=== PATIENT | male | born 1935 | race Caucasian/White ===

== ENCOUNTER 2017-02-21 06:17 | Inpatient (IN) | payer MEDICARE ==
[~2017-02-21] VITALS: Ht 177.8 cm; Wt 73.0 kg
[2017-02-21] VITALS (10 sets, daily range): BP systolic 124–226; BP diastolic 71–98; PULSE 67–88; RESP 18–28; TEMP 95.6–98; O2SAT 95–100
[~2017-02-21 06:17] MED LIST: AMLO10TA2 PO; ASPI81TA81 PO; CHEL50TA PO; CYAN100017 PO; GLIP5TAB8 PO; HYDR50TA3 PO; LEVO125T4 PO; LISI-515 PO; MAGN200T PO; PROS5TAB PO; TAMS0.4C4 PO; VITA10007 PO
[2017-02-21] MEDS ORDERED: SODIUM CHLORIDE 0.9% FLUSH 10 ML FLUSH IV FLUSH PRN ×2 (06:30→09:15)
[2017-02-21] MEDS ORDERED: HYDROmorphone HCL PF 1 MG/ML VIAL IVS ONE (06:30)
[2017-02-21] MEDS ORDERED: ONDANSETRON HCL 4 MG/2 ML VIAL IVP ONE (06:30)
--- NOTE | 2017-02-21 06:43 | PD ---
HPI Chief Complaint: Back/ Neck Pain or Injury Time Seen by Provider: 06:22 Travel History International Travel<30 days: No Contact w/Intl Traveler<30days: No Traveled to known affect area: No History of Present Illness HPI This is an 82-year-old male with a history of bladder cancer, who has bilateral ureteral stents, who presents today with complaints of severe left sided back pain. The patient was reportedly scheduled to have a procedure done by Dr. Maldonado, urologist this morning. states that they were reportedly supposed to present to the [facility] office at 6:30. She reports that he 's been in such pain overnight that when she took him to the office this morning , it was closed and she brought him immediately here. reports that one of his ureteral stents has dislodged. She believes he was supposed to have this repaired today by Dr. Maldonado. There is no reported fevers, chills. There is associated nausea and vomiting. He denies any abdominal pain. He does feel the urge to urinate when I went to examine him. PFSH Past Medical History Cancer: No Cardiovascular Problems: No Diabetes: Yes Endocrine: No Glaucoma: No Hepatitis: No Hiatal Hernia: No Hypertension: Yes Immune Disorder: No Musculoskeletal: No Neurologic: No Reproductive: No Respiratory: No Thyroid Disease: Yes Past Surgical History Abdominal Surgery: Yes (hernia repair) Cardiac Surgery: No Ear Surgery: No Endocrine Surgery: No Eye Surgery: Yes (sx for double vision left eye) Genitourinary Surgery: No Gynecologic Surgery: No Oral Surgery: No Pacemaker: No Thoracic Surgery: No Social History Alcohol Use: Yes (occ) Tobacco Use: No Substance Use: No Allergies-Medications (Allergen,Severity, Reaction): Coded Allergies: No Known Allergies (Verified , 02/21/17) Reported Meds & Prescriptions Reported Meds & Active Scripts Active Reported Zinc (Zinc Gluconate) 50 Mg Tab 1 Tab PO DAILY B-12 (Cyanocobalamin) 1,000 Mcg Cap 1,000 Mcg PO DAILY Magnesium 200 Mg Tab 250 Mg PO DAILY Vitamin C (Ascorbic Acid) 1,000 Mg Tab 1,000 Mg PO Proscar (Finasteride) 5 Mg Tab 5 Mg PO DAILY Do not crush. Tamsulosin (Tamsulosin HCl) 0.4 Mg Cap 0.4 Mg PO HS Amlodipine (Amlodipine Besylate) 10 Mg Tab 10 Mg PO DAILY Levothyroxine (Levothyroxine Sodium) 125 Mcg Tab 125 Mcg PO DAILY Review of Systems Except as stated in HPI: all other systems reviewed are Neg General / Constitutional: No: Fever, Chills HENT: No: Lightheadedness Cardiovascular: No: Chest Pain or Discomfort Respiratory: No: Cough, Shortness of Breath Gastrointestinal: Positive: Nausea, Vomiting Genitourinary: Positive: Hematuria (reported), No: Dysuria Musculoskeletal: Positive: Pain (left flank pain), No: Weakness Neurologic: No: Weakness, Dizziness, Headache Physical Exam Narrative GENERAL: Well-nourished, well-developed patient, in obvious discomfort.. SKIN: Focused skin assessment warm/dry. HEAD: Normocephalic/atraumatic. EYES: No scleral icterus. No injection or drainage. NECK: Supple, trachea midline. CARDIOVASCULAR: Regular rate and rhythm without murmurs, gallops, or rubs. RESPIRATORY: Breath sounds equal bilaterally. No accessory muscle use. GASTROINTESTINAL: Abdomen soft, non-tender, nondistended. No rebound or guarding. MUSCULOSKELETAL: No cyanosis, or edema. BACK: Subjective left flank pain. No CVA tenderness to percussion. On examination of his back, there is no lesions or extruding urostomy tubes. reports that they are subcutaneous. NEUROLOGICAL: Awake and alert and in pain. Cranial nerves II through XII intact. Motor grossly within normal limits. Five out of 5 muscle strength in all muscle groups. Normal speech. Data Data Last Documented VS Vital Signs Date Time Temp Pulse Resp B/P Pulse Ox O2 Delivery O2 Flow Rate FiO2 02/21/17 06:49 80 21 194/86 98 Room Air 02/21/17 06:19 97.5 Orders Complete Blood Count With Diff (02/21/17 06:22) Comprehensive Metabolic Panel (02/21/17 06:22) Urinalysis - C+S If Indicated (02/21/17 06:22) Iv Access Insert/Monitor (02/21/17 06:22) Ecg Monitoring (02/21/17 06:22) Oximetry (02/21/17 06:22) Ondansetron Inj (Zofran Inj) (02/21/17 06:30) Sodium Chloride 0.9% Flush (Ns Flush) (02/21/17 06:30) Abdomen, Kub Only (02/21/17 06:22) Hydromorphone Pf Inj (Dilaudid Pf Inj) (02/21/17 06:30) Ct Abd/Pel W/O Iv Contrast (02/21/17 06:43) Labs Laboratory Tests Test 02/21/17 06:25 White Blood Count 9.4 TH/MM3 Red Blood Count 2.98 MIL/MM3 Hemoglobin 9.3 GM/DL Hematocrit 26.5 % Mean Corpuscular Volume 88.9 FL Mean Corpuscular Hemoglobin 31.1 PG Mean Corpuscular Hemoglobin 34.9 % Concent Red Cell Distribution Width 14.2 % Platelet Count 140 TH/MM3 Mean Platelet Volume 6.3 FL Neutrophils (%) (Auto) 86.3 % Lymphocytes (%) (Auto) 8.3 % Monocytes (%) (Auto) 4.3 % Eosinophils (%) (Auto) 0.5 % Basophils (%) (Auto) 0.6 % Neutrophils # (Auto) 8.1 TH/MM3 Lymphocytes # (Auto) 0.8 TH/MM3 Monocytes # (Auto) 0.4 TH/MM3 Eosinophils # (Auto) 0.0 TH/MM3 Basophils # (Auto) 0.1 TH/MM3 CBC Comment DIFF FINAL Differential Comment Urine Color RED Urine Turbidity CLOUDY Urine pH 7.5 Urine Specific [place] 1.014 Urine Protein 300 OR GREATER mg/dL Urine Glucose (UA) 100 mg/dL Urine Ketones NEG mg/dL Urine Occult Blood LARGE Urine Nitrite NEG Urine Bilirubin NEGATIVE Urine Urobilinogen 0.2 MG/DL Urine Leukocyte Esterase SMALL Urine RBC /hpf Urine WBC 0-2 /hpf Urine Squamous Epithelial 0-5 /hpf Cells Urine Bacteria RARE /hpf Microscopic Urinalysis Comment CULT NOT INDICATED MDM Medical Decision Making Medical Screen Exam Complete: Yes Emergency Medical Condition: Yes Differential Diagnosis Dislodged ureteral tube versus pyelonephritis versus hydronephrosis Narrative Course He 2-year-old male with a history of bladder cancer, who has bilateral ureteral stents, who presents with complaints of severe left sided flank pain with associated nausea vomiting. The patient was scheduled to have a ureteral stent placed today by Dr. Chetan Maldonado at the [facility] [place]. The patient was brought here because the states that when they went there earlier this morning, there was no one there. She reports he is in severe pain and has had nausea vomiting. The patient appears to be in significant pain. I spoke with Dr. Maldonado, who agrees given the patient's pain and presentation he is best served by staying here at [facility]. Labs and CT are ordered. He'll be signed out to Dr. Elizabteh Rojas, physician replacing this physician, who will evaluate the studies and make the appropriate disposition. I anticipate he will likely need a stent placed by our interventional radiologist. Diagnosis Primary Impression: severe left flank pain Additional Impressions: Nausea & vomiting displaced ureteral stent Praveen Ingram MD February 21, 2017 06:43
--- NOTE | 2017-02-21 06:53 | RADRPT ---
EXAM DATE/TIME: 02/21/2017 06:31 [facility] COMPARISON: URETERAL STENT PLACEMENT,RIGHT, September 24, 2016, 9:43. INDICATIONS : Abdominal pain, nausea, and vomiting. MEDICAL HISTORY : None. SURGICAL HISTORY : None. ENCOUNTER: Initial ACUITY: 1 day PAIN SCORE: 9/10 LOCATION: Abdomen FINDINGS: Supine view of the abdomen was performed. The abdominal bowel gas pattern is normal. There is stool throughout the colon. There is no abnormal dilatation. There is a double-J right ureteral stent in pl [place]. There are calcifications in the pelvis suggestive of phleboliths. The osseous structures are unr emarkable. CONCLUSION: 1. Right sided double-J stent in good position. 2. Benign-appearing abdomen. Sivakumar Bailey MD on February 21, 2017 at 6:51 Board Certified Radiologist. This report was verified electronically.
[2017-02-21 06:54] LABS: AUTOMATED NEUTROPHIL # 8.1 TH/MM3 (1.8-7.7); BASOPHIL # 0.1 TH/MM3 (0-0.2); BASOPHIL % 0.6 % (0.0-2.0); EOSINOPHIL % 0.5 % (0.0-4.0); HEMATOCRIT 26.5 % (39.0-51.0); HEMO FLAGS DIFF FINAL; LYMPH % 8.3 % (9.0-44.0); LYMPHOCYTE # 0.8 TH/MM3 (1.0-4.8); MEAN CELL VOLUME 88.9 FL (80.0-100.0); MEAN CORPUSCULAR HEMOGLOBIN 31.1 PG (27.0-34.0); MEAN CORPUSCULAR HGB CONC 34.9 % (32.0-36.0); MONO % 4.3 % (0.0-8.0); NEUT % 86.3 % (16.0-70.0); PLATELET COUNT 140 TH/MM3 (150-450); RED BLOOD COUNT 2.98 MIL/MM3 (4.50-5.90); RED CELL DISTRIBUTION WIDTH 14.2 % (11.6-17.2); WHITE BLOOD COUNT 9.4 TH/MM3 (4.0-11.0)
[2017-02-21 07:19] LABS: PH, URINE 7.5 (5.0-8.5); URINE COLOR RED (YELLW/STRAW)
[2017-02-21 07:20] LABS: BLOOD, URINE LARGE (NEG); GLUCOSE,URINE 100 mg/dL (NEG); KETONE, URINE NEG (NEG); NITRITE,URINE NEG (NEG); WBC, URINE 0-2 /hpf (0-5)
[2017-02-21 07:21] LABS: BACTERIA, URINE RARE /hpf; COMMENT (UR) CULT NOT INDICATED; CULTURE IF INDICATED CULT NOT INDICATED; SQUAMOUS EPITHELIAL CELL URINE 0-5 /hpf (0-5)
[2017-02-21 07:29] LABS: ANION GAP 16 MEQ/L (5-15); AST (GOT) 41 U/L (15-37); BICARBONATE 18.1 MEQ/L (21.0-32.0); BLOOD UREA NITROGEN 77 MG/DL (7-18); CHLORIDE 104 MEQ/L (98-107); GLOMERULAR FILTRATION RATE 10 ML/MIN (>89); POTASSIUM 4.5 MEQ/L (3.5-5.1); SODIUM (NA) 138 MEQ/L (136-145)
[2017-02-21 07:32] LABS: ALKALINE PHOSPHATASE 94 U/L (45-117); ALT (GPT) 54 U/L (12-78); TOTAL BILIRUBIN ADULT 0.4 MG/DL (0.2-1.0)
--- NOTE | 2017-02-21 08:13 | EKG ---
Date Performed: 02/21/2017 Time Performed: 06:18:52 PTAGE: 82 years EKG: Sinus rhythm WITH FIRST DEGREE AV BLOCK RIGHT BUNDLE BRANCH BLOCK LEFT ANTERIOR FASCICULAR BLOCK ABNORMAL ECG NO PREVIOUS TRACING DOCTOR: Narinder Scott Interpretating Date/Time 02/21/2017 08:12:54
--- NOTE | 2017-02-21 08:17 | RADRPT ---
EXAM DATE/TIME: 02/21/2017 08:00 [facility] COMPARISON: No previous studies available for comparison. INDICATIONS : Left flank pain. ORAL CONTRAST: No oral contrast ingested. RADIATION DOSE: 12.25 CTDIvol (mGy) MEDICAL HISTORY : Carcinoma, bladder. Renal failure, chronic. Diabetes mellitus type 2.Hypertension. SURGICAL HISTORY : Bilateral renal stents. ENCOUNTER: Initial ACUITY: 1 day PAIN SCALE: 6/10 LOCATION: Left flank TECHNIQUE: Volumetric scanning of the abdomen and pelvis was performed. Using automated exposure control and ad justment of the mA and/or kV according to patient size, radiation dose was kept as low as reasonably achievable to obtain optimal diagnostic quality images. FINDINGS: LOWER LUNGS: The visualized lower lungs are clear. LIVER: Homogeneous density without lesion. There is no dilation of the biliary tree. No calcified gallston es. SPLEEN: Normal size without lesion. PANCREAS: Within normal limits. KIDNEYS: There is right-sided hydronephrosis eventhough there is a right-sided nephroureteral stent. The dista l aspect of the stent is barely within the urinary bladder. There is soft tissue density and debris w ithin the posterior aspect of urinary bladder. There is left-sided hydronephrosis and hydroureter wit h dilatation of the distal ureter which appears to contain soft tissue density or debris. Bilateral r enal low densities likely cysts. ADRENAL GLANDS: Within normal limits. VASCULAR: There is no aortic aneurysm. BOWEL/MESENTERY: The stomach, small bowel, and colon demonstrate no acute abnormality. There is no free intraperitone al air or fluid. Small to moderate hiatal hernia. Scattered diverticulosis. ABDOMINAL WALL: Within normal limits. RETROPERITONEUM: There is no lymphadenopathy. BLADDER: No wall thickening or mass. REPRODUCTIVE: Within normal limits. INGUINAL: There is no lymphadenopathy or hernia on the right. Fat-containing left inguinal hernia. MUSCULOSKELETAL: Within normal limits for patient age. CONCLUSION: 1. Right-sided hydroureter nephrosis even though there is a right-sided nephroureteral stent. 2. Left-sided hydronephrosis and hydroureter with dilatation of the distal left ureter containing sof t tissue density/mass and/or debris. 3. There is no mass and debris within the posterior neobladder likely combination of tumor plus hemor rhage. 4. Hiatal hernia, bilateral renal low densities and diverticulosis. Lew Mas MD on February 21, 2017 at 8:08 Board Certified Radiologist. This report was verified electronically.
[2017-02-21] MEDS ORDERED: ACETAMINOPHEN 325 MG TAB PO PRN (09:15)
[2017-02-21] MEDS ORDERED: NALOXONE HCL 0.4 MG/ML AMP IV PRN (09:15)
[2017-02-21] MEDS ORDERED: MAGNESIUM HYDROXIDE SUSP 30 ML CUP PO PRN (09:15)
[2017-02-21] MEDS ORDERED: ACETAMINOPHEN/HYDROcodone 325 MG/5 MG TAB PO PRN (09:15)
--- NOTE | 2017-02-21 09:29 | RADRPT ---
EXAM DATE/TIME: 02/21/2017 09:11 [facility] COMPARISON: No previous studies available for comparison. INDICATIONS : Cough, nausea, vomiting, blood in urine. MEDICAL HISTORY : Carcinoma, bladder. 3 years ago and pt. had chemo. SURGICAL HISTORY : Bladder stents. ENCOUNTER: Initial ACUITY: 3 days PAIN SCORE: 0/10 LOCATION: Bilateral chest FINDINGS: A single view of the chest demonstrates the lungs to be symmetrically aerated without evidence of mas s, infiltrate or effusion. The cardiomediastinal contours are unremarkable. Osseous structures are intact. CONCLUSION: No acute disease. Lew Mas MD on February 21, 2017 at 9:27 Board Certified Radiologist. This report was verified electronically.
--- NOTE | 2017-02-21 09:45 | HHI.HP ---
HPI Service [facility] Hospitalists Primary Care Physician Jasmeet Farah MD Admission Diagnosis Hydronephrosis, bladder cancer Chief Complaint: Back pain Travel History International Travel<30 Days: No Contact w/Intl Traveler <30 Da: No Traveled to Known Affected Are: No History of Present Illness Mr. 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 Maldonado. Pt presented to the ED with complaints of worsening back pain. Pt reports that a few days ago one of his ureteral stents came out and has not been urinating well since that time. Pts reports that he has been having hematuria for the last 3 days. He has also been very nauseated and has not eaten or had any fluid intake since yesterday afternoon. And was eating very minimal for the last [address] Maldonado as an outpt yesterday and had been planned for cystoscopy with possible bilateral stent placement for today but he was in too much pain and proceeded to the ED this morning. Labs at admission noted an acute worsening of his baseline CKD with Cr 5.59 today. His baseline renal function in outpt records noted Cr between 1.9-2.3. CT Abd/pelvis noted tight- sided hydroureter nephrosis even though there is a right-sided nephroureteral stent, left-sided hydronephrosis and hydroureter with dilatation of the distal left ureter containing soft tissue density/mass and/or debris, and there is no mass and debris within the posterior neobladder likely combination of tumor plus hemorrhage. Denies any fevers/chills, chest pain, SOB, palpitations, dizziness, or weakness. Review of Systems Constitutional: DENIES: Fever, Chills Eyes: DENIES: Vision loss Ears, nose, mouth, throat: DENIES: Hearing loss Respiratory: DENIES: Cough, Shortness of breath Cardiovascular: DENIES: Chest pain, Palpitations, Lower Extremity Edema Gastrointestinal: COMPLAINS OF: Nausea, DENIES: Abdominal pain, Constipation, Diarrhea Genitourinary: COMPLAINS OF: Hematuria, DENIES: Dysuria Musculoskeletal: COMPLAINS OF: Back pain Integumentary: DENIES: Rash Immunologic/allergic: DENIES: Urticaria Neurologic: DENIES: Headache Psychiatric: DENIES: Confusion Other Decreased urine output Past Family Social History Past Medical History CKD, stage 4, Cr typically between 2-2.3 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, on Opdivo Hydronephrosis due to ureteral stricture Chronic DVT/Hx of PE HTN Hyperlipidemia Diabetes mellitus, Hgb A1C 5.8% on 02/18/17 Hypothyroidism Chronic anemia Cataracts Past Surgical History Cystoscopy with ureteral stent placement Bilateral cataract surgery Hernia repair Varicose vein ligation Strabismus repair Reported Medications -Proscar 5 Mg PO DAILY -Tamsulosin 0.4 Mg PO HS -Amlodipine 10 Mg PO DAILY ?Levothyroxine 125 Mcg PO DAILY Zinc (Zinc Gluconate) 50 Mg Tab 1 Tab PO DAILY B-12 (Cyanocobalamin) 1,000 Mcg Cap 1,000 Mcg PO DAILY Magnesium 200 Mg Tab 250 Mg PO DAILY Vitamin C (Ascorbic Acid) 1,000 Mg Tab 1,000 Mg PO Allergies: Coded Allergies: No Known Allergies (Verified , 02/21/17) Family History Father with hx of Leukemia Social History Denies any alcohol, tobacco or illicit drug use Physical Exam Vital Signs Vital Signs Date Time Temp Pulse Resp B/P Pulse Ox O2 Delivery O2 Flow Rate FiO2 02/21/17 07:39 86 18 165/78 97 Room Air 02/21/17 06:49 80 21 194/86 98 Room Air 02/21/17 06:19 97.5 82 28 226/94 100 Physical Exam GENERAL: This is a well-nourished, well-developed patient, in no apparent distress. HEENT: Atraumatic. Normocephalic. No temporal or scalp tenderness. No scleral icterus. Airway patent. NECK: Trachea midline, supple, nontender. CARDIO: Regular. RESP: CTA bilaterally. No wheezes, rales, or rhonchi. ABD: +BS, soft, non-tender, nondistended. EXT: Extremities without clubbing, cyanosis, or edema. NEURO: Awake and alert. Motor and sensory grossly within normal limits. Normal speech. Laboratory Laboratory Tests Test 02/21/17 06:25 White Blood Count 9.4 Red Blood Count 2.98 Hemoglobin 9.3 Hematocrit 26.5 Mean Corpuscular Volume 88.9 Mean Corpuscular Hemoglobin 31.1 Mean Corpuscular Hemoglobin 34.9 Concent Red Cell Distribution Width 14.2 Platelet Count 140 Mean Platelet Volume 6.3 Neutrophils (%) (Auto) 86.3 Lymphocytes (%) (Auto) 8.3 Monocytes (%) (Auto) 4.3 Eosinophils (%) (Auto) 0.5 Basophils (%) (Auto) 0.6 Neutrophils # (Auto) 8.1 Lymphocytes # (Auto) 0.8 Monocytes # (Auto) 0.4 Eosinophils # (Auto) 0.0 Basophils # (Auto) 0.1 CBC Comment DIFF FINAL Differential Comment Urine Color RED Urine Turbidity CLOUDY Urine pH 7.5 Urine Specific [place] 1.014 Urine Protein 300 OR GREATER Urine Glucose (UA) 100 Urine Ketones NEG Urine Occult Blood LARGE Urine Nitrite NEG Urine Bilirubin NEGATIVE Urine Urobilinogen 0.2 Urine Leukocyte Esterase SMALL Urine RBC Urine WBC 0-2 Urine Squamous Epithelial 0-5 Cells Urine Bacteria RARE Microscopic Urinalysis Comment CULT NOT INDICATED Sodium Level 138 Potassium Level 4.5 Chloride Level 104 Carbon Dioxide Level 18.1 Anion Gap 16 Blood Urea Nitrogen 77 Creatinine 5.59 Estimat Glomerular Filtration 10 Rate Random Glucose 203 Calcium Level 9.3 Total Bilirubin 0.4 Aspartate Amino Transf 41 (AST/SGOT) Alanine Aminotransferase 54 (ALT/SGPT) Alkaline Phosphatase 94 Total Protein 8.0 Albumin 3.5 Result Diagram: 02/21/1762402/21/17624 Imaging Last Impressions Abdomen/Pelvis CT 02/21/17642 Signed Impressions: Service Date/Time: Tuesday, February 21, 2017 08:00 - CONCLUSION: 1. Right-sided hydroureter nephrosis even though there is a right-sided nephroureteral stent. 2. Left-sided hydronephrosis and hydroureter with dilatation of the distal left ureter containing soft tissue density/mass and/or debris. 3. There is no mass and debris within the posterior neobladder likely combination of tumor plus hemorrhage. 4. Hiatal hernia, bilateral renal low densities and diverticulosis. Lew Mas MD Abdomen X-Ray 02/21/17621 Signed Impressions: Service Date/Time: Tuesday, February 21, 2017 06:31 - CONCLUSION: 1. Right sided double-J stent in good position. 2. Benign-appearing abdomen. Sivakumar Bailey MD Septic Shock Reassessment Heart: Regular rate and rhythm Lungs: Clear Skin: Warm Assessment and Plan Problem List: (1) Hydronephrosis due to obstructive malignant bladder cancer Status: Acute Plan: - Pt admitted with worsening pain and PARAM/CKD, stage 4 secondary to obstructing metastatic urothelial bladder cancer - Pt follows with Dr. Maldonado and had been planned for cystoscopy with possible bilateral stent placement today but pt was in too much pain and proceeded to the ED. - Labs at admission noted an acute worsening of his baseline CKD with Cr 5.59 today. - CT Abd/pelvis --> Right-sided hydroureter nephrosis even though there is a right-sided nephroureteral stent. Left-sided hydronephrosis and hydroureter with dilatation of the distal left ureter containing soft tissue density/mass and/or debris. There is no mass and debris within the posterior neobladder likely combination of tumor plus hemorrhage. - Urology has been consulted. - The case has been discussed with IR and pt would likely benefit from bilateral nephrostomy tubes and this was discussed with Urology as well and this is planned for today. - Urology has also requested antegrade nephrostogram but IR reports that this cannot be performed until Friday. - IVF - Monitor labs - Pain control PRN - DVT prophylaxis (2) Acute worsening of stage 4 chronic kidney disease Status: Acute Plan: - See above. 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 Maldonado for Urology and Dr. Machado for Oncology. - Pt is currently on Opdivo (4) HTN (hypertension), benign Status: Chronic Plan: - Home meds continued - Clonidine PRN (5) Hypothyroidism Status: Chronic Plan: - Home meds continued (6) Hyperlipidemia Status: Chronic Assessment and Plan Patient examined. Assessment and plan formulated with Jessenia Ramsey PA-C. I agree with the above. Case d/w Dr. Majano, Urology (02/21/17) Case d/w Dr. Henderson, Interventional Radiology (02/21/17) Will obtain b/l percutaneous nephrostomy tubes once kidneys are decompressed, consider b/l antegrade nephrostogram repeat BMP in AM, monitor renal function Physician Certification 2 Midnight Certification Type: Admission for Inpatient Services Order for Inpatient Services The services are ordered in accordance with Medicare regulations or non- Medicare payer requirements, as applicable. In the case of services not specified as inpatient-only, they are appropriately provided as inpatient services in accordance with the 2-midnight benchmark. Estimated LOS (days): 4 4 days is the estimated time the patient will need to remain in the hospital, assuming treatment plan goals are met and no additional complications. Post-Hospital Plan: Not yet determined Jessenia Ramsey February 21, 2017 09:45 Dustin Moreno DO February 21, 2017 11:03
[2017-02-21] MEDS ORDERED: cloNIDine HCL 0.1 MG TAB PO PRN (10:00)
[2017-02-21] MEDS: ONDANSETRON HCL 4 MG/2 ML VIAL IVP PRN ×2 (10:20→16:59)
[2017-02-21 10:44] LABS: APTT (PATIENT) 23.6 SEC (24.3-30.1); PROTHROMBIN TIME - PATIENT 10.5 SEC (9.8-11.6)
[2017-02-21] MEDS: FINASTERIDE 5 MG TAB PO SCH (11:00)
--- NOTE | 2017-02-21 11:32 | PD ---
Data Data Last Documented VS Vital Signs Date Time Temp Pulse Resp B/P Pulse Ox O2 Delivery O2 Flow Rate FiO2 02/21/17 07:39 86 18 165/78 97 Room Air 02/21/17 06:19 97.5 Orders Complete Blood Count With Diff (02/21/17 06:22) Comprehensive Metabolic Panel (02/21/17 06:22) Urinalysis - C+S If Indicated (02/21/17 06:22) Iv Access Insert/Monitor (02/21/17 06:22) Ecg Monitoring (02/21/17 06:22) Oximetry (02/21/17 06:22) Ondansetron Inj (Zofran Inj) (02/21/17 06:30) Sodium Chloride 0.9% Flush (Ns Flush) (02/21/17 06:30) Abdomen, Kub Only (02/21/17 06:22) Hydromorphone Pf Inj (Dilaudid Pf Inj) (02/21/17 06:30) Ct Abd/Pel W/O Iv Contrast (02/21/17 06:43) Electrocardiogram (02/21/17 06:18) Consult Urology (02/21/17 ) Admit To Inpatient (02/21/17 ) Code Status (02/21/17 09:08) Vital Signs (Adult) Q4H (02/21/17 09:08) Activity Oob With Assistance (02/21/17 09:08) Diet Npo (02/21/17 Breakfast) Sodium Chloride 0.9% Flush (Ns Flush) (02/21/17 09:15) Sodium Chloride 0.9% Flush (Ns Flush) (02/21/17 21:00) Acetaminophen (Tylenol) (02/21/17 09:15) Ondansetron Inj (Zofran Inj) (02/21/17 09:15) Magnesium Hydroxide Liq (Milk Of Magnesi (02/21/17 09:15) Temazepam (Restoril) (02/21/17 09:15) Basic Metabolic Panel (Bmp) (02/22/17 06:00) Chest, Single Ap (02/21/17 09:08) Electrocardiogram (02/21/17 09:08) Pt Request For Service (02/21/17 09:08) Scd Bilateral/Knee High JUDITH.BID (02/21/17 09:08) Naloxone Inj (Narcan Inj) (02/21/17 09:15) Inpatient Certification (02/21/17 ) Acetamin-Hydrocod 325-5 Mg ([place] 5-325 (02/21/17 09:15) Hydromorphone Pf Inj (Dilaudid Pf Inj) (02/21/17 09:15) Admit Order (Ed Use Only) (02/21/17 09:14) Labs Laboratory Tests Test 02/21/17 06:25 White Blood Count 9.4 TH/MM3 Red Blood Count 2.98 MIL/MM3 Hemoglobin 9.3 GM/DL Hematocrit 26.5 % Mean Corpuscular Volume 88.9 FL Mean Corpuscular Hemoglobin 31.1 PG Mean Corpuscular Hemoglobin 34.9 % Concent Red Cell Distribution Width 14.2 % Platelet Count 140 TH/MM3 Mean Platelet Volume 6.3 FL Neutrophils (%) (Auto) 86.3 % Lymphocytes (%) (Auto) 8.3 % Monocytes (%) (Auto) 4.3 % Eosinophils (%) (Auto) 0.5 % Basophils (%) (Auto) 0.6 % Neutrophils # (Auto) 8.1 TH/MM3 Lymphocytes # (Auto) 0.8 TH/MM3 Monocytes # (Auto) 0.4 TH/MM3 Eosinophils # (Auto) 0.0 TH/MM3 Basophils # (Auto) 0.1 TH/MM3 CBC Comment DIFF FINAL Differential Comment Urine Color RED Urine Turbidity CLOUDY Urine pH 7.5 Urine Specific [place] 1.014 Urine Protein 300 OR GREATER mg/dL Urine Glucose (UA) 100 mg/dL Urine Ketones NEG mg/dL Urine Occult Blood LARGE Urine Nitrite NEG Urine Bilirubin NEGATIVE Urine Urobilinogen 0.2 MG/DL Urine Leukocyte Esterase SMALL Urine RBC /hpf Urine WBC 0-2 /hpf Urine Squamous Epithelial 0-5 /hpf Cells Urine Bacteria RARE /hpf Microscopic Urinalysis Comment CULT NOT INDICATED Sodium Level 138 MEQ/L Potassium Level 4.5 MEQ/L Chloride Level 104 MEQ/L Carbon Dioxide Level 18.1 MEQ/L Anion Gap 16 MEQ/L Blood Urea Nitrogen 77 MG/DL Creatinine 5.59 MG/DL Estimat Glomerular Filtration 10 ML/MIN Rate Random Glucose 203 MG/DL Calcium Level 9.3 MG/DL Total Bilirubin 0.4 MG/DL Aspartate Amino Transf 41 U/L (AST/SGOT) Alanine Aminotransferase 54 U/L (ALT/SGPT) Alkaline Phosphatase 94 U/L Total Protein 8.0 GM/DL Albumin 3.5 GM/DL [facility] Supervised Visit with [facility]AN: Yes Interpretation(s) Afebrile, anemic Renal insufficiency worsening from prior labs, anion gap is 16 with a low bicarbonate Urinalysis: Large amount of blood Last 24 hours Impressions Chest X-Ray 02/21/17 0908 Signed Impressions: Service Date/Time: Tuesday, February 21, 2017 09:11 - CONCLUSION: No acute disease. Lew Mas MD Abdomen/Pelvis CT 02/21/17 0643 Signed Impressions: Service Date/Time: Tuesday, February 21, 2017 08:00 - CONCLUSION: 1. Right-sided hydroureter nephrosis even though there is a right-sided nephroureteral stent. 2. Left-sided hydronephrosis and hydroureter with dilatation of the distal left ureter containing soft tissue density/mass and/or debris. 3. There is no mass and debris within the posterior neobladder likely combination of tumor plus hemorrhage. 4. Hiatal hernia, bilateral renal low densities and diverticulosis. Lew Mas MD Abdomen X-Ray 02/21/1722 Signed Impressions: Service Date/Time: Tuesday, February 21, 2017 06:31 - CONCLUSION: 1. Right sided double-J stent in good position. 2. Benign-appearing abdomen. Sivakumar Bailey MD Narrative Course This is an 82-year-old male who presents to the emergency department with a history of bladder cancer followed by Dr. Maldonado who presents having passed his left ureteral stent yesterday with severe left-sided flank pain associated with vomiting. He was placed on a monitor and an IV was established. Labs are obtained which were reassuring. CT was obtained which demonstrates bilateral hydronephrosis. I spoke to Dr. Majano who works with Dr. Maldonado regarding the patient and he would like interventional radiology to evaluate the patient for a possible left-sided ureteral stent versus nephrostomy tube. I discussed this with Dr. Moreno who will follow-up. Physician Communication Physician Communication Discussed with Dr. Majano and Dr. Moreno Diagnosis Primary Impression: severe left flank pain Additional Impressions: Nausea & vomiting displaced ureteral stent Elizabeth Rojas MD February 21, 2017 11:32
[2017-02-21] MEDS ORDERED: LEVOFLOXACIN 500 MG PREMIX INJ 100 ML IV ONE (11:34)
[2017-02-21] MEDS ORDERED: fentaNYL CITRATE 250 MCG/5 ML AMP ONE (11:34)
[2017-02-21] MEDS ORDERED: MIDAZOLAM HCL 5 MG/5 ML VIAL ONE (11:34)
[2017-02-21] MEDS ORDERED: IOHEXOL 350 MG/ML 50 ML BTL (for RAD DIAG) ONE (12:47)
--- NOTE | 2017-02-21 12:57 | PD.RAD ---
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 Right ureteric stent. 8FR PCNU on left. 8FR PCN on right Plan Right sided antegrade pyelogram on Friday, -15 with possible ureteric stent removal and placement of right sided PCNU Juan Henderson MD February 21, 2017 12:57
[2017-02-21] MEDS: HYDROmorphone HCL PF 1 MG/ML VIAL IV PUSH PRN (14:53)
--- NOTE | 2017-02-21 16:01 | RADRPT ---
EXAM DATE/TIME: 02/21/2017 12:00 [facility] COMPARISON: No previous studies available for comparison. INDICATIONS : Patient is in need of placement of a left sided nephroureteral tube for drainage of left kidney due t o ureteral stricture. MEDICAL HISTORY : History of metastatic urothelial bladder cancer, hydronephrosis, chronic DVT, PE, HTN, hyperlipidemia , DM, hypothyroidism, chronic anemia, cataracts. SURGICAL HISTORY : History of bilateral ureteral stent placement, cystoscopy, bilateral catarct removal, hernia repair, varicose vein ligation, strabismus repair. ENCOUNTER: Initial ACUITY: 1 week PAIN SCORE: 0/10 FLUORO TIME: 9.0 minutes IMAGE SERIES: 3 SEDATION TIME: 35 minutes CONTRAST: 11 cc Omnipaque (iohexol) 350 MEDICATION(S): 1.) 4.5 mg midazolam (Versed) IV 2.) 225 mcg fentanyl (Sublimaze) IV Vancomycin within 2 hours of procedure, Ancef (or alternative) within 1 hour of procedure. DEVICE(S): 1.) 8 [place] 24cm nephroureteral stent Flexima PROCEDURE : 1. Ultrasound-guided puncture of the kidney. 2. Antegrade percutaneous pyelogram. 3. Percutaneous nephroureteral stent placement. 4. Conscious sedation with continuous EKG and oximetry monitoring. The risks, benefits and alternatives to the procedure were explained and verbal and written consent w as obtained. The site was prepped in sterile fashion. Full sterile technique was used, including ca p, mask, sterile gloves and gown and a large sterile sheet. Hand hygiene and 2% chlorhexidine and/or betadine/alcohol prep was utilized per protocol for cutaneous antisepsis. The skin and subcutaneous tissues were infiltrated with local anesthetic solution. With ultrasound and fluoroscopic guidance the selected kidney was punctured and a percutaneous antegr lalito pyelogram was performed with CO2 demonstrating a dilated collecting system. A posterior, lower p ole calyx was selected and this area was accessed with the 18 gauge Galarza blunt needle after approp riate local anesthetic. Serial dilatation was performed and the prescribed nephroureteral stent was p laced with the proximal portion within the renal pelvis and the distal extent in the urinary bladder. Of note, there is distal ureteric occlusion due to the bladder mass. Injection of positive contra st demonstrates good position of the catheter. Conscious sedation was performed with the prescribed dosages and duration as above in the presence of an independent trained radiology nurse to assist in the monitoring of the patient. EKG and oximetry remained stable throughout the procedure. The patient tolerated the procedure well and there were n o complications. The patient was sent to post anesthesia recovery in stable condition. CONCLUSION: Uncomplicated nephroureteral stent placement as above. Juan Henderson MD on February 21, 2017 at 15:52 Board Certified Radiologist. This report was verified electronically.
--- NOTE | 2017-02-21 16:08 | RADRPT ---
EXAM DATE/TIME: 02/21/2017 12:00 [facility] COMPARISON: No previous studies available for comparison. INDICATIONS : Patient is in need of placement of a right sided nephrostomy tube for drainage of right kidney due to ureteral stricture. MEDICAL HISTORY : History of metastatic urothelial bladder cancer, hydronephrosis, chronic DVT, PE, HTN, hyperlipidemia , DM, hypothyroidism, chronic anemia, cataracts. SURGICAL HISTORY : History of bilateral ureteral stent placement, cystoscopy, bilateral catarct removal, hernia repair, varicose vein ligation, strabismus repair. ENCOUNTER: Initial ACUITY: 1 week PAIN SCORE: 0/10 FLUORO TIME: 9.0 minutes IMAGE SERIES: 1 SEDATION TIME: 35 minutes CONTRAST: 4 cc Omnipaque (iohexol) 350 MEDICATION(S): 1.) 4.5 mg midazolam (Versed) IV 2.) 225 mcg fentanyl (Sublimaze) IV Vancomycin within 2 hours of procedure, Ancef (or alternative) within 1 hour of procedure. DEVICE(S): 1.) 8.3fr/25cm nephrostomy catheter Expel PROCEDURE : 1. Ultrasound-guided puncture of the kidney. 2. Antegrade percutaneous pyelogram. 3. Percutaneous nephrostomy placement. 4. Conscious sedation with continuous EKG and oximetry monitoring. The risks, benefits and alternatives to the procedure were explained and verbal and written consent w as obtained. The site was prepped in sterile fashion. Full sterile technique was used, including ca p, mask, sterile gloves and gown and a large sterile sheet. Hand hygiene and 2% chlorhexidine and/or betadine/alcohol prep was utilized per protocol for cutaneous antisepsis. The skin and subcutaneous tissues were infiltrated with local anesthetic solution. With fluoroscopic guidance only, a 22 gauge spinal needle was advanced down to the patient's existing double-J stent in the renal pelvis. Would be free return of urine, CO2 was injected to delineate the posterior calyceal system. An 18 gauge Galarza blunt needle was advanced into a lower pole posterior calyx after appropriate local anesthetic. An 035 wire was advanced through the outer cannula. Seria l dilatation was performed and a prescribed nephrostomy tube was placed within the renal pelvis and s utured in place. Conscious sedation was performed with the prescribed dosages and duration as above in the presence of an independent trained radiology nurse to assist in the monitoring of the patient. EKG and oximetry remained stable throughout the procedure. The patient tolerated the procedure well and there were n o complications. The patient was sent to post anesthesia recovery in stable condition. CONCLUSION: 1. Uncomplicated nephrostomy tube placement as above. 2. Patient has an existing double-J stent in the right collecting system and bladder which was placed by urology sometime ago, according to the patient and his . After weekend drainage, we can attem pt to remove this stent percutaneously through the above access and convert the existing PCN to a PCN U. An order was placed on the patient's chart to make him n.p.o. after midnight on Friday, -. Juan Henderson MD on February 21, 2017 at 15:58 Board Certified Radiologist. This report was verified electronically.
--- NOTE | 2017-02-21 20:31 | PD.CONS ---
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 Patient is followed by Dr. Maldonado and was recently seen in clinic with the left stent having fallen out. He was scheduled to have this stent replaced on the left this morning, however his condition worsened with significant pain and N/V that he reported to the ED. He was found to have a Cr of 5.5 with a baseline in the [address] scan also identified left hydronephrosis with mild right hydronephrosis with a stent in the right. He then underwent bilateral nephrostomy tube placement with successful resolution of his pain. Currently feeling much better. Review of Systems ROS Limitations: Clinical Condition Constitutional: DENIES: Fever Endocrine: DENIES: Polyuria Eyes: DENIES: Blurred vision Ears, nose, mouth, throat: DENIES: Hearing loss Respiratory: DENIES: Apneas, Cough Cardiovascular: DENIES: Chest pain Gastrointestinal: DENIES: Abdominal pain Genitourinary: COMPLAINS OF: Hematuria, Dysuria Musculoskeletal: COMPLAINS OF: Back pain Integumentary: DENIES: Rash Hematologic/lymphatic: DENIES: Bruising Immunologic/allergic: DENIES: Eczema Neurologic: DENIES: Headache Psychiatric: DENIES: Anxiety Except as stated in HPI: all other systems reviewed are Neg Past Family Social History Past Medical History CKD, stage 4, Cr typically between 2-2.3 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, on Opdivo Hydronephrosis due to ureteral stricture Chronic DVT/Hx of PE HTN Hyperlipidemia Diabetes mellitus, Hgb A1C 5.8% on 02/18/17 Hypothyroidism Chronic anemia Cataracts Past Surgical History Cystoscopy with ureteral stent placement Bilateral cataract surgery Hernia repair Varicose vein ligation Strabismus repair Reported Medications Reported Meds & Active Scripts Active Reported Zinc (Zinc Gluconate) 50 Mg Tab 1 Tab PO DAILY B-12 (Cyanocobalamin) 1,000 Mcg Cap 1,000 Mcg PO DAILY Magnesium 200 Mg Tab 250 Mg PO DAILY Vitamin C (Ascorbic Acid) 1,000 Mg Tab 1,000 Mg PO Proscar (Finasteride) 5 Mg Tab 5 Mg PO DAILY Do not crush. Tamsulosin (Tamsulosin HCl) 0.4 Mg Cap 0.4 Mg PO HS Amlodipine (Amlodipine Besylate) 10 Mg Tab 10 Mg PO DAILY Levothyroxine (Levothyroxine Sodium) 125 Mcg Tab 125 Mcg PO DAILY Allergies: Coded Allergies: No Known Allergies (Verified , 02/21/17) Active Ordered Medications Current Medications Medications (Trade) Dose Ordered Sig/Trisha Route Start Time Stop Time Status Last Admin (NS Flush) 2 ml UNSCH PRN IV FLUSH 02/21/17 09:15 (NS Flush) 2 ml BID IV FLUSH 02/21/17 21:00 (Tylenol) 650 mg Q4H PRN PO 02/21/17 09:15 (Zofran Inj) 4 mg Q6H PRN IVP 02/21/17 09:15 02/21/17 16:59 (Milk Of Magnesia Liq) 30 ml Q12H PRN PO 02/21/17 09:15 (Restoril) 15 mg HS PRN PO 02/21/17 09:15 (Narcan Inj) 0.4 mg UNSCH PRN IV 02/21/17 09:15 ([place] 5-325 Mg) 1 tab Q4H PRN PO 02/21/17 09:15 (Dilaudid Pf Inj) 1 mg Q4H PRN IV PUSH 02/21/17 09:15 02/21/17 14:53 (Norvasc) 10 mg DAILY PO 02/21/17 10:00 02/21/17 10:20 (Proscar) 5 mg DAILY PO 02/21/17 11:00 (Flomax) 0.4 mg HS PO 02/21/17 21:00 (Catapres) 0.1 mg Q6H PRN PO 02/21/17 10:00 Family History Father with hx of Leukemia Social History Denies any alcohol, tobacco or illicit drug use Physical Exam Vital Signs Date Time Temp Pulse Resp B/P Pulse Ox O2 Delivery O2 Flow Rate FiO2 02/21/17 15:00 95.6 77 18 169/87 97 02/21/17 13:35 67 20 156/87 96 02/21/17 13:05 72 20 124/71 98 02/21/17 12:50 98.0 75 20 154/85 95 02/21/17 10:45 88 18 183/98 97 Room Air 02/21/17 10:28 18 02/21/17 10:00 85 18 208/95 99 Room Air 02/21/17 07:39 86 18 165/78 97 Room Air 02/21/17 06:49 80 21 194/86 98 Room Air 02/21/17 06:19 97.5 82 28 226/94 100 Physical Exam GENERAL: This is a well-nourished, well-developed patient, in no apparent distress. SKIN: No rashes, ecchymoses or lesions. Cool and dry. HEAD: Atraumatic. Normocephalic. EYES: Extraocular motions intact. ENT: Nose without bleeding, purulent drainage NECK: Trachea midline. CARDIOVASCULAR: Normal pulses, extremities well perfused RESPIRATORY: Nonlabored, equal chest rise GASTROINTESTINAL: Abdomen soft, non-tender, nondistended. GENITOURINARY: Bilateral nephrostomy tubes in place, light red urine noted MUSCULOSKELETAL: Extremities without clubbing, cyanosis, or edema. NEUROLOGICAL: Awake and alert. Motor and sensory grossly within normal limits. Normal speech. Lab results reviewed: Yes Laboratory Tests Test 02/21/17 02/21/17 06:25 10:15 White Blood Count 9.4 Red Blood Count 2.98 Hemoglobin 9.3 Hematocrit 26.5 Mean Corpuscular Volume 88.9 Mean Corpuscular Hemoglobin 31.1 Mean Corpuscular Hemoglobin 34.9 Concent Red Cell Distribution Width 14.2 Platelet Count 140 Mean Platelet Volume 6.3 Neutrophils (%) (Auto) 86.3 Lymphocytes (%) (Auto) 8.3 Monocytes (%) (Auto) 4.3 Eosinophils (%) (Auto) 0.5 Basophils (%) (Auto) 0.6 Neutrophils # (Auto) 8.1 Lymphocytes # (Auto) 0.8 Monocytes # (Auto) 0.4 Eosinophils # (Auto) 0.0 Basophils # (Auto) 0.1 CBC Comment DIFF FINAL Differential Comment Urine Color RED Urine Turbidity CLOUDY Urine pH 7.5 Urine Specific [place] 1.014 Urine Protein 300 OR GREATER Urine Glucose (UA) 100 Urine Ketones NEG Urine Occult Blood LARGE Urine Nitrite NEG Urine Bilirubin NEGATIVE Urine Urobilinogen 0.2 Urine Leukocyte Esterase SMALL Urine RBC Urine WBC 0-2 Urine Squamous Epithelial 0-5 Cells Urine Bacteria RARE Microscopic Urinalysis Comment CULT NOT INDICATED Sodium Level 138 Potassium Level 4.5 Chloride Level 104 Carbon Dioxide Level 18.1 Anion Gap 16 Blood Urea Nitrogen 77 Creatinine 5.59 Estimat Glomerular Filtration 10 Rate Random Glucose 203 Calcium Level 9.3 Total Bilirubin 0.4 Aspartate Amino Transf 41 (AST/SGOT) Alanine Aminotransferase 54 (ALT/SGPT) Alkaline Phosphatase 94 Total Protein 8.0 Albumin 3.5 Prothrombin Time 10.5 Prothromb Time International 1.0 Ratio Activated Partial 23.6 Thromboplast Time Result Diagram: 02/21/1762402/21/17624 Personally reviewed images: Yes Imaging Last Impressions Chest X-Ray 02/21/1708 Signed Impressions: Service Date/Time: Tuesday, February 21, 2017 09:11 - CONCLUSION: No acute disease. Lew Mas MD Abdomen/Pelvis CT 02/21/17 0643 Signed Impressions: Service Date/Time: Tuesday, February 21, 2017 08:00 - CONCLUSION: 1. Right-sided hydroureter nephrosis even though there is a right-sided nephroureteral stent. 2. Left-sided hydronephrosis and hydroureter with dilatation of the distal left ureter containing soft tissue density/mass and/or debris. 3. There is no mass and debris within the posterior neobladder likely combination of tumor plus hemorrhage. 4. Hiatal hernia, bilateral renal low densities and diverticulosis. Lew Mas MD Abdomen X-Ray 02/21/17 0622 Signed Impressions: Service Date/Time: Tuesday, February 21, 2017 06:31 - CONCLUSION: 1. Right sided double-J stent in good position. 2. Benign-appearing abdomen. Sivakumar Bailey MD Nephrostomy 02/21/17 0000 Signed Impressions: Service Date/Time: Tuesday, February 21, 2017 12:00 - CONCLUSION: 1. Uncomplicated nephrostomy tube placement as above. 2. Patient has an existing double-J stent in the right collecting system and bladder which was placed by urology sometime ago, according to the patient and his . After weekend drainage, we can attempt to remove this stent percutaneously through the above access and convert the existing PCN to a PCNU. An order was placed on the patient's chart to make him n.p.o. after midnight on Friday, 5-14. Juan Henderson MD Drainage Catheter Insertion 02/21/17 0000 Signed Impressions: Service Date/Time: Tuesday, February 21, 2017 12:00 - CONCLUSION: Uncomplicated nephroureteral stent placement as above. Juan Henderson MD Assessment and Plan Problem List: (1) Hydronephrosis of right kidney ICD Code: N13.30 Status: Acute (2) Acute worsening of stage 4 chronic kidney disease ICD Code: N28.9 Status: Acute Assessment and Plan 82yo male with metastatic urothelial carcinoma of the bladder -Bilateral nephrostomy tubes place, draining well. Patient appears comfortable -Antegrade nephrostogram by IR planned for Friday to evaluate obstruction bilaterally -May consider internalizing neph tubes to stents if patient doing well on Friday -Continue to monitor Cr -Will follow Rick Majano MD February 21, 2017 20:31
[2017-02-21] MEDS: SODIUM CHLORIDE 0.9% FLUSH 10 ML FLUSH IV FLUSH SCH (21:24)
[2017-02-21] MEDS: TAMSULOSIN HCL 0.4 MG CAP PO SCH (21:24)
[2017-02-22] VITALS (14 sets, daily range): BP systolic 123–158; BP diastolic 63–76; PULSE 63–85; RESP 16–29; TEMP 96.5–98.2; O2SAT 95–99
[2017-02-22] MEDS: LEVOTHYROXINE SODIUM 125 MCG TAB PO SCH (06:14)
[2017-02-22] MEDS: ONDANSETRON HCL 4 MG/2 ML VIAL IVP PRN (07:25)
[2017-02-22] MEDS: FINASTERIDE 5 MG TAB PO SCH (07:27)
[2017-02-22] MEDS: SODIUM CHLORIDE 0.9% FLUSH 10 ML FLUSH IV FLUSH SCH ×2 (07:27→22:03)
[2017-02-22 09:45] LABS: AUTOMATED NEUTROPHIL # 5.7 TH/MM3 (1.8-7.7); BASOPHIL % 0.5 % (0.0-2.0); EOSINOPHIL % 0.3 % (0.0-4.0); LYMPHOCYTE # 0.5 TH/MM3 (1.0-4.8); MEAN CELL VOLUME 89.7 FL (80.0-100.0); MEAN CORPUSCULAR HEMOGLOBIN 30.8 PG (27.0-34.0); MEAN CORPUSCULAR HGB CONC 34.4 % (32.0-36.0); MONO % 6.8 % (0.0-8.0); NEUT % 85.4 % (16.0-70.0); PLATELET COUNT 134 TH/MM3 (150-450); RED BLOOD COUNT 2.19 MIL/MM3 (4.50-5.90); RED CELL DISTRIBUTION WIDTH 14.7 % (11.6-17.2); WHITE BLOOD COUNT 6.7 TH/MM3 (4.0-11.0)
[2017-02-22 09:48] LABS: HEMO FLAGS DIFF FINAL
[2017-02-22 09:51] LABS: HEMATOCRIT 19.6 % (39.0-51.0)
[2017-02-22 10:01] LABS: BICARBONATE 23.7 MEQ/L (21.0-32.0); MAGNESIUM 2.3 MG/DL (1.5-2.5); POTASSIUM 4.5 MEQ/L (3.5-5.1)
[2017-02-22] MEDS ORDERED: SODIUM CHLOR 0.9% 250 ML INJ 250 ML IV ONE (10:30)
[2017-02-22] MEDS ORDERED: FUROSEMIDE 20 MG/2 ML VIAL IV ONE (10:30)
--- NOTE | 2017-02-22 15:21 | HHI.PR ---
Subjective Remarks bright red blood from both nephrostomy tubes and penis Objective Vitals Vital Signs Date Time Temp Pulse Resp B/P Pulse Ox O2 Delivery O2 Flow Rate FiO2 02/22/17 13:50 97.7 85 16 131/63 97 02/22/17 13:35 98.2 72 16 137/67 96 02/22/17 13:20 97.8 74 20 139/68 97 02/22/17 13:10 97.7 75 16 125/68 98 02/22/17 12:43 96.9 67 18 123/63 96 02/22/17 09:32 64 02/22/17 08:17 96.5 63 16 145/72 95 02/22/17 04:00 97.7 71 18 128/73 97 02/22/17 00:00 97.5 75 29 158/76 99 02/22/17 00:00 77 02/21/17 20:00 96.5 74 22 176/86 99 02/21/17 02/21/17 02/22/17 15:00 23:00 07:00 Intake Total 0 ml 60 ml Output Total 375 ml 2050 ml 550 ml Balance -375 ml -1990 ml -550 ml Intake Oral 60 ml IV Total 0 ml Output Urine Total 100 ml Emesis 600 ml Drainage Total 375 ml 1450 ml 450 ml Result Diagram: 02/22/1792602/22/17926 Imaging Last Impressions Abdomen/Pelvis CT 02/21/1743 Signed Impressions: Service Date/Time: Tuesday, February 21, 2017 08:00 - CONCLUSION: 1. Right-sided hydroureter nephrosis even though there is a right-sided nephroureteral stent. 2. Left-sided hydronephrosis and hydroureter with dilatation of the distal left ureter containing soft tissue density/mass and/or debris. 3. There is no mass and debris within the posterior neobladder likely combination of tumor plus hemorrhage. 4. Hiatal hernia, bilateral renal low densities and diverticulosis. Lew Mas MD Abdomen X-Ray 02/21/17 06 Signed Impressions: Service Date/Time: Tuesday, February 21, 2017 06:31 - CONCLUSION: 1. Right sided double-J stent in good position. 2. Benign-appearing abdomen. Sivakumar Bailey MD Objective Remarks GENERAL: This is a well-nourished, well-developed patient, in no apparent distress. CARDIOVASCULAR: Regular rate and rhythm without murmurs, gallops, or rubs. RESPIRATORY: Clear to auscultation. Breath sounds equal bilaterally. No wheezes , rales, or rhonchi. GASTROINTESTINAL: Abdomen soft, non-tender, nondistended. Normal active bowel sounds MUSCULOSKELETAL: Extremities without clubbing, cyanosis, or edema. NEURO: Alert & Oriented x4 to person, place, time, situation. Moves all ext x4 : bright red blood from both nephrostomy tubes and penis A/P Problem List: (1) Hydronephrosis due to obstructive malignant bladder cancer Status: Acute Plan: - comgmt with Urology - Pt admitted with worsening pain and PARAM/CKD, stage 4 secondary to obstructing metastatic urothelial bladder cancer - Pt follows with Dr. Maldonado and had been planned for cystoscopy with possible bilateral stent placement today but pt was in too much pain and proceeded to the ED. - Labs at admission noted an acute worsening of his baseline CKD with Cr 5.59 () - CT Abd/pelvis --> Right-sided hydroureter nephrosis even though there is a right-sided nephroureteral stent. Left-sided hydronephrosis and hydroureter with dilatation of the distal left ureter containing soft tissue density/mass and/or debris. There is no mass and debris within the posterior neobladder likely combination of tumor plus hemorrhage. - - Nephrostomy (Bilateral), Ureteral Stent (left) performed by IR (02/22/17) - Urology has also requested antegrade nephrostogram but IR reports that this cannot be performed until Friday. - Case d/w IR today, and pt wound NOT be a candidate for embolization to control bleeding - case d/w Urology, Dr. Majano. He reassessed pt and agrees with current plan - transfuse 2 units PRBCs - IVF - Monitor labs - Pain control PRN - DVT prophylaxis (2) Acute worsening of stage 4 chronic kidney disease Status: Acute Plan: - See above. 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 Maldonado for Urology and Dr. Machado for Oncology. - Pt is currently on Opdivo (4) HTN (hypertension), benign Status: Chronic Plan: - Home meds continued - Clonidine PRN (5) Hypothyroidism Status: Chronic Plan: - Home meds continued (6) Hyperlipidemia Status: Chronic Dustin Moreno DO February 22, 2017 15:21
--- NOTE | 2017-02-22 16:25 | HHI.PR ---
Subjective Patient symptoms today Patient doing well today. Bilateral nephrostomy tubes in place, draining well with good output, bloody. Patient feels better. Objective Vital Signs Vital Signs Date Time Temp Pulse Resp B/P Pulse Ox O2 Delivery O2 Flow Rate FiO2 02/22/17 13:50 97.7 85 16 131/63 97 02/22/17 13:35 98.2 72 16 137/67 96 02/22/17 13:20 97.8 74 20 139/68 97 02/22/17 13:10 97.7 75 16 125/68 98 02/22/17 12:43 96.9 67 18 123/63 96 02/22/17 09:32 64 02/22/17 08:17 96.5 63 16 145/72 95 02/22/17 04:00 97.7 71 18 128/73 97 02/22/17 00:00 97.5 75 29 158/76 99 02/22/17 00:00 77 02/21/17 20:00 96.5 74 22 176/86 99 Intake & Output 02/22/17 02/22/17 07:00 19:00 Intake Total 60 ml Output Total 1475 ml 850 ml Balance -1415 ml -850 ml Intake Oral 60 ml Output Urine Total 100 ml 200 ml Drainage Total 1375 ml 650 ml Result Diagram: 02/22/1792602/22/17926 Objective Remarks NAD, AAOx3 Resp NL Bilateral nephrostomy tubes with light red output, no clots Medications and IVs Current Medications Medications (Trade) Dose Ordered Sig/Trisha Route Start Time Stop Time Status Last Admin (NS Flush) 2 ml UNSCH PRN IV FLUSH 02/21/17 09:15 (NS Flush) 2 ml BID IV FLUSH 02/21/17 21:00 02/22/17 07:27 (Tylenol) 650 mg Q4H PRN PO 02/21/17 09:15 (Zofran Inj) 4 mg Q6H PRN IVP 02/21/17 09:15 02/22/17 07:25 (Milk Of Magnesia Liq) 30 ml Q12H PRN PO 02/21/17 09:15 (Restoril) 15 mg HS PRN PO 02/21/17 09:15 (Narcan Inj) 0.4 mg UNSCH PRN IV 02/21/17 09:15 ([place] 5-325 Mg) 1 tab Q4H PRN PO 02/21/17 09:15 (Dilaudid Pf Inj) 1 mg Q4H PRN IV PUSH 02/21/17 09:15 02/21/17 14:53 (Norvasc) 10 mg DAILY PO 02/21/17 10:00 02/22/17 07:27 (Proscar) 5 mg DAILY PO 02/21/17 11:00 02/22/17 07:27 (Flomax) 0.4 mg HS PO 02/21/17 21:00 02/21/17 21:24 (Catapres) 0.1 mg Q6H PRN PO 02/21/17 10:00 02/21/17 22:50 Levothyroxine Sodium 125 mcg 125 mcg DAILY@06 PO 02/22/17 06:00 02/22/17 06:14 (NS 250 ml Inj) 250 ml @ 15 mls/hr ONCE ONCE IV 02/22/17 10:30 02/23/17 03:09 02/22/17 12:45 Assessment and Plan Problem List: (1) Hydronephrosis of right kidney ICD Code: N13.30 Status: Acute (2) Acute worsening of stage 4 chronic kidney disease ICD Code: N28.9 Status: Acute Assessment and Plan 82yo male with metastatic urothelial carcinoma of the bladder -Bilateral nephrostomy tubes place, draining well. -Patient appears comfortable -Cr slightly improved today -Hgb dropped. Prior normal Hgb may be secondary to dehydration with subsequent drop with hydration after nephrostomy tube placement -Patient receiving 2 units of PRBC today -Anemia source highly unlikely due to bilateral nephrostomy tubes or from his bladder tumor -Continue to improve Rick Majano MD February 22, 2017 16:25
[2017-02-22] MEDS: TAMSULOSIN HCL 0.4 MG CAP PO SCH (22:02)
[2017-02-23] VITALS (7 sets, daily range): BP systolic 126–169; BP diastolic 64–79; PULSE 67–79; RESP 18–24; TEMP 97–98.8; O2SAT 94–98
[2017-02-23] MEDS: LEVOTHYROXINE SODIUM 125 MCG TAB PO SCH (06:02)
[2017-02-23] MEDS: SODIUM CHLORIDE 0.9% FLUSH 10 ML FLUSH IV FLUSH SCH ×2 (09:00→21:10)
[2017-02-23] MEDS: FINASTERIDE 5 MG TAB PO SCH (09:09)
[2017-02-23] MEDS: ONDANSETRON HCL 4 MG/2 ML VIAL IVP PRN ×2 (09:09→14:57)
--- NOTE | 2017-02-23 12:45 | HHI.PR ---
Subjective Remarks No c/o pain today. Pt c/o continuing to pass clots from his penis. Objective Vitals Vital Signs Date Time Temp Pulse Resp B/P Pulse Ox O2 Delivery O2 Flow Rate FiO2 02/23/17 12:41 97.5 79 18 135/72 94 02/23/17 08:50 97.0 67 18 151/79 97 02/23/17 04:00 97.8 68 20 149/77 95 02/23/17 00:00 98.8 70 18 132/70 98 02/22/17 20:00 98.2 72 20 149/73 96 02/22/17 20:00 69 02/22/17 17:05 97.9 71 16 157/73 96 02/22/17 16:53 98.0 65 18 141/74 97 02/22/17 16:50 97.9 71 16 152/72 97 02/22/17 16:45 97.6 70 16 150/72 96 02/22/17 13:50 97.7 85 16 131/63 97 02/22/17 13:35 98.2 72 16 137/67 96 02/22/17 13:20 97.8 74 20 139/68 97 02/22/17 13:10 97.7 75 16 125/68 98 02/22/17 02/22/17 02/23/17 15:00 23:00 07:00 Intake Total 240 ml Output Total 650 ml 2675 ml 750 ml Balance -410 ml -2675 ml -750 ml Intake Oral 240 ml Output Urine Total 300 ml 100 ml Drainage Total 650 ml 2375 ml 650 ml # Voids 1 Result Diagram: 02/22/1792602/22/17926 Imaging Last Impressions Abdomen/Pelvis CT 02/21/17 0643 Signed Impressions: Service Date/Time: Tuesday, February 21, 2017 08:00 - CONCLUSION: 1. Right-sided hydroureter nephrosis even though there is a right-sided nephroureteral stent. 2. Left-sided hydronephrosis and hydroureter with dilatation of the distal left ureter containing soft tissue density/mass and/or debris. 3. There is no mass and debris within the posterior neobladder likely combination of tumor plus hemorrhage. 4. Hiatal hernia, bilateral renal low densities and diverticulosis. Lew Mas MD Abdomen X-Ray 02/21/17 06 Signed Impressions: Service Date/Time: Tuesday, February 21, 2017 06:31 - CONCLUSION: 1. Right sided double-J stent in good position. 2. Benign-appearing abdomen. Sivakumar Bailey MD Objective Remarks GENERAL: This is a well-nourished, well-developed patient, in no apparent distress. CARDIOVASCULAR: Regular rate and rhythm without murmurs, gallops, or rubs. RESPIRATORY: Clear to auscultation. Breath sounds equal bilaterally. No wheezes , rales, or rhonchi. GASTROINTESTINAL: Abdomen soft, non-tender, nondistended. Normal active bowel sounds MUSCULOSKELETAL: Extremities without clubbing, cyanosis, or edema. NEURO: Alert & Oriented x4 to person, place, time, situation. Moves all ext x4 : bright red blood from both nephrostomy tubes and penis Left nephrostomy tube --> drainage of 1625ml, sanguinous right nephrostomy tube --> drainage of 225ml, sanguinous A/P Problem List: (1) Hydronephrosis due to obstructive malignant bladder cancer Status: Acute Plan: - comgmt with Urology - Pt admitted with worsening pain and PARAM/CKD, stage 4 secondary to obstructing metastatic urothelial bladder cancer - Pt follows with Dr. Maldonado and had been planned for cystoscopy with possible bilateral stent placement today but pt was in too much pain and proceeded to the ED. - Labs at admission noted an acute worsening of his baseline CKD with Cr 5.59 () - CT Abd/pelvis --> Right-sided hydroureter nephrosis even though there is a right-sided nephroureteral stent. Left-sided hydronephrosis and hydroureter with dilatation of the distal left ureter containing soft tissue density/mass and/or debris. There is no mass and debris within the posterior neobladder likely combination of tumor plus hemorrhage. - - Nephrostomy (Bilateral), Ureteral Stent (left) performed by IR (02/22/17) - Urology has also requested antegrade nephrostogram but IR reports that this cannot be performed until Friday. - Case d/w IR today, and pt wound NOT be a candidate for embolization to control bleeding - case d/w Urology, Dr. Majano (02/22/17). He reassessed pt and agrees with current plan - Pt transfused 2 units PRBCs - awaiting repeat CBC, BMP - IVF - Monitor labs - Pain control PRN - DVT prophylaxis - Pt/ requesting second Urology opinion RE: current treatment options. (2) Acute worsening of stage 4 chronic kidney disease Status: Acute Plan: - See above. 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 Maldonado for Urology and Dr. Machado for Oncology. - Pt is currently on Opdivo (4) HTN (hypertension), benign Status: Chronic Plan: - Home meds continued - Clonidine PRN (5) Hypothyroidism Status: Chronic Plan: - Home meds continued (6) Hyperlipidemia Status: Chronic Problem Qualifiers (1) Hyperlipidemia: Qualified Code: E78.5 - Hyperlipidemia, unspecified hyperlipidemia type Dustin Moreno DO February 23, 2017 12:45
[2017-02-23 13:55] LABS: AUTOMATED NEUTROPHIL # 5.9 TH/MM3 (1.8-7.7); BASOPHIL % 0.4 % (0.0-2.0); EOSINOPHIL # 0.1 TH/MM3 (0-0.4); EOSINOPHIL % 0.8 % (0.0-4.0); HEMATOCRIT 27.1 % (39.0-51.0); LYMPH % 10.2 % (9.0-44.0); LYMPHOCYTE # 0.7 TH/MM3 (1.0-4.8); MEAN CELL VOLUME 87.1 FL (80.0-100.0); MEAN CORPUSCULAR HGB CONC 34.5 % (32.0-36.0); MONO % 7.1 % (0.0-8.0); NEUT % 81.5 % (16.0-70.0); PLATELET COUNT 146 TH/MM3 (150-450); RED BLOOD COUNT 3.12 MIL/MM3 (4.50-5.90); RED CELL DISTRIBUTION WIDTH 15.3 % (11.6-17.2); WHITE BLOOD COUNT 7.2 TH/MM3 (4.0-11.0)
[2017-02-23 13:59] LABS: HEMO FLAGS AUTO DIFF
[2017-02-23 14:29] LABS: BANDS 5 % (0-6); BASOPHILS 1 % (0-2); EOSINOPHILS 1 % (0-4); METAMYELOCYTES 1 % (0-1); MYELOCYTES 1 % (0-0); NEUTROPHIL # MANUAL DIFF 5.5 TH/MM3 (1.8-7.7); PLATELET ESTIMATE SMEAR LOW (NORMAL); PLATELET MORPHOLOGY NORMAL (NORMAL); POLYS (SEG NEUTROPHILS) 69 % (16-70); SCAN/DIFF FINAL DIFF MANUAL; WBC DIFF SAMPLE 100
[2017-02-23 14:33] LABS: BICARBONATE 25.8 MEQ/L (21.0-32.0); POTASSIUM 4.1 MEQ/L (3.5-5.1)
[2017-02-23] MEDS: TAMSULOSIN HCL 0.4 MG CAP PO SCH (21:10)
[2017-02-23] MEDS: TEMAZEPAM 15 MG CAP PO PRN (21:10)
[2017-02-24] VITALS (11 sets, daily range): BP systolic 131–160; BP diastolic 70–82; PULSE 66–80; RESP 17–22; TEMP 96.9–97.9; O2SAT 94–100
[2017-02-24] MEDS: LEVOTHYROXINE SODIUM 125 MCG TAB PO SCH (06:36)
[2017-02-24 06:53] LABS: AUTOMATED NEUTROPHIL # 4.5 TH/MM3 (1.8-7.7); BASOPHIL % 0.6 % (0.0-2.0); EOSINOPHIL # 0.1 TH/MM3 (0-0.4); EOSINOPHIL % 2.1 % (0.0-4.0); HEMATOCRIT 25.3 % (39.0-51.0); LYMPH % 11.6 % (9.0-44.0); LYMPHOCYTE # 0.7 TH/MM3 (1.0-4.8); MEAN CELL VOLUME 87.9 FL (80.0-100.0); MEAN CORPUSCULAR HEMOGLOBIN 29.8 PG (27.0-34.0); MONO % 11.6 % (0.0-8.0); NEUT % 74.1 % (16.0-70.0); PLATELET COUNT 148 TH/MM3 (150-450); RED BLOOD COUNT 2.88 MIL/MM3 (4.50-5.90); RED CELL DISTRIBUTION WIDTH 15.5 % (11.6-17.2); WHITE BLOOD COUNT 6.1 TH/MM3 (4.0-11.0)
[2017-02-24 06:58] LABS: HEMO FLAGS AUTO DIFF
[2017-02-24 07:26] LABS: BICARBONATE 26.3 MEQ/L (21.0-32.0); MAGNESIUM 2.2 MG/DL (1.5-2.5); POTASSIUM 3.6 MEQ/L (3.5-5.1)
[2017-02-24 07:45] LABS: BANDS 2 % (0-6); BASOPHILS 1 % (0-2); EOSINOPHILS 2 % (0-4); METAMYELOCYTES 2 % (0-1); MYELOCYTES 2 % (0-0); NEUTROPHIL # MANUAL DIFF 5.1 TH/MM3 (1.8-7.7); POLYS (SEG NEUTROPHILS) 77 % (16-70); WBC DIFF SAMPLE 100
[2017-02-24 07:46] LABS: PLATELET ESTIMATE SMEAR LOW (NORMAL); PLATELET MORPHOLOGY NORMAL (NORMAL); SCAN/DIFF FINAL DIFF MANUAL
[2017-02-24] MEDS: SODIUM CHLORIDE 0.9% FLUSH 10 ML FLUSH IV FLUSH SCH ×2 (08:07→22:05)
[2017-02-24] MEDS: FINASTERIDE 5 MG TAB PO SCH (08:07)
--- NOTE | 2017-02-24 10:49 | HHI.PR ---
Subjective Remarks Pt still having bloody drainage from left nephrostomy Right nephrostomy with clear urine draining. Pt complains of some dizziness when standing up today He is also having some nausea. Denies any abd pain. Objective Vitals Vital Signs Date Time Temp Pulse Resp B/P Pulse Ox O2 Delivery O2 Flow Rate FiO2 02/24/17 08:25 97.2 80 18 151/80 96 02/24/17 04:00 97.8 70 22 131/71 94 02/24/17 00:00 97.9 77 18 132/78 94 02/23/17 20:00 75 02/23/17 20:00 97.5 75 24 148/77 94 02/23/17 16:18 97.2 77 18 169/73 96 02/23/17 12:41 97.5 79 18 135/72 94 02/23/17 02/23/17 02/24/17 15:00 23:00 07:00 Output Total 200 ml 1325 ml 650 ml Balance -200 ml -1325 ml -650 ml Output Urine Total 200 ml 300 ml Drainage Total 1325 ml 350 ml Result Diagram: 02/24/17 0537 02/24/17 0537 Other Results Laboratory Tests Test 02/22/17 02/23/17 02/24/17 11:19 13:22 05:37 Blood Type A POSITIVE Antibody Screen NEGATIVE Crossmatch Leukocyte-Reduced Red Blood Cells Blood Bank Comment White Blood Count 7.2 TH/MM3 6.1 TH/MM3 Red Blood Count 3.12 MIL/MM3 2.88 MIL/MM3 Hemoglobin 9.3 GM/DL 8.6 GM/DL Hematocrit 27.1 % 25.3 % Mean Corpuscular Volume 87.1 FL 87.9 FL Mean Corpuscular Hemoglobin 30.0 PG 29.8 PG Mean Corpuscular Hemoglobin 34.5 % 34.0 % Concent Red Cell Distribution Width 15.3 % 15.5 % Platelet Count 146 TH/MM3 148 TH/MM3 Mean Platelet Volume 6.5 FL 6.4 FL Neutrophils (%) (Auto) 81.5 % 74.1 % Lymphocytes (%) (Auto) 10.2 % 11.6 % Monocytes (%) (Auto) 7.1 % 11.6 % Eosinophils (%) (Auto) 0.8 % 2.1 % Basophils (%) (Auto) 0.4 % 0.6 % Neutrophils # (Auto) 5.9 TH/MM3 4.5 TH/MM3 Lymphocytes # (Auto) 0.7 TH/MM3 0.7 TH/MM3 Monocytes # (Auto) 0.5 TH/MM3 0.7 TH/MM3 Eosinophils # (Auto) 0.1 TH/MM3 0.1 TH/MM3 Basophils # (Auto) 0.0 TH/MM3 0.0 TH/MM3 CBC Comment AUTO DIFF AUTO DIFF Differential Total Cells 100 100 Counted Neutrophils % (Manual) 69 % 77 % Band Neutrophils % 5 % 2 % Lymphocytes % 16 % 8 % Monocytes % 6 % 6 % Eosinophils % 1 % 2 % Basophils % 1 % 1 % Neutrophils # (Manual) 5.5 TH/MM3 5.1 TH/MM3 Metamyelocytes 1 % 2 % Myelocytes 1 % 2 % Differential Comment FINAL DIFF FINAL DIFF MANUAL MANUAL Platelet Estimate LOW LOW Platelet Morphology Comment NORMAL NORMAL Sodium Level 140 MEQ/L 140 MEQ/L Potassium Level 4.1 MEQ/L 3.6 MEQ/L Chloride Level 103 MEQ/L 104 MEQ/L Carbon Dioxide Level 25.8 MEQ/L 26.3 MEQ/L Anion Gap 11 MEQ/L 10 MEQ/L Blood Urea Nitrogen 66 MG/DL 57 MG/DL Creatinine 3.83 MG/DL 3.37 MG/DL Estimat Glomerular Filtration 15 ML/MIN 18 ML/MIN Rate Random Glucose 110 MG/DL 108 MG/DL Calcium Level 8.9 MG/DL 8.9 MG/DL Red Cell Morphology Comment NORMAL Magnesium Level 2.2 MG/DL Imaging Last Impressions Abdomen/Pelvis CT 02/21/17 0643 Signed Impressions: Service Date/Time: Tuesday, February 21, 2017 08:00 - CONCLUSION: 1. Right-sided hydroureter nephrosis even though there is a right-sided nephroureteral stent. 2. Left-sided hydronephrosis and hydroureter with dilatation of the distal left ureter containing soft tissue density/mass and/or debris. 3. There is no mass and debris within the posterior neobladder likely combination of tumor plus hemorrhage. 4. Hiatal hernia, bilateral renal low densities and diverticulosis. Lew Mas MD Abdomen X-Ray 02/21/17 0622 Signed Impressions: Service Date/Time: Tuesday, February 21, 2017 06:31 - CONCLUSION: 1. Right sided double-J stent in good position. 2. Benign-appearing abdomen. Sivakumar J. [place]ag[place], MD Objective Remarks General: NAD, AAOx3 Chest: CTA Cardiac: Regular Abd: +BS, soft ND/NT : bright red blood from left nephrostomy tube and penis Left nephrostomy tube --> sanguinous Right nephrostomy tube --> clear urine A/P Problem List: (1) Hydronephrosis due to obstructive malignant bladder cancer Status: Acute Plan: - comgmt with Urology - Pt admitted with worsening pain and PARAM/CKD, stage 4 secondary to obstructing metastatic urothelial bladder cancer - Pt follows with Dr. Maldonado and had been planned for cystoscopy with possible bilateral stent placement today but pt was in too much pain and proceeded to the ED. - Labs at admission noted an acute worsening of his baseline CKD with Cr 5.59 () - CT Abd/pelvis --> Right-sided hydroureter nephrosis even though there is a right-sided nephroureteral stent. Left-sided hydronephrosis and hydroureter with dilatation of the distal left ureter containing soft tissue density/mass and/or debris. There is no mass and debris within the posterior neobladder likely combination of tumor plus hemorrhage. - Nephrostomy (Bilateral), Ureteral Stent (left) performed by IR (02/22/17) - Urology has also requested antegrade nephrostogram and this will be performed by IR today. - Case d/w IR on 02/23 and pt wound NOT be a candidate for embolization to control bleeding - Pt continues to have bloody drainage from left Nephrostomy tube. - Pt required transfusion with 2 units PRBCs on 02/22 - H/H relatively stable. - Monitor CBC, BMP - IVF - Monitor labs - Pain control PRN - DVT prophylaxis (2) Acute worsening of stage 4 chronic kidney disease Status: Acute Plan: - See above. 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 Maldonado for Urology and Dr. Machado for Oncology. - Pt is currently on Opdivo (4) HTN (hypertension), benign Status: Chronic Plan: - Home meds continued - Clonidine PRN (5) Hypothyroidism Status: Chronic Plan: - Home meds continued (6) Hyperlipidemia Status: Chronic Assessment and Plan Patient examined. Assessment and plan formulated with Jessenia Ramsey PA-C. I agree with the above. bladder ca with obstruction. IR placed pcn tubes and now working on pcnu monitor h/h Problem Qualifiers (1) Hyperlipidemia: Qualified Code: E78.5 - Hyperlipidemia, unspecified hyperlipidemia type Jessenia Ramsey February 24, 2017 10:49 Buck Rey MD February 24, 2017 14:06
[2017-02-24] MEDS ORDERED: LEVOFLOXACIN 500 MG PREMIX INJ 100 ML IV ONE (13:49)
[2017-02-24] MEDS ORDERED: fentaNYL CITRATE 250 MCG/5 ML AMP ONE (13:49)
[2017-02-24] MEDS ORDERED: MIDAZOLAM HCL 5 MG/5 ML VIAL ONE (13:49)
--- NOTE | 2017-02-24 15:06 | PD.RAD ---
Post Procedure Progress Note Pre Procedure Diagnosis: (1) Metastatic urothelial carcinoma (2) Hydronephrosis due to obstructive malignant bladder cancer Post Procedure Diagnosis: (1) Hydronephrosis of right kidney (2) Hydronephrosis due to obstructive malignant bladder cancer (3) Metastatic urothelial carcinoma Procedure Date: February 24, 2017 Supervising Radiologist: Gino Pettit Estimated blood loss: 5cc Plan of Activity Patient to Unit: Nursing Unit Patient Condition: Fair Additional Comments: right nephrostomy tube exchange for a new 10 serbian nephroureteral stent. the old right ureteral stent removed See PACS Report for procedural detail/treatment Gino Pettit MD February 24, 2017 15:06
[2017-02-24] MEDS ORDERED: IOHEXOL 350 MG/ML 100 ML BTL (for RAD DIAG) OTHER ONE (15:30)
--- NOTE | 2017-02-24 16:09 | RADRPT ---
EXAM DATE/TIME: 02/24/2017 14:42 [facility] COMPARISON: URETERAL STENT INTERNAL, REMOVAL, PERC, RIGHT, February 24, 2017, 0:00. INDICATIONS : Patient with history of right ureteral stricture in need of removal of internalized nephrouerteral tu be and placement of a nephroureteral tube. MEDICAL HISTORY : History of metastatic urothelial bladder cancer, hydronephrosis, chronic DVT,PE, HTN, hyperlipidemia, DM, hypothyroidism, chronic anemia, cataracts. SURGICAL HISTORY : Bilateral ureteral stent placement, cystoscopy, bilateral catarct removal, hernia repair, varicose vein ligation, strabismus repair. ENCOUNTER: Subsequent ACUITY: >1 year PAIN SCORE: 0/10 FLUORO TIME: 23.8 minutes IMAGE SERIES: SEDATION TIME: 60 minutes CONTRAST: 25 cc Omnipaque (iohexol) 350 MEDICATION(S): 1.) 5 mg midazolam (Versed) IV 2.) 250 mcg fentanyl (Sublimaze) IV DEVICE(S): 1.) 10 M[place] x 24cm nephroureteral stent PROCEDURE : 1. Antegrade percutaneous pyelogram. 2. Nephroureteral catheter exchange. 4. Conscious sedation with continuous EKG and oximetry monitoring. The risks, benefits and alternatives to the procedure were explained and verbal and written consent w as obtained. The site was prepped in sterile fashion. Full sterile technique was used, including ca p, mask, sterile gloves and gown and a large sterile sheet. Hand hygiene and 2% chlorhexidine and/or betadine/alcohol prep was utilized per protocol for cutaneous antisepsis. The skin and subcutaneous tissues were infiltrated with local anesthetic solution. The existing nephrostomy tube was accessed with a 0.035 angle Glidewire. This was advanced down to th e bladder. A 5 [place] sheath was advanced over the wire. A second 0.035 Glidewire was advanced into t he collecting system. 10 [place] sheath was advanced over this wire. A 15 mm snare was advanced into the collecting system. Eventually, the tip of the ureteral stent was snared. The stent was pulled through the 10 [place] sheath without difficulty. A 24 centimeter nephroureteral stent was advanced over the second guidewire position without difficul ty. The new catheter is in excellent position. Conscious sedation was performed with the prescribed dosages and duration as above in the presence of an independent trained radiology nurse to assist in the monitoring of the patient. EKG and oximetry remained stable throughout the procedure. The patient tolerated the procedure well and there were n o complications. The patient was sent to post anesthesia recovery in stable condition. CONCLUSION: Successful removal of the patient's existing ureteral stent. A new 10 [place] nephroureteral stent was placed.. Gino Pettit MD on February 24, 2017 at 16:05 Board Certified Radiologist. This report was verified electronically.
[2017-02-24] MEDS: TEMAZEPAM 15 MG CAP PO PRN (22:04)
[2017-02-24] MEDS: TAMSULOSIN HCL 0.4 MG CAP PO SCH (22:04)
[2017-02-24] MEDS: HYDROmorphone HCL PF 1 MG/ML VIAL IV PUSH PRN (22:05)
[2017-02-24] MEDS: ONDANSETRON HCL 4 MG/2 ML VIAL IVP PRN (22:11)
[2017-02-25] VITALS (8 sets, daily range): BP systolic 134–166; BP diastolic 65–79; PULSE 62–90; RESP 18–22; TEMP 95.6–99.2; O2SAT 94–98
[2017-02-25] MEDS: ONDANSETRON HCL 4 MG/2 ML VIAL IVP PRN (04:44)
[2017-02-25] MEDS: LEVOTHYROXINE SODIUM 125 MCG TAB PO SCH (05:28)
[2017-02-25] MEDS ORDERED: MECLIZINE HCL 25 MG TAB PO SCH (05:30)
[2017-02-25 07:04] LABS: AUTOMATED NEUTROPHIL # 6.2 TH/MM3 (1.8-7.7); BASOPHIL % 0.4 % (0.0-2.0); EOSINOPHIL % 0.3 % (0.0-4.0); HEMATOCRIT 26.1 % (39.0-51.0); HEMO FLAGS DIFF FINAL; LYMPH % 8.7 % (9.0-44.0); LYMPHOCYTE # 0.6 TH/MM3 (1.0-4.8); MEAN CELL VOLUME 87.6 FL (80.0-100.0); MEAN CORPUSCULAR HEMOGLOBIN 30.2 PG (27.0-34.0); MEAN CORPUSCULAR HGB CONC 34.5 % (32.0-36.0); MONO % 6.6 % (0.0-8.0); PLATELET COUNT 157 TH/MM3 (150-450); RED BLOOD COUNT 2.98 MIL/MM3 (4.50-5.90); RED CELL DISTRIBUTION WIDTH 15.1 % (11.6-17.2); WHITE BLOOD COUNT 7.4 TH/MM3 (4.0-11.0)
[2017-02-25 07:54] LABS: BICARBONATE 26.3 MEQ/L (21.0-32.0); POTASSIUM 3.9 MEQ/L (3.5-5.1)
[2017-02-25] MEDS: FINASTERIDE 5 MG TAB PO SCH (08:30)
[2017-02-25] MEDS: SODIUM CHLORIDE 0.9% FLUSH 10 ML FLUSH IV FLUSH SCH ×2 (08:30→21:00)
[2017-02-25] MEDS ORDERED: ONDANSETRON HCL 4 MG/2 ML VIAL IVP PRN (11:30)
[2017-02-25] MEDS ORDERED: ONDANSETRON HCL 4 MG/2 ML VIAL IV PUSH ONE (11:30)
--- NOTE | 2017-02-25 11:31 | HHI.PR ---
Subjective Remarks vertigo/nausea. unable to eat some blood clots in urine family insisting on urology visit or second opinion Objective Vitals heart reg lung clear abd s/nt ext no edema nephostomy tubes. clear urine. Vital Signs Date Time Temp Pulse Resp B/P Pulse Ox O2 Delivery O2 Flow Rate FiO2 02/25/17 08:52 97.7 76 18 166/79 98 02/25/17 08:07 79 02/25/17 04:00 96.8 62 20 140/65 97 02/25/17 00:06 97.4 63 22 152/74 94 02/24/17 20:33 96.9 75 18 160/70 96 02/24/17 17:17 97.0 74 17 142/75 100 02/24/17 16:35 66 18 159/72 94 02/24/17 16:05 69 18 153/82 95 02/24/17 15:35 67 18 141/77 94 02/24/17 15:20 97.6 70 18 143/78 95 02/24/17 14:37 73 02/24/17 11:53 97.2 77 18 150/78 98 02/24/17 02/24/17 02/25/17 15:00 23:00 07:00 Intake Total 240 ml Output Total 385 ml 375 ml Balance -385 ml -375 ml 240 ml Intake Oral 240 ml Drainage Total 385 ml 375 ml Result Diagram: 02/25/17 0609 02/25/17 0609 Imaging Last Impressions Abdomen/Pelvis CT 02/21/17 0643 Signed Impressions: Service Date/Time: Tuesday, February 21, 2017 08:00 - CONCLUSION: 1. Right-sided hydroureter nephrosis even though there is a right-sided nephroureteral stent. 2. Left-sided hydronephrosis and hydroureter with dilatation of the distal left ureter containing soft tissue density/mass and/or debris. 3. There is no mass and debris within the posterior neobladder likely combination of tumor plus hemorrhage. 4. Hiatal hernia, bilateral renal low densities and diverticulosis. Lew Mas MD Abdomen X-Ray 02/21/17 0622 Signed Impressions: Service Date/Time: Tuesday, February 21, 2017 06:31 - CONCLUSION: 1. Right sided double-J stent in good position. 2. Benign-appearing abdomen. Sivakumar Bailey MD A/P Problem List: (1) Hydronephrosis due to obstructive malignant bladder cancer Status: Acute Plan: - Pt admitted with worsening pain and PARAM/CKD, stage 4 secondary to obstructing metastatic urothelial bladder cancer - Pt follows with Dr. Maldonado and had been planned for cystoscopy with possible bilateral stent placement but pt was in too much pain and proceeded to the ED. - Labs at admission noted an acute worsening of his baseline CKD with Cr 5.59 () - CT Abd/pelvis --> Right-sided hydroureter nephrosis even though there is a right-sided nephroureteral stent. Left-sided hydronephrosis and hydroureter with dilatation of the distal left ureter containing soft tissue density/mass and/or debris. There is no mass and debris within the posterior neobladder likely combination of tumor plus hemorrhage. - Nephrostomy (Bilateral), Ureteral Stent (left) performed by IR (02/22/17). right ureter stent exchange by IR on 02/24 -- Case d/w IR on 02/23 and pt wound NOT be a candidate for embolization to control bleeding - Pt required transfusion with 2 units PRBCs on 02/22 - resume ivf and meclizine/antiemetics/liquid diet as he is vertiginous and having n/v Pt and very anxious and insist to see the Urologist covering for dr Maldonado or get a second opinion. They feel a cystoscopy is warranted and had been planned by Dr Maldonado. (2) Acute worsening of stage 4 chronic kidney disease Status: Acute Plan: - See above. 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 Maldonado for Urology and Dr. Machado for Oncology. - Pt is currently on Opdivo (4) HTN (hypertension), benign Status: Chronic Plan: - Home meds continued - Clonidine PRN (5) Hypothyroidism Status: Chronic Plan: - Home meds continued (6) Hyperlipidemia Status: Chronic Problem Qualifiers (1) Hyperlipidemia: Qualified Code: E78.5 - Hyperlipidemia, unspecified hyperlipidemia type Buck Rey MD February 25, 2017 11:31
[2017-02-25] MEDS: SODIUM CHLOR 0.9% 1000 ML INJ 1,000 ML IV SCH ×2 (11:54→23:23)
[2017-02-25] MEDS: MECLIZINE HCL 25 MG TAB PO SCH ×3 (11:54→23:23)
[2017-02-25] MEDS: TEMAZEPAM 15 MG CAP PO PRN (21:32)
[2017-02-25] MEDS: TAMSULOSIN HCL 0.4 MG CAP PO SCH (21:32)
[2017-02-26] VITALS (7 sets, daily range): BP systolic 118–147; BP diastolic 56–70; PULSE 71–83; RESP 18–20; TEMP 97–98.6; O2SAT 94–99
[2017-02-26] MEDS: MECLIZINE HCL 25 MG TAB PO SCH ×4 (06:23→23:06)
[2017-02-26] MEDS: LEVOTHYROXINE SODIUM 125 MCG TAB PO SCH (06:23)
[2017-02-26 08:00] LABS: BICARBONATE 26.3 MEQ/L (21.0-32.0); POTASSIUM 3.6 MEQ/L (3.5-5.1)
[2017-02-26] MEDS: SODIUM CHLORIDE 0.9% FLUSH 10 ML FLUSH IV FLUSH SCH ×2 (08:15→20:44)
[2017-02-26] MEDS: FINASTERIDE 5 MG TAB PO SCH (08:15)
[2017-02-26] MEDS: SODIUM CHLOR 0.9% 1000 ML INJ 1,000 ML IV SCH ×2 (11:30→22:22)
--- NOTE | 2017-02-26 12:24 | HHI.PR ---
Subjective Remarks Pt reports that he is feeling better this morning. No further dizziness Nausea is improving. Objective Vitals Vital Signs Date Time Temp Pulse Resp B/P Pulse Ox O2 Delivery O2 Flow Rate FiO2 02/26/17 08:26 98.3 73 20 118/56 95 02/26/17 08:05 71 02/26/17 04:00 97.2 71 18 147/70 99 02/26/17 00:00 97.7 76 18 135/70 95 02/25/17 20:00 99.2 76 18 164/77 97 02/25/17 19:15 90 02/25/17 16:43 97.6 89 18 134/71 97 02/25/17 02/25/17 02/26/17 15:00 23:00 07:00 Intake Total 1368 ml Output Total 400 ml 500 ml 600 ml Balance -400 ml -500 ml 768 ml Intake Oral 360 ml IV Total 1008 ml Output Urine Total 0 ml Drainage Total 400 ml 500 ml 600 ml # Voids 0 # Bowel Movements 0 0 Result Diagram: 02/25/17 0609 02/26/17 0634 Other Results Laboratory Tests Test 02/25/17 02/26/17 06:09 06:34 White Blood Count 7.4 TH/MM3 Red Blood Count 2.98 MIL/MM3 Hemoglobin 9.0 GM/DL Hematocrit 26.1 % Mean Corpuscular Volume 87.6 FL Mean Corpuscular Hemoglobin 30.2 PG Mean Corpuscular Hemoglobin 34.5 % Concent Red Cell Distribution Width 15.1 % Platelet Count 157 TH/MM3 Mean Platelet Volume 6.2 FL Neutrophils (%) (Auto) 84.0 % Lymphocytes (%) (Auto) 8.7 % Monocytes (%) (Auto) 6.6 % Eosinophils (%) (Auto) 0.3 % Basophils (%) (Auto) 0.4 % Neutrophils # (Auto) 6.2 TH/MM3 Lymphocytes # (Auto) 0.6 TH/MM3 Monocytes # (Auto) 0.5 TH/MM3 Eosinophils # (Auto) 0.0 TH/MM3 Basophils # (Auto) 0.0 TH/MM3 CBC Comment DIFF FINAL Differential Comment Sodium Level 140 MEQ/L 142 MEQ/L Potassium Level 3.9 MEQ/L 3.6 MEQ/L Chloride Level 104 MEQ/L 110 MEQ/L Carbon Dioxide Level 26.3 MEQ/L 26.3 MEQ/L Anion Gap 10 MEQ/L 6 MEQ/L Blood Urea Nitrogen 46 MG/DL 32 MG/DL Creatinine 2.63 MG/DL 2.21 MG/DL Estimat Glomerular Filtration 23 ML/MIN 29 ML/MIN Rate Random Glucose 114 MG/DL 92 MG/DL Calcium Level 8.9 MG/DL 8.5 MG/DL Magnesium Level 2.0 MG/DL Imaging Last Impressions Abdomen/Pelvis CT 02/21/17 0643 Signed Impressions: Service Date/Time: Tuesday, February 21, 2017 08:00 - CONCLUSION: 1. Right-sided hydroureter nephrosis even though there is a right-sided nephroureteral stent. 2. Left-sided hydronephrosis and hydroureter with dilatation of the distal left ureter containing soft tissue density/mass and/or debris. 3. There is no mass and debris within the posterior neobladder likely combination of tumor plus hemorrhage. 4. Hiatal hernia, bilateral renal low densities and diverticulosis. Lew Mas MD Abdomen X-Ray 02/21/17 06 Signed Impressions: Service Date/Time: Tuesday, February 21, 2017 06:31 - CONCLUSION: 1. Right sided double-J stent in good position. 2. Benign-appearing abdomen. Sivakumar Bailey MD Objective Remarks General: NAD, AAOx3 Chest: CTA Cardiac: Regular Abd: +BS, soft NT/ND , Bilateral nephrostomy tubes in place, some bloody drainage on the left side , minimal blood tinged on the right. Ext: No edema A/P Problem List: (1) Hydronephrosis due to obstructive malignant bladder cancer Status: Acute Plan: - comgmt with Urology - Pt admitted with worsening pain and PARAM/CKD, stage 4 secondary to obstructing metastatic urothelial bladder cancer - Pt follows with Dr. Maldonado and had been planned for cystoscopy with possible bilateral stent placement today but pt was in too much pain and proceeded to the ED. - Labs at admission noted an acute worsening of his baseline CKD with Cr 5.59 () - CT Abd/pelvis --> Right-sided hydroureter nephrosis even though there is a right-sided nephroureteral stent. Left-sided hydronephrosis and hydroureter with dilatation of the distal left ureter containing soft tissue density/mass and/or debris. There is no mass and debris within the posterior neobladder likely combination of tumor plus hemorrhage. - Nephrostomy (Bilateral), Ureteral Stent (left) performed by IR (02/22/17) - Pt transfused 2 units PRBCs on 02/22, H/H has remained stable. - Case d/w IR today, and pt wound NOT be a candidate for embolization to control bleeding - On 02/24 pt had anterograde percutaneous pyelogram and Nephroureteral catheter exchange with IR - Await re-evaluation by Urology for further recommendations regarding nephrostomy tubes. Pt and his have several questions regarding this. - IVF - Monitor labs - Pain control PRN - DVT prophylaxis (2) Acute worsening of stage 4 chronic kidney disease Status: Acute Plan: - See above. 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 Maldonado for Urology and Dr. Machado for Oncology. - Pt is currently on Opdivo (4) HTN (hypertension), benign Status: Chronic Plan: - Home meds continued - Clonidine PRN (5) Hypothyroidism Status: Chronic Plan: - Home meds continued (6) Hyperlipidemia Status: Chronic Assessment and Plan Patient examined. Assessment and plan formulated with Jessenia Ramsey PA-C. I agree with the above. pt/family request to talk with Urology..they are confused about the plan moving forward with nephrostomy tubes and if cysto needed. cont ivf. renal function better. advance diet. n/v and vertigo better. Problem Qualifiers (1) Hyperlipidemia: Qualified Code: E78.5 - Hyperlipidemia, unspecified hyperlipidemia type Jessenia Ramsey February 26, 2017 12:18 Buck Rey MD February 26, 2017 12:27
--- NOTE | 2017-02-26 17:17 | HHI.PR ---
Subjective Patient symptoms today Doing well today. Bilateral nephrostomy tubes in place. Objective Vital Signs Vital Signs Date Time Temp Pulse Resp B/P Pulse Ox O2 Delivery O2 Flow Rate FiO2 02/26/17 15:27 98.6 83 20 140/68 95 02/26/17 08:26 98.3 73 20 118/56 95 02/26/17 08:05 71 02/26/17 04:00 97.2 71 18 147/70 99 02/26/17 00:00 97.7 76 18 135/70 95 02/25/17 20:00 99.2 76 18 164/77 97 02/25/17 19:15 90 Intake & Output 02/26/17 02/26/17 07:00 19:00 Intake Total 1368 ml Output Total 775 ml 925 ml Balance 593 ml -925 ml Intake Oral 360 ml IV Total 1008 ml Drainage Total 775 ml 925 ml # Voids 0 # Bowel Movements 0 Result Diagram: 02/25/17 0609 02/26/17 0634 Objective Remarks NAD, AAOx3 Resp NL Bilateral nephrostomy tubes with light red output, no clots Medications and IVs Current Medications Medications (Trade) Dose Ordered Sig/Trisha Route Start Time Stop Time Status Last Admin (NS Flush) 2 ml UNSCH PRN IV FLUSH 02/21/17 09:15 02/24/17 22:11 (NS Flush) 2 ml BID IV FLUSH 02/21/17 21:00 02/26/17 08:15 (Tylenol) 650 mg Q4H PRN PO 02/21/17 09:15 (Milk Of Magnesia Liq) 30 ml Q12H PRN PO 02/21/17 09:15 (Restoril) 15 mg HS PRN PO 02/21/17 09:15 02/25/17 21:32 (Narcan Inj) 0.4 mg UNSCH PRN IV 02/21/17 09:15 (Wilber 5-325 Mg) 1 tab Q4H PRN PO 02/21/17 09:15 (Dilaudid Pf Inj) 1 mg Q4H PRN IV PUSH 02/21/17 09:15 02/24/17 22:05 (Norvasc) 10 mg DAILY PO 02/21/17 10:00 02/26/17 08:15 (Proscar) 5 mg DAILY PO 02/21/17 11:00 02/26/17 08:15 (Flomax) 0.4 mg HS PO 02/21/17 21:00 02/25/17 21:32 (Catapres) 0.1 mg Q6H PRN PO 02/21/17 10:00 02/21/17 22:50 Levothyroxine Sodium 125 mcg 125 mcg DAILY@06 PO 02/22/17 06:00 02/26/17 06:23 (NS 1000 ml Inj) 1,000 ml @ 84 mls/hr [id number] IV 02/25/17 11:30 02/26/17 11:30 (Antivert) 25 mg Q6HR PO 02/25/17 12:00 02/26/17 11:30 (Zofran Inj) 4 mg Q4H PRN IVP 02/25/17 11:30 Assessment and Plan Problem List: (1) Hydronephrosis of right kidney ICD Code: N13.30 Status: Acute (2) Acute worsening of stage 4 chronic kidney disease ICD Code: N28.9 Status: Acute Assessment and Plan -Discussed plan with patient and family -Maintain bilateral tubes in place -Follow-up in clinic in 1 week -If patient doing well at that time, the nephrostomy tubes may be exchanged to indwelling ureteral stents -He is to continue with his cancer care with Dr. Machado. No need to delay any treatments due to the nephrostomy tubes as they are draining his kidneys well -Follow-up in clinic in 1 week -Patient clear for discharge from Urology standpoint -Please call with questions Rick Majano MD February 26, 2017 17:17
[2017-02-26] MEDS: HYDROmorphone HCL PF 1 MG/ML VIAL IV PUSH PRN (17:36)
[2017-02-26] MEDS: TAMSULOSIN HCL 0.4 MG CAP PO SCH (20:44)
[2017-02-26] MEDS: TEMAZEPAM 15 MG CAP PO PRN (22:21)
[2017-02-27] VITALS (10 sets, daily range): BP systolic 119–150; BP diastolic 57–75; PULSE 77–90; RESP 16–18; TEMP 95.8–99.2; O2SAT 94–97
[2017-02-27] MEDS: MECLIZINE HCL 25 MG TAB PO SCH ×4 (05:16→23:09)
[2017-02-27] MEDS: LEVOTHYROXINE SODIUM 125 MCG TAB PO SCH (05:16)
[2017-02-27] MEDS: FINASTERIDE 5 MG TAB PO SCH (08:33)
[2017-02-27 08:54] LABS: AUTOMATED NEUTROPHIL # 5.5 TH/MM3 (1.8-7.7); BASOPHIL % 0.5 % (0.0-2.0); EOSINOPHIL # 0.3 TH/MM3 (0-0.4); EOSINOPHIL % 3.4 % (0.0-4.0); HEMO FLAGS DIFF FINAL; LYMPH % 11.7 % (9.0-44.0); LYMPHOCYTE # 0.9 TH/MM3 (1.0-4.8); MEAN CELL VOLUME 89.2 FL (80.0-100.0); MEAN CORPUSCULAR HEMOGLOBIN 29.9 PG (27.0-34.0); MEAN CORPUSCULAR HGB CONC 33.6 % (32.0-36.0); MONO % 9.8 % (0.0-8.0); NEUT % 74.6 % (16.0-70.0); PLATELET COUNT 186 TH/MM3 (150-450); RED BLOOD COUNT 2.58 MIL/MM3 (4.50-5.90); RED CELL DISTRIBUTION WIDTH 15.2 % (11.6-17.2); WHITE BLOOD COUNT 7.3 TH/MM3 (4.0-11.0)
[2017-02-27 09:53] LABS: BICARBONATE 23.4 MEQ/L (21.0-32.0); MAGNESIUM 1.7 MG/DL (1.5-2.5); POTASSIUM 3.5 MEQ/L (3.5-5.1)
[2017-02-27] MEDS: SODIUM CHLOR 0.9% 1000 ML INJ 1,000 ML IV SCH (10:58)
[2017-02-27] MEDS ORDERED: POTASSIUM CHLORIDE 20 MEQ CONTROLLED RELEASE TAB PO ONE (11:30)
[2017-02-27] MEDS: SODIUM CHLORIDE 0.9% FLUSH 10 ML FLUSH IV FLUSH SCH (20:49)
[2017-02-27] MEDS: TAMSULOSIN HCL 0.4 MG CAP PO SCH (20:49)
--- NOTE | 2017-02-27 20:55 | HHI.PR ---
Subjective Remarks more comfortable. Objective Vitals heart reg lung cta abd s/nt ext no edema bilateral nephrostomy tubes. Vital Signs Date Time Temp Pulse Resp B/P Pulse Ox O2 Delivery O2 Flow Rate FiO2 02/27/17 20:43 98.1 88 18 150/75 96 02/27/17 20:18 97.5 88 16 150/70 96 02/27/17 16:00 98.7 88 18 139/70 97 02/27/17 11:51 98.1 87 18 131/60 97 02/27/17 08:22 79 02/27/17 08:00 98.0 77 18 138/72 95 02/27/17 04:00 99.2 81 18 127/61 95 02/27/17 00:00 95.8 79 18 119/57 94 02/26/17 02/26/17 02/27/17 15:00 23:00 07:00 Intake Total 2555 ml 1128 ml Output Total 425 ml 900 ml 750 ml Balance -425 ml 1655 ml 378 ml Intake Oral 120 ml 120 ml IV Total 2435 ml 1008 ml Output Urine Total 50 ml Drainage Total 425 ml 900 ml 700 ml # Voids 0 # Bowel Movements 0 0 Result Diagram: 02/27/17 0808 02/27/17 0808 Imaging Last Impressions Abdomen/Pelvis CT 02/21/17 0643 Signed Impressions: Service Date/Time: Tuesday, February 21, 2017 08:00 - CONCLUSION: 1. Right-sided hydroureter nephrosis even though there is a right-sided nephroureteral stent. 2. Left-sided hydronephrosis and hydroureter with dilatation of the distal left ureter containing soft tissue density/mass and/or debris. 3. There is no mass and debris within the posterior neobladder likely combination of tumor plus hemorrhage. 4. Hiatal hernia, bilateral renal low densities and diverticulosis. Lew Mas MD Abdomen X-Ray 02/21/17 0622 Signed Impressions: Service Date/Time: Tuesday, February 21, 2017 06:31 - CONCLUSION: 1. Right sided double-J stent in good position. 2. Benign-appearing abdomen. Sivakumar Bailey MD A/P Problem List: (1) Hydronephrosis due to obstructive malignant bladder cancer Status: Acute Plan: - comgmt with Urology - Pt admitted with worsening pain and PARAM/CKD, stage 4 secondary to obstructing metastatic urothelial bladder cancer - Pt follows with Dr. Maldonado and had been planned for cystoscopy with possible bilateral stent placement today but pt was in too much pain and proceeded to the ED. - Labs at admission noted an acute worsening of his baseline CKD with Cr 5.59 () - CT Abd/pelvis --> Right-sided hydroureter nephrosis even though there is a right-sided nephroureteral stent. Left-sided hydronephrosis and hydroureter with dilatation of the distal left ureter containing soft tissue density/mass and/or debris. There is no mass and debris within the posterior neobladder likely combination of tumor plus hemorrhage. - Nephrostomy (Bilateral), Ureteral Stent (left) performed by IR (02/22/17) - Pt transfused 2 units PRBCs on 02/22, - Case d/w IR today, and pt wound NOT be a candidate for embolization to control bleeding - On 02/24 pt had anterograde percutaneous pyelogram and Nephroureteral catheter exchange with IR -urology evaluated pt. plan for d/c tomorrow with nephrostomy tubes...hhc and f/ u urology 1 week for possible internalization of stenting. -pt remains somewhat symptomatic from the blood loss anemia. 2 units blood today then d/c tomorrow. (2) Acute worsening of stage 4 chronic kidney disease Status: Acute Plan: - See above. 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 Maldonado for Urology and Dr. Machado for Oncology. - Pt is currently on Opdivo (4) HTN (hypertension), benign Status: Chronic Plan: - Home meds continued - Clonidine PRN (5) Hypothyroidism Status: Chronic Plan: - Home meds continued (6) Hyperlipidemia Status: Chronic Problem Qualifiers (1) Hyperlipidemia: Qualified Code: E78.5 - Hyperlipidemia, unspecified hyperlipidemia type Buck Rey MD February 27, 2017 20:55
[2017-02-27] MEDS: TEMAZEPAM 15 MG CAP PO PRN (23:09)
[2017-02-28 00:50] VITALS: BP 151/77
[2017-02-28 05:38] VITALS: BP 162/74; PULSE 75; RESP 16; TEMP 96.4; O2SAT 94
[2017-02-28] MEDS: LEVOTHYROXINE SODIUM 125 MCG TAB PO SCH (05:43)
[2017-02-28] MEDS: MECLIZINE HCL 25 MG TAB PO SCH ×2 (05:43→11:12)
[2017-02-28 07:17] VITALS: PULSE 71
[2017-02-28 08:00] VITALS: BP 147/79; PULSE 76; RESP 18; TEMP 96.8; O2SAT 95
[2017-02-28] MEDS: FINASTERIDE 5 MG TAB PO SCH (08:15)
[2017-02-28] MEDS: SODIUM CHLORIDE 0.9% FLUSH 10 ML FLUSH IV FLUSH SCH (08:16)
[2017-02-28 09:17] LABS: AUTOMATED NEUTROPHIL # 5.9 TH/MM3 (1.8-7.7); BASOPHIL % 0.5 % (0.0-2.0); EOSINOPHIL # 0.4 TH/MM3 (0-0.4); EOSINOPHIL % 4.7 % (0.0-4.0); HEMATOCRIT 31.3 % (39.0-51.0); HEMO FLAGS DIFF FINAL; LYMPH % 7.3 % (9.0-44.0); LYMPHOCYTE # 0.5 TH/MM3 (1.0-4.8); MEAN CELL VOLUME 85.4 FL (80.0-100.0); MEAN CORPUSCULAR HEMOGLOBIN 29.5 PG (27.0-34.0); MEAN CORPUSCULAR HGB CONC 34.5 % (32.0-36.0); MONO % 8.5 % (0.0-8.0); PLATELET COUNT 202 TH/MM3 (150-450); RED BLOOD COUNT 3.66 MIL/MM3 (4.50-5.90); RED CELL DISTRIBUTION WIDTH 15.6 % (11.6-17.2); WHITE BLOOD COUNT 7.5 TH/MM3 (4.0-11.0)
[2017-02-28 09:55] LABS: BICARBONATE 25.4 MEQ/L (21.0-32.0); POTASSIUM 3.5 MEQ/L (3.5-5.1)
--- NOTE | 2017-02-28 12:02 | HHI.PR ---
Subjective Remarks anxious about going home. Objective Vitals heart reg lung cta abd s/nt ext no edema zeina nephrostomy tube light pink in bag on left today Vital Signs Date Time Temp Pulse Resp B/P Pulse Ox O2 Delivery O2 Flow Rate FiO2 02/28/17 08:00 96.8 76 18 147/79 95 02/28/17 07:17 71 02/28/17 05:38 96.4 75 16 162/74 94 02/28/17 00:50 151/77 02/27/17 23:51 98.4 79 18 96 02/27/17 23:00 90 02/27/17 20:43 98.1 88 18 150/75 96 02/27/17 20:18 97.5 88 16 150/70 96 02/27/17 16:00 98.7 88 18 139/70 97 02/27/17 02/27/17 02/28/17 15:00 23:00 07:00 Intake Total 1920 ml Output Total 2425 ml 975 ml 1900 ml Balance -505 ml -975 ml -1900 ml Intake Oral 1920 ml Output Urine Total 1925 ml Drainage Total 500 ml 975 ml 1900 ml # Bowel Movements 1 1 Result Diagram: 02/28/17 0855 02/28/17 0855 Imaging Last Impressions Abdomen/Pelvis CT 02/21/17 0643 Signed Impressions: Service Date/Time: Tuesday, February 21, 2017 08:00 - CONCLUSION: 1. Right-sided hydroureter nephrosis even though there is a right-sided nephroureteral stent. 2. Left-sided hydronephrosis and hydroureter with dilatation of the distal left ureter containing soft tissue density/mass and/or debris. 3. There is no mass and debris within the posterior neobladder likely combination of tumor plus hemorrhage. 4. Hiatal hernia, bilateral renal low densities and diverticulosis. Lew Mas MD Abdomen X-Ray 02/21/17 0622 Signed Impressions: Service Date/Time: Tuesday, February 21, 2017 06:31 - CONCLUSION: 1. Right sided double-J stent in good position. 2. Benign-appearing abdomen. Sivakumar Bailey MD A/P Problem List: (1) Hydronephrosis due to obstructive malignant bladder cancer Status: Acute Plan: - comgmt with Urology - Pt admitted with worsening pain and PARAM/CKD, stage 4 secondary to obstructing metastatic urothelial bladder cancer - Pt follows with Dr. Maldonado and had been planned for cystoscopy with possible bilateral stent placement today but pt was in too much pain and proceeded to the ED. - Labs at admission noted an acute worsening of his baseline CKD with Cr 5.59 () - CT Abd/pelvis --> Right-sided hydroureter nephrosis even though there is a right-sided nephroureteral stent. Left-sided hydronephrosis and hydroureter with dilatation of the distal left ureter containing soft tissue density/mass and/or debris. There is no mass and debris within the posterior neobladder likely combination of tumor plus hemorrhage. - Nephrostomy (Bilateral), Ureteral Stent (left) performed by IR (02/22/17) - Pt transfused 2 units PRBCs on 02/22, - Case d/w IR today, and pt wound NOT be a candidate for embolization to control bleeding - On 02/24 pt had anterograde percutaneous pyelogram and Nephroureteral catheter exchange with IR - 2 units blood 02/27 -urology evaluated pt.dc with nephrostomy tubes...hhc and f/u urology 1 week for possible internalization of stenting. (2) Acute worsening of stage 4 chronic kidney disease Status: Acute Plan: - See above. 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 Maldonado for Urology and Dr. Machado for Oncology. - Pt is currently on Opdivo (4) HTN (hypertension), benign Status: Chronic Plan: - Home meds continued - Clonidine PRN (5) Hypothyroidism Status: Chronic Plan: - Home meds continued (6) Hyperlipidemia Status: Chronic Problem Qualifiers (1) Hyperlipidemia: Qualified Code: E78.5 - Hyperlipidemia, unspecified hyperlipidemia type Buck Rey MD February 28, 2017 12:02
[2017-02-28] MEDS ORDERED: ZOFR4TAB3 SL (12:04)
[2017-02-28] MEDS ORDERED: MECL-62 PO (12:04)
--- NOTE | 2017-02-28 12:05 | HHI.DCPOC ---
Discharge Care Plan Diagnosis: (1) Acute worsening of stage 4 chronic kidney disease (2) Hydronephrosis due to obstructive malignant bladder cancer (3) HTN (hypertension), benign (4) Hypothyroidism Goals to Promote Your Health * To prevent worsening of your condition and complications * To maintain your health at the optimal level Directions to Meet Your Goals Take your medications as prescribed Follow your dietary instruction Follow activity as directed Keep your appointments as scheduled Take your immunizations and boosters as scheduled If your symptoms worsen call your PCP, if no PCP go to Urgent Care Center or Emergency Room Smoking is Dangerous to Your Health. Avoid second hand smoke Call the 24-hour hour crisis hotline for domestic abuse at Buck Rey MD February 28, 2017 12:05
--- NOTE | 2017-02-28 12:09 | HHI.FF ---
Face to Face Verification Diagnosis: (1) Hydronephrosis due to obstructive malignant bladder cancer (2) Acute worsening of stage 4 chronic kidney disease (3) HTN (hypertension), benign (4) Hypothyroidism Physical Therapy Order: Evaluate and Treat, Improve ambulation Home Health Nursing Order: Medical education Signs/symptoms of disease process Medication education-adverse effect Nursing assessment with vital signs Instructions: Pt with bilateral nephrostomy tube. assist with care. plan to f/u Urology next week for internalization. I have seen patient Javier Ludwig on 02/28/17. My clinical findings support the need for the requested home health care services because: Ltd mobility - disease progression Deconditioned w/ increased weakness Limited ability to care for self I certify that my clinical findings support that this patient is homebound because: Unsteady gait/balance Buck Rey MD February 28, 2017 12:09
[2017-02-28] MEDS ORDERED: WALKER WHEELS/F1 MIS (12:11)
[2017-02-28 12:34] VITALS: BP 150/77; PULSE 74; RESP 18; TEMP 99.9; O2SAT 95
[2017-02-28] MEDS ORDERED: POTASSIUM CHLORIDE 20 MEQ CONTROLLED RELEASE TAB PO ONE (13:00)
--- NOTE | 2017-03-14 15:50 | HHI.DS ---
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 Maldonado. Pt presented to the ED with complaints of worsening back pain. Pt reports that a few days ago one of his ureteral stents came out and has not been urinating well since that time. Pts reports that he has been having hematuria for the last 3 days. He has also been very nauseated and has not eaten or had any fluid intake since yesterday afternoon. And was eating very minimal for the last [address] Maldonado as an outpt yesterday and had been planned for cystoscopy with possible bilateral stent placement for today but he was in too much pain and proceeded to the ED this morning. Labs at admission noted an acute worsening of his baseline CKD with Cr 5.59 today. His baseline renal function in outpt records noted Cr between 1.9-2.3. CT Abd/pelvis noted tight- sided hydroureter nephrosis even though there is a right-sided nephroureteral stent, left-sided hydronephrosis and hydroureter with dilatation of the distal left ureter containing soft tissue density/mass and/or debris, and there is no mass and debris within the posterior neobladder likely combination of tumor plus hemorrhage. Denies any fevers/chills, chest pain, SOB, palpitations, dizziness, or weakness. Hospital Course - Pt admitted with worsening pain and PARAM/CKD, stage 4 secondary to obstructing metastatic urothelial bladder cancer - Pt follows with Dr. Maldonado and had been planned for cystoscopy with possible bilateral stent placement today but pt was in too much pain and proceeded to the ED. - Labs at admission noted an acute worsening of his baseline CKD with Cr 5.59 () - CT Abd/pelvis --> Right-sided hydroureter nephrosis even though there is a right-sided nephroureteral stent. Left-sided hydronephrosis and hydroureter with dilatation of the distal left ureter containing soft tissue density/mass and/or debris. There is no mass and debris within the posterior neobladder likely combination of tumor plus hemorrhage. - Nephrostomy (Bilateral), Ureteral Stent (left) performed by IR (02/22/17) - Pt transfused 2 units PRBCs on 02/22, - Case d/w IR , and pt wound NOT be a candidate for embolization to control bleeding - On 02/24 pt had anterograde percutaneous pyelogram and Nephroureteral catheter exchange with IR - 2 units blood 02/27 -urology evaluated pt.dc with nephrostomy tubes...hhc and f/u urology 1 week for possible internalization of stenting. Pt Condition on Discharge: Stable Discharge Disposition: Disch w/ Home Health Serv Discharge Instructions DIET: Follow Instructions for: As Tolerated, No Restrictions Activities you can perform: Regular-No Restrictions Follow up Referrals: PCP Follow-up - [address] harper [facility] - 1 Week with Rick Majano MD New Medications: Ondansetron Odt (Zofran Odt) 4 Mg Tab 4 MG SL Q6HR PRN Nausea/Vomiting #30 Ref 0 TAB Walker with Front Wheels (Walker with Front Wheels) 1 Mis Mis 1 EA .ROUTE DIRECTED #1 Ref 0 EA Meclizine (Meclizine) 25 Mg Tab 25 MG PO BID Vertigo Days 7 TAB Continued Medications: Amlodipine (Amlodipine) 10 Mg Tab 10 MG PO DAILY Blood Pressure Management #30 Ref 0 TAB Ascorbic Acid (Vitamin C) 1,000 Mg Tab 1000 MG PO Nutritional Supplement Ref 0 TAB Cyanocobalamin (B-12) 1,000 Mcg Cap 1000 MCG PO DAILY Nutritional Supplement #1 Ref 0 BOTTLE Finasteride (Proscar) 5 Mg Tab 5 MG PO DAILY Do not crush. Manage Prostate Problems #30 Ref 0 TAB Levothyroxine (Levothyroxine) 125 Mcg Tab 125 MCG PO DAILY Thyroid #30 Ref 0 TAB Magnesium (Magnesium) 200 Mg Tab 250 MG PO DAILY TAB Tamsulosin (Tamsulosin) 0.4 Mg Cap 0.4 MG PO HS Manage Prostate Problems #30 Ref 0 CAP Zinc Gluconate (Zinc) 50 Mg Tab 1 TAB PO DAILY Buck Rey MD Mar 14, 2017 15:50
== END 2017-02-28 13:39 | disposition home health service (06) | DRG 660 ==
LOC: NEPE 06:17 → NEDA 09:15 → N05A 13:53
PROVIDERS: ADMIT Hospitalist; ATTEND Hospitalist
PROC: 0T773DZ Dilation of Left Ureter with Intraluminal Device, Percutaneous Approach (ICD-10-PCS; principal; 2017-02-21)
PROC: 0T133JD Bypass Right Kidney Pelvis to Cutaneous with Synthetic Substitute, Percutaneous Approach (ICD-10-PCS; 2017-02-21)
PROC: 0T143JD Bypass Left Kidney Pelvis to Cutaneous with Synthetic Substitute, Percutaneous Approach (ICD-10-PCS; 2017-02-21)
PROC: 30233N1 Transfusion of Nonautologous Red Blood Cells into Peripheral Vein, Percutaneous Approach (ICD-10-PCS; 2017-02-22)
PROC: 0TP9XDZ Removal of Intraluminal Device from Ureter, External Approach (ICD-10-PCS; 2017-02-24)
PROC: 0T763DZ Dilation of Right Ureter with Intraluminal Device, Percutaneous Approach (ICD-10-PCS; 2017-02-24)
DX: N13.1 Hydronephrosis with ureteral stricture, not elsewhere classified (principal); C79.51 Secondary malignant neoplasm of bone; N18.4 Chronic kidney disease, stage 4 (severe); E11.22 Type 2 diabetes mellitus with diabetic chronic kidney disease; E86.0 Dehydration; C67.9 Malignant neoplasm of bladder, unspecified; D63.8 Anemia in other chronic diseases classified elsewhere; I12.9 Hypertensive chronic kidney disease with stage 1 through stage 4 chronic kidney disease, or unspecified chronic kidney disease; Z86.718 Personal history of other venous thrombosis and embolism; E03.9 Hypothyroidism, unspecified; E78.5 Hyperlipidemia, unspecified
CPT/HCPCS: 36430; 50384; 50432; 50433; 50434; 71010; 74000; 74176; 76937; 80048; 80053; 81001; 83735; 85007; 85025; 85027; 85610; 85730; 86850; 86900; 86901; 86920; 93005; 96374; 96375; 99152; 99153; C1729; C1769; C1773; C1877; C1887; C1894; J1170; J1940; J1956; J2250; J2405; J3010; J7030; J7050; P9016; Q9967

== ENCOUNTER 2017-08-08 07:22 | Day surgery (SDC) | payer MEDICARE ==
[~2017-08-08] VITALS: Ht 177.8 cm; Wt 77.0 kg
[~2017-08-08 07:22] MED LIST changes: -ASPI81TA81 PO; -GLIP5TAB8 PO; -HYDR50TA3 PO; -LISI-515 PO; +MECL-62 PO; +WALKER WHEELS/F1 MIS; +ZOFR4TAB3 SL
[2017-08-08] MEDS ORDERED: URIB118C PO (07:40)
[2017-08-08] MEDS ORDERED: CYAN1TAB24 (07:40)
[2017-08-08] MEDS ORDERED: URIB118C (07:40)
[2017-08-08 07:42] VITALS: BP 166/93; PULSE 83; RESP 20; TEMP 97.5; O2SAT 98
[2017-08-08] MEDS ORDERED: SODIUM CHLORIDE 0.9% 1000 ML IV SCH (08:00)
[2017-08-08 08:09] LABS: APTT (PATIENT) 24.5 SEC (24.3-30.1); PROTHROMBIN TIME - PATIENT 10.7 SEC (9.8-11.6)
[2017-08-08 08:15] LABS: BICARBONATE 22.9 MEQ/L (21.0-32.0); POTASSIUM 4.1 MEQ/L (3.5-5.1)
[2017-08-08] MEDS ORDERED: ceFAZolin 2 GM PREMIX 50 ML - implanted port/tunneled catheter insertion IV SCH (08:15)
[2017-08-08] MEDS ORDERED: MIDAZOLAM HCL 2 MG/2 ML VIAL ONE ×2 (08:45→09:17)
[2017-08-08] MEDS ORDERED: IOHEXOL 350 MG/ML 50 ML BTL (for RAD DIAG) IVCONTRAST ONE (09:23)
--- NOTE | 2017-08-08 09:36 | PD.RAD ---
Post Procedure Progress Note Pre Procedure Diagnosis: (1) Pulmonary emboli Post Procedure Diagnosis: (1) Pulmonary emboli Procedure Date: Aug 08, 2017 Supervising Radiologist: Alonzo Bonilla JR Proceduralist/Assist: Antolin Lawrence, RT(R), Corey Monreal RT(R)() Anesthesia: Conscious Sedation Plan of Activity Patient to Unit: ROPU Patient Condition: Good See PACS Report for procedural detail/treatment Vascular-Venous Procedure Procedure 1 Procedure(s): Retrievable IVC Filter Access Access Site(s): Right Femoral Vein Findings: Retrievable IVC filter placed without difficulty. This can be removed up to one year from todays date. Plan Can remove up to one year from today Jr. Chad,Alonzo De Paz MD Aug 08, 2017 09:36
[2017-08-08 09:40] VITALS: BP 185/91; PULSE 77; RESP 18; TEMP 97.9; O2SAT 94
[2017-08-08 09:55] VITALS: BP 184/85; PULSE 70; RESP 18; O2SAT 97
--- NOTE | 2017-08-08 10:03 | RADRPT ---
EXAM DATE/TIME: 08/08/2017 08:43 [facility] COMPARISON: No previous studies available for comparison. 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 MEDICAL HISTORY : 1.PE 2.DVT 3.Bladder cancer 4.Hydronephrosis 5.DM 6.HTN 7.Anemia 8.Osteoarthritis 9.Hypothyroidism SURGICAL HISTORY : 1.Bilateral ureteral stent 2.Cystoscopy 3.TURP 4.Inguinal hernia repair ENCOUNTER: Initial ACUITY: >1 year PAIN SCORE: 0/10 FLUORO TIME: 1.0 minutes IMAGE SERIES: 2 ACCESS SITE: Right Femoral vein SEDATION TIME: 30 minutes CONTRAST: 1.) 20 cc Omnipaque (iohexol) 350 MEDICATION(S): 1.) 2.5 mg midazolam (Versed) IV 2.) 125 mcg fentanyl (Sublimaze) IV DEVICE(S): 1.) Inferior vena cava Bard-Heron filter PROCEDURE : 1. Ultrasound-guided venipuncture. 2. Inferior venacavogram. 3. Inferior vena cava filter placement. 4. Conscious sedation with continuous EKG and oximetry monitoring. The risks, benefits and alternatives to the procedure were explained and verbal and written consent w as obtained. The site was prepped in sterile fashion. Full sterile technique was used, including ca p, mask, sterile gloves and gown and a large sterile sheet. Hand hygiene and 2% chlorhexidine and/or betadine/alcohol prep was utilized per protocol for cutaneous antisepsis. Sterile gel and sterile p robe cover were utilized for ultrasound guidance. The skin and subcutaneous tissues were infiltrated with local anesthetic solution. With ultrasound and fluoroscopic guidance the targeted vein was punctured and a vascular sheath was p laced. Inferior venacavogram was performed to demonstrate level of renal veins. No caval thrombus was identified. The prescribed filter was deployed in the infrarenal inferior vena cava. Following deplo yment the filter was identified in good position. Conscious sedation was performed with the prescribed dosages and duration as above in the presence of an independent trained radiology nurse to assist in the monitoring of the patient. EKG and oximetry remained stable throughout the procedure. The patient tolerated the procedure well and there were n o complications. The patient was sent to post anesthesia recovery in stable condition. CONCLUSION: Uncomplicated inferior vena cava filter placement as above. This is a retrievable device and can be r etrieved up to one year from today's date. Alonzo Bonilla Jr., MD on August 08, 2017 at 9:59 Board Certified Radiologist. This report was verified electronically.
[2017-08-08 10:25] VITALS: BP 183/87; PULSE 68; RESP 18; O2SAT 96
[2017-08-08 10:55] VITALS: BP 180/84; PULSE 82; RESP 18; O2SAT 96
[2017-08-08 11:55] VITALS: BP 179/84; PULSE 69; RESP 18; O2SAT 96
== END 2017-08-08 12:10 | disposition home or self-care (01) ==
LOC: HROP 07:22 → HRIP 07:22 → HROP 12:10
PROVIDERS: ATTEND Internal Medicine Hematology
DX: I82.3 Embolism and thrombosis of renal vein (principal); C67.2 Malignant neoplasm of lateral wall of bladder; D64.81 Anemia due to antineoplastic chemotherapy; I26.99 Other pulmonary embolism without acute cor pulmonale; Z79.01 Long term (current) use of anticoagulants
CPT/HCPCS: 37191; 80048; 85610; 85730; 99152; 99153; C1769; C1880; J0690; J2250; J3010; J7030; Q9967

== ENCOUNTER 2017-10-12 10:35 | Observation (INO) | payer MEDICARE ==
[2017-10-12] VITALS (13 sets, daily range): BP systolic 131–173; BP diastolic 62–84; PULSE 79–92; RESP 16–19; TEMP 97.1–98.6; O2SAT 94–100
[~2017-10-12] VITALS: Ht 177.8 cm; Wt 80.0 kg
[~2017-10-12 10:35] MED LIST changes: +CYAN1TAB24; -MECL-62 PO; +URIB118C; +URIB118C PO; -VITA10007 PO; -ZOFR4TAB3 SL
[2017-10-12] MEDS ORDERED: SODIUM CHLORIDE 0.9% FLUSH 10 ML FLUSH IV FLUSH PRN (11:15)
[2017-10-12] MEDS ORDERED: SODIUM CHLORIDE 0.9% FLUSH 10 ML FLUSH IVF PRN (11:15)
--- NOTE | 2017-10-12 11:40 | PD ---
HPI Chief Complaint: Complaint Time Seen by Provider: 11:08 Travel History International Travel<30 days: No Contact w/Intl Traveler<30days: No Traveled to known affect area: No History of Present Illness HPI 82-year-old male with history of bladder cancer scheduled for bladder surgery in 2 days, presents the emergency department with sudden onset hematuria with blood clots for the past 3 days. Patient has history of this in the past with cystoscopy with cauterization performed 3 weeks prior to 3 days ago. He states that seemed to have fixed the problem until 3 days ago. Patient denies any recent trauma, fever, chills, or other symptoms. He does not seem to have any symptoms of retention, despite blood clot passage. Patient now feels generalized weakness, shortness of breath with exertion, and is concerned about anemia which she's had in the past. Patient has had need of transfusions in the past, and he does not want that to interfere with his possible surgery on Friday which has been delayed twice prior to this scheduled surgery. Patient denies any other significant complaints. He has no known drug allergies. PFSH Past Medical History Arthritis: Yes (Left Shoulder) Asthma: No Autoimmune Disease: No Anxiety: No Depression: No Heart Rhythm Problems: No Cancer: Yes (Bladder Cancer) Cardiovascular Problems: No High Cholesterol: No Chemotherapy: Yes Chest Pain: No Congestive Heart Failure: No COPD: No Cerebrovascular Accident: No Diabetes: Yes Diminished Hearing: No Endocrine: No GERD: No Glaucoma: No Hepatitis: No Hiatal Hernia: No Hypertension: Yes Immune Disorder: No Kidney Stones: No Musculoskeletal: No Neurologic: No Psychiatric: No Reproductive: No Respiratory: No Immunizations Current: No Migraines: No Radiation Therapy: Yes Renal Failure: Yes Seizures: No Sickle Cell Disease: No Sleep Apnea: No Thyroid Disease: Yes (HYPO) Ulcer: No Past Surgical History Abdominal Surgery: Yes (hernia repair) AICD: No Arteriovenous Shunt: No Cardiac Surgery: No Ear Surgery: No Endocrine Surgery: No Eye Surgery: Yes (sx for double vision left eye) Genitourinary Surgery: Yes (KIDNEY STENTS ) Gynecologic Surgery: No Insulin Pump: No Joint Replacement: No Oral Surgery: No Pacemaker: No Thoracic Surgery: No Social History Alcohol Use: Yes (occ) Tobacco Use: No Substance Use: No Allergies-Medications (Allergen,Severity, Reaction): Coded Allergies: No Known Allergies (Verified Adverse Reaction, Unknown, 10/12/17) Reported Meds & Prescriptions Reported Meds & Active Scripts Active Reported Temazepam 15 Mg Cap 15 Mg PO HS PRN Vitamin C (Ascorbic Acid) 1,000 Mg Tablet.er Uribel (Rzulymxonxw-Nnsjp-Mfusuncsm Blue) 1 Cap 2 Cap PO DAILY B12 (Cyanocobalamin) 1,000 Mcg Tab DAILY Zinc (Zinc Gluconate) 50 Mg Tab 1 Tab PO DAILY Magnesium 200 Mg Tab 250 Mg PO DAILY Proscar (Finasteride) 5 Mg Tab 5 Mg PO DAILY Do not crush. Tamsulosin (Tamsulosin HCl) 0.4 Mg Cap 0.4 Mg PO HS Amlodipine (Amlodipine Besylate) 10 Mg Tab 10 Mg PO DAILY Levothyroxine (Levothyroxine Sodium) 125 Mcg Tab 125 Mcg PO DAILY Review of Systems Except as stated in HPI: all other systems reviewed are Neg General / Constitutional: No: Fever Eyes: No: Visual changes HENT: No: Headaches Cardiovascular: No: Chest Pain or Discomfort Respiratory: No: Shortness of Breath Gastrointestinal: No: Abdominal Pain Genitourinary: Positive: Hematuria, No: Urgency, Frequency, Dysuria, Decreased Urinary Output, Pelvic Pain, Flank Pain Musculoskeletal: No: Pain Skin: No Rash Neurologic: No: Weakness Psychiatric: No: Depression Endocrine: No: Polydipsia Hematologic/Lymphatic: No: Easy Bruising Physical Exam Narrative GENERAL: Patient appears in no obvious distress. SKIN: Warm and dry. Patient is obviously pale, but normal turgor. HEAD: Atraumatic. Normocephalic. EYES: Pupils equal and round. No scleral icterus. No injection or drainage. Decreased pallor. ENT: No nasal bleeding or discharge. Mucous membranes pink and moist. Pharynx is clear. Airway is patent. NECK: Trachea midline. Supple and nontender. CARDIOVASCULAR: Regular rate and rhythm. No murmurs gallops or rubs. RESPIRATORY: No accessory muscle use. Clear to auscultation. Breath sounds equal bilaterally. GASTROINTESTINAL: Abdomen soft, non-tender, nondistended. Hepatic and splenic margins not palpable. MUSCULOSKELETAL: Extremities without clubbing, cyanosis, or edema. No obvious deformities. NEUROLOGICAL: Awake and alert. No obvious cranial nerve deficits. Motor grossly within normal limits. Five out of 5 muscle strength in the arms and legs. Normal speech. PSYCHIATRIC: Appropriate mood and affect; insight and judgment normal. Data Data Last Documented VS Vital Signs Date Time Temp Pulse Resp B/P (MAP) Pulse Ox O2 Delivery O2 Flow Rate FiO2 10/12/17 11:47 100 Room Air 10/12/17 10:38 98.2 89 16 Orders Orders Complete Blood Count With Diff (10/12/17 11:15) Comprehensive Metabolic Panel (10/12/17 11:15) Urinalysis - C+S If Indicated (10/12/17 11:15) Sodium Chloride 0.9% Flush (Ns Flush) (10/12/17 11:15) Prothrombin Time / Inr (Pt) (10/12/17 11:15) Act Partial Throm Time (Ptt) (10/12/17 11:15) Iv Access Insert/Monitor (10/12/17 11:15) Ecg Monitoring (10/12/17 11:15) Oximetry (10/12/17 11:15) Sodium Chloride 0.9% Flush (Ns Flush) (10/12/17 11:15) Type And Screen (10/12/17 11:15) Red Blood Cells (Rbc) (10/12/17 12:30) Blood Product Administration (10/12/17 12:30) Sodium Chlor 0.9% 250 Ml Inj (Ns 250 Ml (10/12/17 12:30) Diphenhydramine (Benadryl) (10/12/17 12:30) Diphenhydramine (Benadryl) (10/12/17 12:30) Acetaminophen (Tylenol) (10/12/17 12:30) Acetaminophen (Tylenol) (10/12/17 12:30) Admit Order (Ed Use Only) (10/12/17 12:38) Labs Laboratory Tests Test 10/12/17 11:45 10/12/17 11:56 White Blood Count 6.6 TH/MM3 Red Blood Count 2.41 MIL/MM3 Hemoglobin 7.6 GM/DL Hematocrit 23.4 % Mean Corpuscular Volume 97.0 FL Mean Corpuscular Hemoglobin 31.6 PG Mean Corpuscular Hemoglobin Concent 32.6 % Red Cell Distribution Width 19.3 % Platelet Count 237 TH/MM3 Mean Platelet Volume 6.7 FL Neutrophils (%) (Auto) 72.5 % Lymphocytes (%) (Auto) 11.5 % Monocytes (%) (Auto) 9.9 % Eosinophils (%) (Auto) 5.5 % Basophils (%) (Auto) 0.6 % Neutrophils # (Auto) 4.8 TH/MM3 Lymphocytes # (Auto) 0.8 TH/MM3 Monocytes # (Auto) 0.7 TH/MM3 Eosinophils # (Auto) 0.4 TH/MM3 Basophils # (Auto) 0.0 TH/MM3 CBC Comment AUTO DIFF Differential Total Cells Counted 100 Neutrophils % (Manual) 54 % Band Neutrophils % 9 % Lymphocytes % 17 % Monocytes % 10 % Eosinophils % 8 % Neutrophils # (Manual) 4.3 TH/MM3 Metamyelocytes 1 % Myelocytes 1 % Differential Comment FINAL DIFF MANUAL Platelet Estimate NORMAL Platelet Morphology Comment NORMAL Tear Drop Cells 1+ Prothrombin Time 10.4 SEC Prothromb Time International Ratio 1.0 RATIO Activated Partial Thromboplast Time 20.3 SEC Blood Urea Nitrogen 47 MG/DL Creatinine 2.19 MG/DL Random Glucose 140 MG/DL Total Protein 7.1 GM/DL Albumin 2.6 GM/DL Calcium Level 8.5 MG/DL Alkaline Phosphatase 89 U/L Aspartate Amino Transf (AST/SGOT) 16 U/L Alanine Aminotransferase (ALT/SGPT) 13 U/L Total Bilirubin 0.2 MG/DL Sodium Level 142 MEQ/L Potassium Level 4.4 MEQ/L Chloride Level 113 MEQ/L Carbon Dioxide Level 20.5 MEQ/L Anion Gap 9 MEQ/L Estimat Glomerular Filtration Rate 29 ML/MIN Urine Color RED Urine Turbidity CLOUDY Urine pH 7.5 Urine Specific [place] 1.026 Urine Protein GREATER THAN 600 mg/dL Urine Glucose (UA) TRACE mg/dL Urine Ketones NEG mg/dL Urine Occult Blood LARGE Urine Nitrite NEG Urine Bilirubin NEG Urine Urobilinogen LESS THAN 2.0 MG/DL Urine Leukocyte Esterase SMALL Urine RBC /hpf Urine WBC 21 /hpf Urine WBC Clumps OCC Urine Bacteria FEW /hpf Urine Mucus MANY /lpf Microscopic Urinalysis Comment CULTURE INDICATED MDM Medical Decision Making Medical Screen Exam Complete: Yes Emergency Medical Condition: Yes Medical Record Reviewed: Yes Differential Diagnosis History of bladder cancer. Hematuria. Anemia. History of stage IV chronic kidney disease. Narrative Course Patient is medically stable at time of exam. Labs ordered including CBC, CMP, PTT and INR, and urinalysis. Type and screen is ordered. CBC returned showing hemoglobin 7.6 with hematocrit of 23.4. There is no leukocytosis. Platelets are normal at 237. Coagulation studies are unremarkable. CMP shows a BUN of 47, creatinine 2.19 was slightly elevated from previous. GFR is estimated at 29. Urinalysis shows large amount of blood, as well as occasional PVC clumps and few bacteria. Patient is given Rocephin 1000 mg I V. 2 units of red blood cells are ordered for transfusion. Hospitalist is called for admission. Diagnosis Primary Impression: Symptomatic anemia Additional Impressions: Hematuria, gross Bladder cancer Qualified Codes: C67.9 - Malignant neoplasm of bladder, unspecified UTI (urinary tract infection) Qualified Codes: N30.01 - Acute cystitis with hematuria Admitting Information Admitting Physician Requests: Observation Condition: Stable Mauri Smith Oct 12, 2017 11:40
[2017-10-12] MEDS ORDERED: TEMA15CA PO (11:58)
[2017-10-12] MEDS ORDERED: ASCO100029 (11:58)
[2017-10-12 12:07] LABS: AUTOMATED NEUTROPHIL # 4.8 TH/MM3 (1.8-7.7); BASOPHIL % 0.6 % (0.0-2.0); EOSINOPHIL # 0.4 TH/MM3 (0-0.4); EOSINOPHIL % 5.5 % (0.0-4.0); HEMATOCRIT 23.4 % (39.0-51.0); HEMOGLOBIN 7.6 GM/DL (13.0-17.0); LYMPH % 11.5 % (9.0-44.0); LYMPHOCYTE # 0.8 TH/MM3 (1.0-4.8); MEAN CORPUSCULAR HEMOGLOBIN 31.6 PG (27.0-34.0); MEAN CORPUSCULAR HGB CONC 32.6 % (32.0-36.0); MEAN PLATELET VOLUME 6.7 FL (7.0-11.0); MONO % 9.9 % (0.0-8.0); MONOCYTE # 0.7 TH/MM3 (0-0.9); NEUT % 72.5 % (16.0-70.0); PLATELET COUNT 237 TH/MM3 (150-450); RED BLOOD COUNT 2.41 MIL/MM3 (4.50-5.90); RED CELL DISTRIBUTION WIDTH 19.3 % (11.6-17.2); WHITE BLOOD COUNT 6.6 TH/MM3 (4.0-11.0)
[2017-10-12 12:22] LABS: PROTHROMBIN TIME - PATIENT 10.4 SEC (9.8-11.6)
[2017-10-12] MEDS ORDERED: diphenhydrAMINE HCL 25 MG CAP PO ONE (12:30)
[2017-10-12] MEDS ORDERED: SODIUM CHLOR 0.9% 250 ML INJ 250 ML IV ONE (12:30)
[2017-10-12] MEDS ORDERED: ACETAMINOPHEN 325 MG TAB PO ONE (12:30)
[2017-10-12 12:36] LABS: ALBUMIN 2.6 GM/DL (3.4-5.0); ALT (GPT) 13 U/L (12-78); AST (GOT) 16 U/L (15-37); BICARBONATE 20.5 MEQ/L (21.0-32.0); BLOOD UREA NITROGEN 47 MG/DL (7-18); CALCIUM 8.5 MG/DL (8.5-10.1); CHLORIDE 113 MEQ/L (98-107); CREATININE 2.19 MG/DL (0.60-1.30); GLOMERULAR FILTRATION RATE 29 ML/MIN (>89); GLUCOSE,RANDOM 140 MG/DL (74-106); SODIUM (NA) 142 MEQ/L (136-145)
[2017-10-12 12:39] LABS: ALKALINE PHOSPHATASE 89 U/L (45-117); TOTAL BILIRUBIN ADULT 0.2 MG/DL (0.2-1.0); TOTAL PROTEIN 7.1 GM/DL (6.4-8.2)
[2017-10-12 12:43] LABS: BACTERIA, URINE FEW /hpf; BILIRUBIN, URINE NEG (NEG); BLOOD, URINE LARGE (NEG); GLUCOSE,URINE TRACE mg/dL (NEG); KETONE, URINE NEG (NEG); MUCUS URINE MANY /lpf (OCC); NITRITE,URINE NEG (NEG); PH, URINE 7.5 (5.0-8.5); URINE LEUKOCYTE ESTERASE SMALL (NEG); WHITE BLOOD CELL CLUMPS OCC
[2017-10-12 12:44] LABS: URINE COLOR RED (YELLW/STRAW)
[2017-10-12 13:06] LABS: BANDS 9 % (0-6); LYMPHOCYTES 17 % (9-44); METAMYELOCYTES 1 % (0-1); MONOCYTES 10 % (0-8); MYELOCYTES 1 % (0-0); NEUTROPHIL # MANUAL DIFF 4.3 TH/MM3 (1.8-7.7); POLYS (SEG NEUTROPHILS) 54 % (16-70)
[2017-10-12 13:08] LABS: TEARDROP RBCS 1+ (NORMAL)
[2017-10-12] MEDS ORDERED: cefTRIAXone INJ 1,000 MG in SODIUM CHLORIDE 0.9% INJ 100 ML IV ONE (13:30)
--- NOTE | 2017-10-12 13:43 | HHI.HP ---
HPI Service [facility] Hospitalists Primary Care Physician Jasmeet Farah MD Admission Diagnosis Symptomatic Anemia/Hematuria/Bladder CA Chief Complaint: Hematuria Travel History International Travel<30 Days: No Contact w/Intl Traveler <30 Da: No Traveled to Known Affected Are: No History of Present Illness Mr. 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 He follows with Dr. Godinez. Pt had a cystoscopy with reported cauterization about [address] Godinez. He was doing well after the procedure but around 1 week ago he started having some slight blood in the urine then two days ago he stared having increased hematuria with blood clots. He has some dysuria with passing the large blood clots. Pt started having some generalized weakness and [place] [facility] [place] He has a cystoscopy with stent exchange planned for 10/14/16. He denies any fevers or chills, back pain, nausea/vomiting, chest pain, SOB, palpitations , or dizziness. Pts labs at admission noted Hgb 7.6/Hct 23.4. Pt is being admitted for observation for transfusion. Review of Systems Constitutional: DENIES: Fever, Chills Eyes: DENIES: Vision loss Ears, nose, mouth, throat: DENIES: Hearing loss Respiratory: DENIES: Cough, Sputum production, Shortness of breath Cardiovascular: DENIES: Chest pain, Palpitations Gastrointestinal: DENIES: Abdominal pain, Constipation, Diarrhea, Nausea, Vomiting Genitourinary: COMPLAINS OF: Hematuria, Dysuria, DENIES: Urinary frequency, Urinary incontinence Musculoskeletal: DENIES: Back pain Integumentary: DENIES: Rash Neurologic: DENIES: Headache Psychiatric: DENIES: Confusion Past Family Social History Past Medical History CKD, stage 4, Cr typically between 2-2.3 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, on Opdivo Hydronephrosis due to ureteral stricture and currently with bilateral stents in place Recurrent hematuria 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 s/p IVC filter placement Hx of PE HTN Hyperlipidemia Diabetes mellitus, Hgb A1C 5.1% on 08/20/17 Hypothyroidism Chronic anemia Cataracts Past Surgical History IVC filter placed in 07/2017 Cystoscopy with ureteral stent placement Bilateral cataract surgery Hernia repair Varicose vein ligation Strabismus repair Reported Medications Temazepam 15 Mg Cap 15 Mg PO HS PRN Vitamin C (Ascorbic Acid) 1,000 Mg Tablet.er Uribel (Allrrvadfjj-Oywxt-Eluhdjkkj Blue) 1 Cap 2 Cap PO DAILY B12 (Cyanocobalamin) 1,000 Mcg Tab DAILY Zinc (Zinc Gluconate) 50 Mg Tab 1 Tab PO DAILY Magnesium 200 Mg Tab 250 Mg PO DAILY Proscar (Finasteride) 5 Mg Tab 5 Mg PO DAILY Do not crush. Tamsulosin (Tamsulosin HCl) 0.4 Mg Cap 0.4 Mg PO HS Amlodipine (Amlodipine Besylate) 10 Mg Tab 10 Mg PO DAILY Levothyroxine (Levothyroxine Sodium) 125 Mcg Tab 125 Mcg PO DAILY Allergies: Coded Allergies: No Known Allergies (Verified Allergy, Unknown, 10/12/17) Family History Father with hx of Leukemia Social History Denies any alcohol, tobacco or illicit drug use Physical Exam Vital Signs Vital Signs Date Time Temp Pulse Resp B/P (MAP) Pulse Ox O2 Delivery O2 Flow Rate FiO2 10/12/17 11:47 100 Room Air 10/12/17 10:38 98.2 89 16 164/76 (105) 100 Room Air Physical Exam GENERAL: This is a well-nourished, well-developed patient, in no apparent distress. SKIN: No rashes, ecchymoses or lesions. Cool and dry. HEENT: Atraumatic. Normocephalic. No temporal or scalp tenderness. No scleral icterus. Airway patent. NECK: Trachea midline, supple, nontender. CARDIO: Regular. RESP: CTA bilaterally. No wheezes, rales, or rhonchi. ABD: +BS, soft, non-tender, nondistended. EXT: Extremities without clubbing, cyanosis, or edema. NEURO: Awake and alert. Motor and sensory grossly within normal limits. Normal speech. Laboratory Laboratory Tests Test 10/12/17 11:45 10/12/17 11:56 White Blood Count 6.6 Red Blood Count 2.41 Hemoglobin 7.6 Hematocrit 23.4 Mean Corpuscular Volume 97.0 Mean Corpuscular Hemoglobin 31.6 Mean Corpuscular Hemoglobin Concent 32.6 Red Cell Distribution Width 19.3 Platelet Count 237 Mean Platelet Volume 6.7 Neutrophils (%) (Auto) 72.5 Lymphocytes (%) (Auto) 11.5 Monocytes (%) (Auto) 9.9 Eosinophils (%) (Auto) 5.5 Basophils (%) (Auto) 0.6 Neutrophils # (Auto) 4.8 Lymphocytes # (Auto) 0.8 Monocytes # (Auto) 0.7 Eosinophils # (Auto) 0.4 Basophils # (Auto) 0.0 CBC Comment AUTO DIFF Differential Total Cells Counted 100 Neutrophils % (Manual) 54 Band Neutrophils % 9 Lymphocytes % 17 Monocytes % 10 Eosinophils % 8 Neutrophils # (Manual) 4.3 Metamyelocytes 1 Myelocytes 1 Differential Comment FINAL DIFF MANUAL Platelet Estimate NORMAL Platelet Morphology Comment NORMAL Tear Drop Cells 1+ Prothrombin Time 10.4 Prothromb Time International Ratio 1.0 Activated Partial Thromboplast Time 20.3 Blood Urea Nitrogen 47 Creatinine 2.19 Random Glucose 140 Total Protein 7.1 Albumin 2.6 Calcium Level 8.5 Alkaline Phosphatase 89 Aspartate Amino Transf (AST/SGOT) 16 Alanine Aminotransferase (ALT/SGPT) 13 Total Bilirubin 0.2 Sodium Level 142 Potassium Level 4.4 Chloride Level 113 Carbon Dioxide Level 20.5 Anion Gap 9 Estimat Glomerular Filtration Rate 29 Urine Color RED Urine Turbidity CLOUDY Urine pH 7.5 Urine Specific [place] 1.026 Urine Protein GREATER THAN 600 Urine Glucose (UA) TRACE Urine Ketones NEG Urine Occult Blood LARGE Urine Nitrite NEG Urine Bilirubin NEG Urine Urobilinogen LESS THAN 2.0 Urine Leukocyte Esterase SMALL Urine RBC Urine WBC 21 Urine WBC Clumps OCC Urine Bacteria FEW Urine Mucus MANY Microscopic Urinalysis Comment CULTURE INDICATED Date/Time Source Procedure Growth Status 10/12/17 11:56 Urine Clean Catch Urine Culture Pending Received Result Diagram: 10/12/17 1145 10/12/17 1145 Caprini VTE Risk Assessment Caprini VTE Risk Assessment: Mod/High Risk (score >= 2) Caprini Risk Assessment Model Point Value = 1 Point Value = 2 Point Value = 3 Point Value = 5 Age 41-60 Minor surgery BMI > 25 kg/m2 Swollen legs Varicose veins or History of unexplained or recurrent spontaneous Oral contraceptives or hormone replacement Sepsis (< 1 month) Serious lung disease, including pneumonia (< 1 month) Abnormal pulmonary function Acute myocardial infarction Congestive heart failure (< 1 month) History of inflammatory bowel disease Medical patient at bed rest Age 61-74 Arthroscopic surgery Major open surgery (> 45 min) Laparoscopic surgery (> 45 min) Malignancy Confined to bed (> 72 hours) Immobilizing plaster cast Central venous access Age >= 75 History of VTE Family history of VTE Factor V Leiden Prothrombin [id number] Lupus anticoagulant Anticardiolipin antibodies Elevated serum homocysteine Heparin-induced thrombocytopenia Other congenital or acquired thrombophilia Stroke (< 1 month) Elective arthroplasty Hip, pelvis, or leg fracture Acute spinal cord injury (< 1 month) Prophylaxis Regimen Total Risk Factor Score Risk Level Prophylaxis Regimen 0-1 Low Early ambulation 2 Moderate Order ONE of the following: *Sequential Compression Device (SCD) *Heparin 5000 units SQ BID 3-4 Higher Order ONE of the following medications: *Heparin 5000 units SQ TID *Enoxaparin/Lovenox 40 mg SQ daily (WT < 150 kg, CrCl > 30 mL/min) *Enoxaparin/Lovenox 30 mg SQ daily (WT < 150 kg, CrCl > 10-29 mL/min) *Enoxaparin/Lovenox 30 mg SQ BID (WT < 150 kg, CrCl > 30 mL/min) AND/OR *Sequential Compression Device (SCD) 5 or more Highest Order ONE of the following medications: *Heparin 5000 units SQ TID (Preferred with Epidurals) *Enoxaparin/Lovenox 40 mg SQ daily (WT < 150 kg, CrCl > 30 mL/min) *Enoxaparin/Lovenox 30 mg SQ daily (WT < 150 kg, CrCl > 10-29 mL/min) *Enoxaparin/Lovenox 30 mg SQ BID (WT < 150 kg, CrCl > 30 mL/min) AND *Sequential Compression Device (SCD) Assessment and Plan Problem List: (1) Hematuria, gross ICD Codes: R31.0 - Gross hematuria Status: Acute Plan: Pt is an 82 y/o male with CKD, stage 4, 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 He follows with Dr. Godinez. Pt recently had a cystoscopy with reported cauterization about [address] Godinez. Recurrent Hematuria Metastatic urothelial bladder cancer Symptomatic anemia - Around 1 week ago pt started having some hematuria then two days ago he stared having increased hematuria with blood clots. He has some dysuria with passing the large blood clots. Pt started having some generalized weakness and [place] [facility] [place]. - Pts labs at admission noted Hgb 7.6/Hct 23.4. - Transfuse 2 units PRBCs - He has a cystoscopy with stent exchange planned for 10/14/16, with Dr. Godinez. - Pt does not seem to have any UTI symptoms. - Monitor I&Os - Anticipate discharge tomorrow is H/H remains stable after transfusion HTN - Home meds continued - Clonidine PRN CKD, stage 4 - Labs slightly higher than baseline - Recheck in AM after pt receives some volume resuscitation with transfusion. BPH - Home meds continued Hypothyroidism - Home meds continued Recurrent DVT in 07/2017 - Pt had IVC filter placed in 07/2017. He could not tolerate anticoagulants due to hematuria. (2) Symptomatic anemia ICD Codes: D64.9 - Anemia, unspecified Status: Acute (3) Metastatic urothelial carcinoma ICD Codes: C79.10 - Secondary malignant neoplasm of unspecified urinary organs Status: Chronic (4) HTN (hypertension), benign ICD Codes: I10 - Essential (primary) hypertension Status: Chronic (5) Hypothyroidism ICD Codes: E03.9 - Hypothyroidism, unspecified Status: Chronic (6) Hyperlipidemia ICD Codes: E78.5 - Hyperlipidemia, unspecified Status: Chronic Assessment and Plan Patient examined. Assessment and plan formulated with Jessenia Ramsey PA-C. I agree with the above. metastatic urothelial bladder ca. follows with dr godinez. has cysto planned for Friday sent in for blood transfusion due to acute blood loss anemia/hematuria 2 units tonight then d/c home tomorrow. Jessenia Ramsey Oct 12, 2017 13:43 Buck Rey MD Oct 12, 2017 15:34
[2017-10-12] MEDS ORDERED: TEMAZEPAM 15 MG CAP PO PRN (13:45)
[2017-10-12] MEDS ORDERED: ONDANSETRON HCL 4 MG/2 ML VIAL IV PRN (14:45)
[2017-10-12] MEDS ORDERED: cloNIDine HCL 0.1 MG TAB PO PRN (14:45)
[2017-10-12] MEDS ORDERED: ACETAMINOPHEN 325 MG TAB PO PRN (14:45)
[2017-10-12] MEDS: ACETAMINOPHEN 325 MG TAB PO PRN (19:46)
[2017-10-12] MEDS: diphenhydrAMINE HCL 25 MG CAP PO PRN (19:47)
[2017-10-12] MEDS ORDERED: TAMSULOSIN HCL 0.4 MG CAP PO SCH (21:00)
[2017-10-13] VITALS: BP 134/65; PULSE 83; RESP 19; TEMP 97.3; O2SAT 96
[2017-10-13] MEDS: diphenhydrAMINE HCL 25 MG CAP PO PRN (00:07)
[2017-10-13] MEDS: ACETAMINOPHEN 325 MG TAB PO PRN (00:07)
[2017-10-13 01:17] VITALS: BP 156/74; PULSE 78; RESP 18; TEMP 96.3; O2SAT 97
[2017-10-13 01:54] VITALS: BP 140/70; PULSE 77; RESP 18; TEMP 96.3; O2SAT 98
[2017-10-13 04:09] VITALS: BP 152/71; PULSE 67; RESP 18; TEMP 98.6; O2SAT 96
[2017-10-13] MEDS ORDERED: LEVOTHYROXINE SODIUM 125 MCG TAB PO SCH (06:00)
[2017-10-13 07:24] VITALS: BP 153/76; PULSE 70; RESP 18; TEMP 98.1; O2SAT 97
[2017-10-13] MEDS ORDERED: [UNRECOGNIZED DRUG - MIXTURE] PO SCH (09:00)
[2017-10-13] MEDS ORDERED: FINASTERIDE 5 MG TAB PO SCH (09:00)
[2017-10-13 10:27] LABS: AUTOMATED NEUTROPHIL # 4.8 TH/MM3 (1.8-7.7); BASOPHIL # 0.1 TH/MM3 (0-0.2); BASOPHIL % 0.8 % (0.0-2.0); EOSINOPHIL # 0.4 TH/MM3 (0-0.4); EOSINOPHIL % 5.9 % (0.0-4.0); HEMATOCRIT 28.1 % (39.0-51.0); HEMOGLOBIN 9.6 GM/DL (13.0-17.0); LYMPHOCYTE # 0.7 TH/MM3 (1.0-4.8); MEAN CELL VOLUME 94.3 FL (80.0-100.0); MEAN CORPUSCULAR HEMOGLOBIN 32.1 PG (27.0-34.0); MEAN PLATELET VOLUME 6.7 FL (7.0-11.0); MONO % 8.5 % (0.0-8.0); MONOCYTE # 0.6 TH/MM3 (0-0.9); NEUT % 73.8 % (16.0-70.0); PLATELET COUNT 213 TH/MM3 (150-450); RED BLOOD COUNT 2.98 MIL/MM3 (4.50-5.90); RED CELL DISTRIBUTION WIDTH 17.3 % (11.6-17.2); WHITE BLOOD COUNT 6.5 TH/MM3 (4.0-11.0)
[2017-10-13 10:41] LABS: BICARBONATE 19.1 MEQ/L (21.0-32.0); CALCIUM 8.8 MG/DL (8.5-10.1); CREATININE 1.81 MG/DL (0.60-1.30); MAGNESIUM 1.7 MG/DL (1.5-2.5)
[2017-10-13 11:10] LABS: BANDS 2 % (0-6); LYMPHOCYTES 13 % (9-44); METAMYELOCYTES 2 % (0-1); MONOCYTES 3 % (0-8); MYELOCYTES 1 % (0-0); NEUTROPHIL # MANUAL DIFF 5.1 TH/MM3 (1.8-7.7); POLYS (SEG NEUTROPHILS) 74 % (16-70)
[2017-10-13 11:11] LABS: TEARDROP RBCS 1+ (NORMAL)
[2017-10-13 11:35] VITALS: BP 152/79; PULSE 77; RESP 16; TEMP 97.3; O2SAT 97
--- NOTE | 2017-10-13 13:19 | HHI.PR ---
Subjective Remarks Pt still with hematuria but not as much blood clots noted Pt wants to go home today as he has followup with Dr. Maldonado tomorrow for cystoscopy Objective Vitals Vital Signs Date Time Temp Pulse Resp B/P (MAP) Pulse Ox O2 Delivery O2 Flow Rate FiO2 10/13/17 11:35 97.3 77 16 152/79 (103) 97 10/13/17 07:24 98.1 70 18 153/76 (101) 97 10/13/17 04:09 98.6 67 18 152/71 (98) 96 10/13/17 01:54 96.3 77 18 140/70 98 10/13/17 01:17 96.3 78 18 156/74 97 10/13/17 00:00 97.3 83 19 134/65 96 10/12/17 23:59 80 10/12/17 23:51 97.3 83 19 134/65 (88) 96 10/12/17 20:12 97.4 79 18 134/65 98 10/12/17 20:05 80 10/12/17 19:52 97.1 81 18 132/68 98 10/12/17 19:40 97.1 82 18 132/68 97 10/12/17 19:29 98.6 82 18 141/62 (88) 100 10/12/17 17:35 81 10/12/17 16:14 98.1 82 18 131/62 (85) 94 10/12/17 14:43 10/12/17 14:35 97.5 82 18 173/74 (107) 99 10/12/17 14:03 92 16 168/84 (112) 100 Room Air Result Diagram: 10/13/17 0953 10/13/17 0953 Other Results Laboratory Tests Test 10/12/17 11:45 10/12/17 11:56 10/13/17 09:53 White Blood Count 6.6 TH/MM3 6.5 TH/MM3 Red Blood Count 2.41 MIL/MM3 2.98 MIL/MM3 Hemoglobin 7.6 GM/DL 9.6 GM/DL Hematocrit 23.4 % 28.1 % Mean Corpuscular Volume 97.0 FL 94.3 FL Mean Corpuscular Hemoglobin 31.6 PG 32.1 PG Mean Corpuscular Hemoglobin Concent 32.6 % 34.0 % Red Cell Distribution Width 19.3 % 17.3 % Platelet Count 237 TH/MM3 213 TH/MM3 Mean Platelet Volume 6.7 FL 6.7 FL Neutrophils (%) (Auto) 72.5 % 73.8 % Lymphocytes (%) (Auto) 11.5 % 11.0 % Monocytes (%) (Auto) 9.9 % 8.5 % Eosinophils (%) (Auto) 5.5 % 5.9 % Basophils (%) (Auto) 0.6 % 0.8 % Neutrophils # (Auto) 4.8 TH/MM3 4.8 TH/MM3 Lymphocytes # (Auto) 0.8 TH/MM3 0.7 TH/MM3 Monocytes # (Auto) 0.7 TH/MM3 0.6 TH/MM3 Eosinophils # (Auto) 0.4 TH/MM3 0.4 TH/MM3 Basophils # (Auto) 0.0 TH/MM3 0.1 TH/MM3 CBC Comment AUTO DIFF AUTO DIFF Differential Total Cells Counted 100 100 Neutrophils % (Manual) 54 % 74 % Band Neutrophils % 9 % 2 % Lymphocytes % 17 % 13 % Monocytes % 10 % 3 % Eosinophils % 8 % 5 % Neutrophils # (Manual) 4.3 TH/MM3 5.1 TH/MM3 Metamyelocytes 1 % 2 % Myelocytes 1 % 1 % Differential Comment FINAL DIFF MANUAL FINAL DIFF MANUAL Platelet Estimate NORMAL NORMAL Platelet Morphology Comment NORMAL NORMAL Tear Drop Cells 1+ 1+ Prothrombin Time 10.4 SEC Prothromb Time International Ratio 1.0 RATIO Activated Partial Thromboplast Time 20.3 SEC Blood Urea Nitrogen 47 MG/DL 41 MG/DL Creatinine 2.19 MG/DL 1.81 MG/DL Random Glucose 140 MG/DL 173 MG/DL Total Protein 7.1 GM/DL Albumin 2.6 GM/DL Calcium Level 8.5 MG/DL 8.8 MG/DL Alkaline Phosphatase 89 U/L Aspartate Amino Transf (AST/SGOT) 16 U/L Alanine Aminotransferase (ALT/SGPT) 13 U/L Total Bilirubin 0.2 MG/DL Sodium Level 142 MEQ/L 143 MEQ/L Potassium Level 4.4 MEQ/L 4.0 MEQ/L Chloride Level 113 MEQ/L 114 MEQ/L Carbon Dioxide Level 20.5 MEQ/L 19.1 MEQ/L Anion Gap 9 MEQ/L 10 MEQ/L Estimat Glomerular Filtration Rate 29 ML/MIN 36 ML/MIN Urine Color RED Urine Turbidity CLOUDY Urine pH 7.5 Urine Specific [place] 1.026 Urine Protein GREATER THAN 600 mg/dL Urine Glucose (UA) TRACE mg/dL Urine Ketones NEG mg/dL Urine Occult Blood LARGE Urine Nitrite NEG Urine Bilirubin NEG Urine Urobilinogen LESS THAN 2.0 MG/DL Urine Leukocyte Esterase SMALL Urine RBC /hpf Urine WBC 21 /hpf Urine WBC Clumps OCC Urine Bacteria FEW /hpf Urine Mucus MANY /lpf Microscopic Urinalysis Comment CULTURE INDICATED Magnesium Level 1.7 MG/DL Objective Remarks GENERAL: NAD, AAOx3 CARDIO: Regular. RESP: CTA bilaterally. No wheezes, rales, or rhonchi. ABD: +BS, soft, non-tender, nondistended. EXT: Extremities without clubbing, cyanosis, or edema. 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 He follows with Dr. Maldonado. Pt recently had a cystoscopy with reported cauterization about [address] Maldonado. Recurrent Hematuria Metastatic urothelial bladder cancer Symptomatic anemia - Around 1 week ago pt started having some hematuria then two days ago he stared having increased hematuria with blood clots. He has some dysuria with passing the large blood clots. Pt started having some generalized weakness and reported to the ED at [facility] [place] on 10/12/17 for evaluation. - Pts labs at admission noted Hgb 7.6/Hct 23.4. - Pt was transfused 2 units PRBCs on 10/12 - Repeat H/H on with Hgb 9.6/Hct 28.1 - He has a cystoscopy with stent exchange planned for 10/14/16, with Dr. Maldonado. - Pt does not seem to have any UTI symptoms. - Pt encouraged to drink plenty of fluids - Pt planned for discharge today and is to followup with Dr. Maldonado tomorrow. - Should the bleeding worsen or the pt become symptomatic with dizziness, lightheadedness, SOB, chest pain, palpitations, etc. HTN - Home meds continued - Clonidine PRN CKD, stage 4 - Labs improved on 10/13/17 after pt received some volume resuscitation with transfusion. BPH - Home meds continued Hypothyroidism - Home meds continued Recurrent DVT in 07/2017 - Pt had IVC filter placed in 07/2017. He could not tolerate anticoagulants due to hematuria. (2) Symptomatic anemia ICD Codes: D64.9 - Anemia, unspecified Status: Acute (3) Metastatic urothelial carcinoma ICD Codes: C79.10 - Secondary malignant neoplasm of unspecified urinary organs Status: Chronic (4) HTN (hypertension), benign ICD Codes: I10 - Essential (primary) hypertension Status: Chronic (5) Hypothyroidism ICD Codes: E03.9 - Hypothyroidism, unspecified Status: Chronic (6) Hyperlipidemia ICD Codes: E78.5 - Hyperlipidemia, unspecified Status: Chronic Assessment and Plan Patient examined. Assessment and plan formulated with Jessenia Ramsey PA-C. I agree with the above. Jessenia Ramsey Oct 13, 2017 13:19 Dustin Moreno DO Oct 17, 2017 00:52
--- NOTE | 2017-10-13 13:21 | HHI.DCPOC ---
Discharge Care Plan Diagnosis: (1) Hematuria, gross (2) Metastatic urothelial carcinoma (3) HTN (hypertension), benign (4) Hypothyroidism (5) Hyperlipidemia (6) Symptomatic anemia Goals to Promote Your Health * To prevent worsening of your condition and complications * To maintain your health at the optimal level Directions to Meet Your Goals Take your medications as prescribed Follow your dietary instruction Follow activity as directed Keep your appointments as scheduled Take your immunizations and boosters as scheduled If your symptoms worsen call your PCP, if no PCP go to Urgent Care Center or Emergency Room Smoking is Dangerous to Your Health. Avoid second hand smoke Call the 24-hour hour crisis hotline for domestic abuse at Jessenia Ramsey Oct 13, 2017 13:21 Dustin Moreno DO Oct 17, 2017 00:53
== END 2017-10-13 14:42 | disposition home or self-care (01) ==
LOC: NEPE 10:35 → NEDA 12:40 → NEPGCP 14:27
PROVIDERS: ADMIT Hospitalist; ATTEND Hospitalist
DX: C67.9 Malignant neoplasm of bladder, unspecified (principal); N18.4 Chronic kidney disease, stage 4 (severe); I12.9 Hypertensive chronic kidney disease with stage 1 through stage 4 chronic kidney disease, or unspecified chronic kidney disease; E03.9 Hypothyroidism, unspecified; E78.5 Hyperlipidemia, unspecified; D64.9 Anemia, unspecified; R06.02 Shortness of breath; R53.1 Weakness; Z79.899 Other long term (current) drug therapy; B96.89 Other specified bacterial agents as the cause of diseases classified elsewhere; N30.01 Acute cystitis with hematuria
CPT/HCPCS: 36430; 80048; 80053; 81001; 83735; 85007; 85027; 85610; 85730; 86077; 86403; 86850; 86860; 86870; 86900; 86901; 86902; 86920; 86921; 86922; 87077; 87086; 87186; 96361; 96365; 99285; G0378; J0696; J7050; P9016

== ENCOUNTER 2017-10-16 07:43 | Inpatient (IN) | payer MEDICARE ==
[~2017-10-16] VITALS: Ht 177.8 cm; Wt 83.9 kg
[2017-10-16] VITALS (13 sets, daily range): BP systolic 125–156; BP diastolic 64–75; PULSE 76–100; RESP 18–20; TEMP 97.8–98.6; O2SAT 96–100
[~2017-10-16 07:43] MED LIST changes: +ASCO100029; -CYAN100017 PO; +TEMA15CA PO; -URIB118C; -WALKER WHEELS/F1 MIS
--- NOTE | 2017-10-16 07:59 | PD ---
HPI Chief Complaint: General Weakness Time Seen by Provider: 07:53 Travel History International Travel<30 days: No Contact w/Intl Traveler<30days: No Traveled to known affect area: No History of Present Illness HPI 82-year-old male patient with history of bladder cancer currently on radiation and chemotherapy with urologist Dr. Machado in [place], presents to the ER today because he is feeling more weak, states that he had his catheter removed yesterday, and he does not remember the last time he urinated, has been urinating blood. He denies any fevers, vomiting, chest pains, or other symptoms. Modifying Factors: None Associated Signs & Symptoms: General weakness, blood in the urine Risk Factors: Bladder cancer, catheter removed yesterday PFSH Past Medical History Arthritis: Yes (Left Shoulder) Asthma: No Autoimmune Disease: No Blood Disorders: No Anxiety: No Depression: No Heart Rhythm Problems: No Cancer: Yes (BLADDER) Cardiovascular Problems: Yes High Cholesterol: No Chemotherapy: Yes Chest Pain: No Congestive Heart Failure: No COPD: No Cerebrovascular Accident: No Diabetes: No Diminished Hearing: No Endocrine: Yes GERD: No Glaucoma: No Genitourinary: Yes (BLADDER CANCER) Hepatitis: No Hiatal Hernia: No Hypertension: Yes Immune Disorder: No Kidney Stones: No Musculoskeletal: Yes (ARTHRITIS) Neurologic: No Psychiatric: No Reproductive: No Respiratory: No Immunizations Current: No Migraines: No Radiation Therapy: Yes Renal Failure: Yes Seizures: No Sickle Cell Disease: No Sleep Apnea: No Thyroid Disease: Yes (HYPOTHYROIDISM) Ulcer: No Past Surgical History Abdominal Surgery: Yes (hernia repair) AICD: No Arteriovenous Shunt: No Cardiac Surgery: No Ear Surgery: No Endocrine Surgery: No Eye Surgery: Yes (sx for double vision left eye) Genitourinary Surgery: Yes (KIDNEY STENTS ) Gynecologic Surgery: No Insulin Pump: No Joint Replacement: No Neurologic Surgery: No Oral Surgery: No Pacemaker: No Thoracic Surgery: No Other Surgery: Yes Social History Alcohol Use: Yes (occ) Tobacco Use: No Substance Use: No Allergies-Medications (Allergen,Severity, Reaction): Coded Allergies: No Known Allergies (Verified Allergy, Unknown, 10/16/17) Reported Meds & Prescriptions Reported Meds & Active Scripts Active Reported Temazepam 15 Mg Cap 15 Mg PO HS PRN Vitamin C (Ascorbic Acid) 1,000 Mg Tablet.er Uribel (Thyszwvywth-Kpvdx-Pdhbbfwgt Blue) 1 Cap 2 Cap PO DAILY B12 (Cyanocobalamin) 1,000 Mcg Tab DAILY Zinc (Zinc Gluconate) 50 Mg Tab 1 Tab PO DAILY Magnesium 200 Mg Tab 250 Mg PO DAILY Proscar (Finasteride) 5 Mg Tab 5 Mg PO DAILY Do not crush. Tamsulosin (Tamsulosin HCl) 0.4 Mg Cap 0.4 Mg PO HS Amlodipine (Amlodipine Besylate) 10 Mg Tab 10 Mg PO DAILY Levothyroxine (Levothyroxine Sodium) 125 Mcg Tab 125 Mcg PO DAILY Review of Systems Except as stated in HPI: all other systems reviewed are Neg Physical Exam Narrative GENERAL: Well-developed elderly white male patient currently in moderate distress, mildly in respiratory distress. Awake and oriented 3. SKIN: Focused skin assessment: Pale, dry. HEAD: Atraumatic. Normocephalic. EYES: Pupils equal and round. No scleral icterus. No injection or drainage. ENT: No nasal bleeding or discharge. Mucous membranes pink and moist. NECK: Trachea midline. No JVD. Supple. CARDIOVASCULAR: Regular rate and rhythm. No murmur appreciated. RESPIRATORY: No accessory muscle use. Clear to auscultation. Breath sounds equal bilaterally. GASTROINTESTINAL: Abdomen soft, non-tender, nondistended. Hepatic and splenic margins not palpable. MUSCULOSKELETAL: No obvious deformities. No clubbing. No cyanosis. No edema. NEUROLOGICAL: Awake and alert. No obvious cranial nerve deficits. Motor grossly within normal limits. Normal speech. PSYCHIATRIC: Appropriate mood and affect; insight and judgment normal. Data Data Last Documented VS Vital Signs Date Time Temp Pulse Resp B/P (MAP) Pulse Ox O2 Delivery O2 Flow Rate FiO2 10/16/17 08:56 17 10/16/17 07:56 100 Room Air 10/16/17 07:48 97.8 100 153/72 (99) Orders Orders Electrocardiogram (10/16/17 07:53) Complete Blood Count With Diff (10/16/17 07:53) Comprehensive Metabolic Panel (10/16/17 07:53) Magnesium (Mg) (10/16/17 07:53) Ckmb (Isoenzyme) Profile (10/16/17 07:53) Troponin I (10/16/17 07:53) Act Partial Throm Time (Ptt) (10/16/17 07:53) Prothrombin Time / Inr (Pt) (10/16/17 07:53) Urinalysis - C+S If Indicated (10/16/17 07:53) Ecg Monitoring (10/16/17 07:53) Iv Access Insert/Monitor (10/16/17 07:53) Oximetry (10/16/17 07:53) Sodium Chloride 0.9% Flush (Ns Flush) (10/16/17 08:00) Urinary Catheter Insert/Apply (10/16/17 07:53) Type And Screen (10/16/17 07:53) Hydromorphone Pf Inj (Dilaudid Pf Inj) (10/16/17 08:30) Red Blood Cells (Rbc) (10/16/17 08:34) Blood Product Administration (10/16/17 08:34) Sodium Chlor 0.9% 250 Ml Inj (Ns 250 Ml (10/16/17 08:45) Admit To Inpatient (10/16/17 ) Code Status (10/16/17 09:11) Vital Signs (Adult) Q4H (10/16/17 09:11) Activity Oob With Assistance (10/16/17 09:11) Diet Heart Healthy (10/16/17 Breakfast) Sodium Chloride 0.9% Flush (Ns Flush) (10/16/17 09:15) Sodium Chloride 0.9% Flush (Ns Flush) (10/16/17 21:00) Acetaminophen (Tylenol) (10/16/17 09:15) Ondansetron Inj (Zofran Inj) (10/16/17 09:15) Basic Metabolic Panel (Bmp) (10/17/17 06:00) Complete Blood Count With Diff (10/17/17 06:00) Chest, Single Ap (10/16/17 09:11) Electrocardiogram (10/16/17 09:11) Pt Request For Service (10/16/17 09:11) Scd Bilateral/Knee High JUDITH.BID (10/16/17 09:11) Naloxone Inj (Narcan Inj) (10/16/17 09:15) Magnesium Hydroxide Liq (Milk Of Magnesi (10/16/17 09:15) Inpatient Certification (10/16/17 ) Amlodipine (Norvasc) (10/17/17 09:00) Finasteride (Proscar) (10/17/17 09:00) Levothyroxine (Synthroid) (10/17/17 09:00) Tamsulosin (Flomax) (10/16/17 21:00) (Nf) Ydmzzejjcqg-Dezxa-Kanfpmqci Blue (U (10/17/17 09:00) Admit Order (Ed Use Only) (10/16/17 09:20) Labs Laboratory Tests Test 10/16/17 08:00 White Blood Count 11.1 TH/MM3 Red Blood Count 1.89 MIL/MM3 Hemoglobin 6.1 GM/DL Hematocrit 18.4 % Mean Corpuscular Volume 97.2 FL Mean Corpuscular Hemoglobin 32.2 PG Mean Corpuscular Hemoglobin Concent 33.2 % Red Cell Distribution Width 17.5 % Platelet Count 289 TH/MM3 Mean Platelet Volume 7.0 FL Neutrophils (%) (Auto) 79.7 % Lymphocytes (%) (Auto) 12.0 % Monocytes (%) (Auto) 6.0 % Eosinophils (%) (Auto) 1.7 % Basophils (%) (Auto) 0.6 % Neutrophils # (Auto) 8.9 TH/MM3 Lymphocytes # (Auto) 1.3 TH/MM3 Monocytes # (Auto) 0.7 TH/MM3 Eosinophils # (Auto) 0.2 TH/MM3 Basophils # (Auto) 0.1 TH/MM3 CBC Comment AUTO DIFF Differential Total Cells Counted 100 Neutrophils % (Manual) 73 % Band Neutrophils % 8 % Lymphocytes % 15 % Monocytes % 1 % Eosinophils % 1 % Neutrophils # (Manual) 9.2 TH/MM3 Metamyelocytes 1 % Myelocytes 1 % Nucleated Red Blood Cells 2 /100 WBC Differential Comment FINAL DIFF MANUAL Platelet Estimate NORMAL Platelet Morphology Comment NORMAL MDM Medical Decision Making Medical Screen Exam Complete: Yes Emergency Medical Condition: Yes Medical Record Reviewed: Yes Interpretation(s) EKG shows normal sinus rhythm at a rate of 90 bpm with a right bundle branch block pattern. Laboratory Tests Test 10/16/17 08:00 White Blood Count 11.1 TH/MM3 (4.0-11.0) Red Blood Count 1.89 MIL/MM3 (4.50-5.90) Hemoglobin 6.1 GM/DL (13.0-17.0) Hematocrit 18.4 % (39.0-51.0) Red Cell Distribution Width 17.5 % (11.6-17.2) Neutrophils (%) (Auto) 79.7 % (16.0-70.0) Neutrophils # (Auto) 8.9 TH/MM3 (1.8-7.7) Neutrophils % (Manual) 73 % (16-70) Band Neutrophils % 8 % (0-6) Neutrophils # (Manual) 9.2 TH/MM3 (1.8-7.7) Myelocytes 1 % (0-0) Nucleated Red Blood Cells 2 /100 WBC (0-0) Differential Diagnosis General weakness, hematuria: Symptomatic anemia versus UTI versus sepsis versus dehydration versus metabolic issues Narrative Course Lab work returns showing significant anemia with hemoglobin of 6. 2 units of PRBCs were ordered the patient and he is likely to need more. Pena catheter was placed draining bloody urine. My plan would be to admit the patient for further treatment of the anemia and further treatment of his bladder cancer. Case was discussed with Dr. Moreno for admission. Diagnosis Primary Impression: Symptomatic anemia Additional Impressions: Hematuria Metastatic urothelial carcinoma Admitting Information Admitting Physician Requests: Admit Mary Carmen Menendez MD Oct 16, 2017 07:59
[2017-10-16] MEDS: SODIUM CHLORIDE 0.9% FLUSH 10 ML FLUSH IVF PRN ×2 (08:07→08:27)
[2017-10-16 08:30] LABS: AUTOMATED NEUTROPHIL # 8.9 TH/MM3 (1.8-7.7); BASOPHIL # 0.1 TH/MM3 (0-0.2); BASOPHIL % 0.6 % (0.0-2.0); EOSINOPHIL # 0.2 TH/MM3 (0-0.4); EOSINOPHIL % 1.7 % (0.0-4.0); LYMPHOCYTE # 1.3 TH/MM3 (1.0-4.8); MEAN CELL VOLUME 97.2 FL (80.0-100.0); MEAN CORPUSCULAR HEMOGLOBIN 32.2 PG (27.0-34.0); MEAN CORPUSCULAR HGB CONC 33.2 % (32.0-36.0); MONOCYTE # 0.7 TH/MM3 (0-0.9); NEUT % 79.7 % (16.0-70.0); PLATELET COUNT 289 TH/MM3 (150-450); RED BLOOD COUNT 1.89 MIL/MM3 (4.50-5.90); RED CELL DISTRIBUTION WIDTH 17.5 % (11.6-17.2); WHITE BLOOD COUNT 11.1 TH/MM3 (4.0-11.0)
[2017-10-16] MEDS ORDERED: HYDROmorphone HCL PF 2 MG/ML VIAL IV PUSH ONE (08:30)
[2017-10-16 08:36] LABS: HEMATOCRIT 18.4 % (39.0-51.0); HEMOGLOBIN 6.1 GM/DL (13.0-17.0)
[2017-10-16] MEDS ORDERED: SODIUM CHLOR 0.9% 250 ML INJ 250 ML IV ONE (08:45)
[2017-10-16 09:10] LABS: BANDS 8 % (0-6); CORRECTED NUCLEATED RBC 2 /100 WBC (0-0); LYMPHOCYTES 15 % (9-44); METAMYELOCYTES 1 % (0-1); MONOCYTES 1 % (0-8); MYELOCYTES 1 % (0-0); NEUTROPHIL # MANUAL DIFF 9.2 TH/MM3 (1.8-7.7); NUCLEATED RED BLOOD CELL 2 (0-0); POLYS (SEG NEUTROPHILS) 73 % (16-70)
[2017-10-16] MEDS ORDERED: ONDANSETRON HCL 4 MG/2 ML VIAL IVP PRN (09:15)
[2017-10-16] MEDS ORDERED: NALOXONE HCL 0.4 MG/ML AMP IV PUSH PRN (09:15)
[2017-10-16] MEDS ORDERED: SODIUM CHLORIDE 0.9% FLUSH 10 ML FLUSH IV FLUSH PRN (09:15)
[2017-10-16] MEDS ORDERED: ACETAMINOPHEN 325 MG TAB PO PRN (09:15)
[2017-10-16 09:18] LABS: URINE COLOR RED (YELLW/STRAW)
[2017-10-16 09:19] LABS: BILIRUBIN, URINE NEG (NEG); GLUCOSE,URINE TRACE mg/dL (NEG); KETONE, URINE NEG (NEG)
[2017-10-16 09:20] LABS: BLOOD, URINE LARGE (NEG); MUCUS URINE OCC /lpf (OCC); NITRITE,URINE NEG (NEG); URINE LEUKOCYTE ESTERASE NEG (NEG); WHITE BLOOD CELL CLUMPS FEW
[2017-10-16 09:21] LABS: BACTERIA, URINE FEW /hpf; SQUAMOUS EPITHELIAL CELL URINE 9 /hpf (0-5)
[2017-10-16 09:22] LABS: INTERNATIONAL NORMALIZED RATIO 1.1 RATIO; PROTHROMBIN TIME - PATIENT 10.8 SEC (9.8-11.6)
[2017-10-16 09:43] LABS: ALBUMIN 2.3 GM/DL (3.4-5.0); ALKALINE PHOSPHATASE 56 U/L (45-117); ALT (GPT) 9 U/L (12-78); BICARBONATE 17.7 MEQ/L (21.0-32.0); CHLORIDE 109 MEQ/L (98-107); CREATININE 3.37 MG/DL (0.60-1.30); GLOMERULAR FILTRATION RATE 18 ML/MIN (>89); GLUCOSE,RANDOM 144 MG/DL (74-106); MAGNESIUM 1.9 MG/DL (1.5-2.5); SODIUM (NA) 138 MEQ/L (136-145); TOTAL BILIRUBIN ADULT 0.2 MG/DL (0.2-1.0); TOTAL PROTEIN 5.7 GM/DL (6.4-8.2)
[2017-10-16 09:44] LABS: AST (GOT) 12 U/L (15-37); BLOOD UREA NITROGEN 58 MG/DL (7-18)
--- NOTE | 2017-10-16 09:46 | RADRPT ---
EXAM DATE/TIME: 10/16/2017 09:18 [facility] COMPARISON: CHEST SINGLE AP, February 21, 2017, 9:11. INDICATIONS : Nausea, pain in bladder and lower back. MEDICAL HISTORY : Hypertension. Hypothyroidism. hyperlipidema, chronic dvt, PE. Metastatic urothelial bladder ca. hydronephrosis SURGICAL HISTORY : bilateral ureterial stents, hernia repair, varicose vein surgeryligament strabismus repair ENCOUNTER: Initial ACUITY: 1 day PAIN SCORE: Non-responsive. LOCATION: Bilateral chest FINDINGS: The cardiac silhouette is enlarged in transverse diameter. There is prominence of the aortic knob is with calcification characteristic of atherosclerotic vascular disease. The lungs are free of acute pa renchymal opacity. No effusions are identified. CONCLUSION: 1. Cardiomegaly. No acute pulmonary disease. Ron Lopez MD on October 16, 2017 at 9:43 Board Certified Radiologist. This report was verified electronically.
[2017-10-16 09:58] LABS: TROPONIN I 0.03 NG/ML (0.02-0.05)
--- NOTE | 2017-10-16 10:30 | HHI.HP ---
HPI [facility] Primary Care Physician Jasmeet Farah MD Admission Diagnosis severe anemia/hematuria Chief Complaint: abdominal pain Travel History International Travel<30 Days: No Contact w/Intl Traveler <30 Da: No Traveled to Known Affected Are: No History of Present Illness Mr. 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 He follows with Dr. Maldonado. Pt had a cystoscopy with reported cauterization about [address] Maldonado. Patient was recently admitted to [facility] on 10/12/17 for hematuria discharged with skinner. Patient then had Skinner catheter removed and bladder irrigation on . He denies any fevers or chills, back pain, nausea/vomiting, chest pain, SOB , palpitations, or dizziness. Pts labs at admission noted Hgb 6.1/Hct 18.4. Pt is being admitted for for transfusion and urology evaluation. Review of Systems Constitutional: COMPLAINS OF: Fatigue, DENIES: Fever, Chills Eyes: DENIES: Blurred vision, Diplopia, Vision loss Respiratory: DENIES: Cough, Sputum production, Shortness of breath Cardiovascular: DENIES: Chest pain, Palpitations, Dyspnea on Exertion, Lower Extremity Edema Gastrointestinal: DENIES: Abdominal pain, Constipation, Diarrhea, Nausea, Vomiting Genitourinary: COMPLAINS OF: Hematuria Integumentary: COMPLAINS OF: Abnormal pigmentation (rash left buttocks ) Neurologic: DENIES: Headache, Localized weakness, Seizures, Poor Balance Psychiatric: DENIES: Anxiety, Confusion, Depression Past Family Social History Past Medical History CKD, stage 4, Cr typically between 2-2.3 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, on Opdivo Hydronephrosis due to ureteral stricture and currently with bilateral stents in place Recurrent hematuria 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 s/p IVC filter placement Hx of PE HTN Hyperlipidemia Diabetes mellitus, Hgb A1C 5.1% on 08/20/17 Hypothyroidism Chronic anemia Cataracts Past Surgical History IVC filter placed in 07/2017 Cystoscopy with ureteral stent placement Bilateral cataract surgery Hernia repair Varicose vein ligation Strabismus repair Reported Medications Temazepam 15 Mg Cap 15 Mg PO HS PRN Vitamin C (Ascorbic Acid) 1,000 Mg Tablet.er Uribel (Dahpjjjqinc-Edknz-Ozjqqbeur Blue) 1 Cap 2 Cap PO DAILY B12 (Cyanocobalamin) 1,000 Mcg Tab DAILY Zinc (Zinc Gluconate) 50 Mg Tab 1 Tab PO DAILY Magnesium 200 Mg Tab 250 Mg PO DAILY Proscar (Finasteride) 5 Mg Tab 5 Mg PO DAILY Do not crush. Tamsulosin (Tamsulosin HCl) 0.4 Mg Cap 0.4 Mg PO HS Amlodipine (Amlodipine Besylate) 10 Mg Tab 10 Mg PO DAILY Levothyroxine (Levothyroxine Sodium) 125 Mcg Tab 125 Mcg PO DAILY Allergies: Coded Allergies: No Known Allergies (Verified Allergy, Unknown, 10/16/17) Active Ordered Medications Current Medications Medications (Trade) Dose Ordered Sig/Trisha Route Start Time Stop Time Status Last Admin (NS Flush) 2 ml UNSCH PRN IVF 10/16/17 08:00 10/16/17 08:27 Sodium Chloride 250 ml @ 15 mls/hr ONCE ONCE IV 10/16/17 08:45 10/17/17 01:24 (NS Flush) 2 ml UNSCH PRN IV FLUSH 10/16/17 09:15 UNV (NS Flush) 2 ml BID IV FLUSH 10/16/17 21:00 UNV (Tylenol) 650 mg Q4H PRN PO 10/16/17 09:15 UNV (Zofran Inj) 4 mg Q6H PRN IVP 10/16/17 09:15 UNV (Narcan Inj) 0.4 mg UNSCH PRN IV PUSH 10/16/17 09:15 UNV (Milk Of Magnesia Liq) 30 ml Q12H PRN PO 10/16/17 09:15 UNV (Norvasc) 10 mg DAILY PO 10/17/17 09:00 UNV (Proscar) 5 mg DAILY PO 10/17/17 09:00 UNV (Synthroid) 125 mcg DAILY PO 10/17/17 09:00 UNV (Flomax) 0.4 mg HS PO 10/16/17 21:00 UNV Non-Formulary Medication 2 cap DAILY PO 10/17/17 09:00 UNV Family History Father with hx of Leukemia Social History Denies any alcohol, tobacco or illicit drug use Physical Exam Vital Signs Vital Signs Date Time Temp Pulse Resp B/P (MAP) Pulse Ox O2 Delivery O2 Flow Rate FiO2 10/16/17 09:45 97.9 77 18 125/64 (84) 98 Room Air 10/16/17 08:56 17 10/16/17 07:56 18 100 Room Air 10/16/17 07:55 18 100 Room Air 10/16/17 07:48 97.8 100 18 153/72 (99) 100 Physical Exam GENERAL: This is a well-nourished, well-developed patient, in no apparent distress. SKIN: erythematous rash on right buttock in dermatomal pattern HEENT: Atraumatic. Normocephalic. No temporal or scalp tenderness. No scleral icterus. Airway patent. NECK: Trachea midline, supple, nontender. CARDIO: Regular. RESP: CTA bilaterally. No wheezes, rales, or rhonchi. ABD: +BS, soft, non-tender, nondistended. GENITAL URINARY: skinner in place draining bloody urine EXT: Extremities without clubbing, cyanosis, or edema. NEURO: Awake and alert. Motor and sensory grossly within normal limits. Normal speech. Laboratory Laboratory Tests Test 10/16/17 08:00 10/16/17 08:45 White Blood Count 11.1 Red Blood Count 1.89 Hemoglobin 6.1 Hematocrit 18.4 Mean Corpuscular Volume 97.2 Mean Corpuscular Hemoglobin 32.2 Mean Corpuscular Hemoglobin Concent 33.2 Red Cell Distribution Width 17.5 Platelet Count 289 Mean Platelet Volume 7.0 Neutrophils (%) (Auto) 79.7 Lymphocytes (%) (Auto) 12.0 Monocytes (%) (Auto) 6.0 Eosinophils (%) (Auto) 1.7 Basophils (%) (Auto) 0.6 Neutrophils # (Auto) 8.9 Lymphocytes # (Auto) 1.3 Monocytes # (Auto) 0.7 Eosinophils # (Auto) 0.2 Basophils # (Auto) 0.1 CBC Comment AUTO DIFF Differential Total Cells Counted 100 Neutrophils % (Manual) 73 Band Neutrophils % 8 Lymphocytes % 15 Monocytes % 1 Eosinophils % 1 Neutrophils # (Manual) 9.2 Metamyelocytes 1 Myelocytes 1 Nucleated Red Blood Cells 2 Differential Comment FINAL DIFF MANUAL Platelet Estimate NORMAL Platelet Morphology Comment NORMAL Prothrombin Time 10.8 Prothromb Time International Ratio 1.1 Activated Partial Thromboplast Time 21.6 Urine Color RED Urine Turbidity MARKED Urine pH 8.0 Urine Specific [place] 1.031 Urine Protein GREATER THAN 600 Urine Glucose (UA) TRACE Urine Ketones NEG Urine Occult Blood LARGE Urine Nitrite NEG Urine Bilirubin NEG Urine Urobilinogen LESS THAN 2.0 Urine Leukocyte Esterase NEG Urine RBC Urine WBC Urine WBC Clumps FEW Urine Squamous Epithelial Cells 9 Urine Bacteria FEW Urine Mucus OCC Microscopic Urinalysis Comment CULTURE INDICATED Blood Urea Nitrogen 58 Creatinine 3.37 Random Glucose 144 Total Protein 5.7 Albumin 2.3 Calcium Level 8.0 Magnesium Level 1.9 Alkaline Phosphatase 56 Aspartate Amino Transf (AST/SGOT) 12 Alanine Aminotransferase (ALT/SGPT) 9 Total Bilirubin 0.2 Sodium Level 138 Potassium Level 4.2 Chloride Level 109 Carbon Dioxide Level 17.7 Anion Gap 11 Estimat Glomerular Filtration Rate 18 Total Creatine Kinase 118 Creatine Kinase MB 5.6 Troponin I 0.03 Date/Time Source Procedure Growth Status 10/16/17 08:00 Urine Random Urine Urine Culture Pending Received Result Diagram: 10/16/17 0800 10/16/17 0845 Imaging Last Impressions Chest X-Ray 10/16/17 0911 Signed Impressions: Service Date/Time: October 09:18 - CONCLUSION: 1. Cardiomegaly. No acute pulmonary disease. MD Katie Valentino VTE Risk Assessment Caprini VTE Risk Assessment: No/Low Risk (score <= 1) Caprini Risk Assessment Model Point Value = 1 Point Value = 2 Point Value = 3 Point Value = 5 Age 41-60 Minor surgery BMI > 25 kg/m2 Swollen legs Varicose veins or History of unexplained or recurrent spontaneous Oral contraceptives or hormone replacement Sepsis (< 1 month) Serious lung disease, including pneumonia (< 1 month) Abnormal pulmonary function Acute myocardial infarction Congestive heart failure (< 1 month) History of inflammatory bowel disease Medical patient at bed rest Age 61-74 Arthroscopic surgery Major open surgery (> 45 min) Laparoscopic surgery (> 45 min) Malignancy Confined to bed (> 72 hours) Immobilizing plaster cast Central venous access Age >= 75 History of VTE Family history of VTE Factor V Leiden Prothrombin [id number] Lupus anticoagulant Anticardiolipin antibodies Elevated serum homocysteine Heparin-induced thrombocytopenia Other congenital or acquired thrombophilia Stroke (< 1 month) Elective arthroplasty Hip, pelvis, or leg fracture Acute spinal cord injury (< 1 month) Prophylaxis Regimen Total Risk Factor Score Risk Level Prophylaxis Regimen 0-1 Low Early ambulation 2 Moderate Order ONE of the following: *Sequential Compression Device (SCD) *Heparin 5000 units SQ BID 3-4 Higher Order ONE of the following medications: *Heparin 5000 units SQ TID *Enoxaparin/Lovenox 40 mg SQ daily (WT < 150 kg, CrCl > 30 mL/min) *Enoxaparin/Lovenox 30 mg SQ daily (WT < 150 kg, CrCl > 10-29 mL/min) *Enoxaparin/Lovenox 30 mg SQ BID (WT < 150 kg, CrCl > 30 mL/min) AND/OR *Sequential Compression Device (SCD) 5 or more Highest Order ONE of the following medications: *Heparin 5000 units SQ TID (Preferred with Epidurals) *Enoxaparin/Lovenox 40 mg SQ daily (WT < 150 kg, CrCl > 30 mL/min) *Enoxaparin/Lovenox 30 mg SQ daily (WT < 150 kg, CrCl > 10-29 mL/min) *Enoxaparin/Lovenox 30 mg SQ BID (WT < 150 kg, CrCl > 30 mL/min) AND *Sequential Compression Device (SCD) Assessment and Plan Problem List: (1) Bladder outlet obstruction ICD Codes: N32.0 - Bladder-neck obstruction Status: Acute Plan: Pt is an 82 y/o male with CKD, stage 4, 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 He follows with Dr. Maldonado. Pt had a cystoscopy with reported cauterization about [address] Maldonado. Patient was recently admitted to [facility] on 10/12/17 for . Patient then had Skinner catheter removed and bladder irrigation on 10/15/16. Patient returned to ER 10/16/17 with abdominal pain secondary to urinary obstruction. Pts labs at admission noted Hgb 6.1/Hct 18.4. Pt is being admitted for for transfusion and urology evaluation. Skinner catheter placed in ER draining bloody urine Consult Urology Patient seen by Dr. Thorne recommends continue skinner catheter with irrigation as needed (2) Abdominal pain ICD Codes: R10.9 - Unspecified abdominal pain Status: Acute Plan: see above (3) Symptomatic anemia ICD Codes: D64.9 - Anemia, unspecified Status: Acute Plan: - Pts labs at admission noted Hgb 6.1/Hct 18.4 - Transfuse 2 units PRBCs (4) Metastatic urothelial carcinoma ICD Codes: C79.10 - Secondary malignant neoplasm of unspecified urinary organs Status: Chronic (5) Acute kidney injury superimposed on CKD ICD Codes: N17.9 - Acute kidney failure, unspecified; N18.9 - Chronic kidney disease, unspecified Status: Acute Plan: Elevated renal function likely secondary retention On admission BUN 55 creatinine 3.37 estimated GFR 18 Skinner catheter placed and draining IV fluids monitor renal function (6) Recurrent deep vein thrombosis (DVT) ICD Codes: I82.409 - Acute embolism and thrombosis of unspecified deep veins of unspecified lower extremity Plan: - Pt had IVC filter placed in 07/2017. He could not tolerate anticoagulants due to hematuria. (7) HTN (hypertension), benign ICD Codes: I10 - Essential (primary) hypertension Status: Chronic Plan: - Home meds continued - Clonidine PRN (8) Hypothyroidism ICD Codes: E03.9 - Hypothyroidism, unspecified Status: Chronic Plan: - Home meds continued (9) Shingles ICD Codes: B02.9 - Zoster without complications Status: Acute Plan: start Valtrex Assessment and Plan Patient examined. Assessment and plan formulated with Malu Trotter PA-C. I agree with the above. Physician Certification 2 Midnight Certification Type: Admission for Inpatient Services Order for Inpatient Services The services are ordered in accordance with Medicare regulations or non- Medicare payer requirements, as applicable. In the case of services not specified as inpatient-only, they are appropriately provided as inpatient services in accordance with the 2-midnight benchmark. Estimated LOS (days): 3 days is the estimated time the patient will need to remain in the hospital, assuming treatment plan goals are met and no additional complications. Post-Hospital Plan: Home Health Malu Trotter Oct 16, 2017 10:30 Dustin Moreno DO Oct 22, 2017 23:58
--- NOTE | 2017-10-16 13:09 | PD.CONS ---
[facility] Service Urology Consult Requested By Dr. Moreno Reason for Consult Gross hematuria Primary Care Physician Jasmeet Farah MD Diagnosis: (1) Bladder outlet obstruction ICD Code: N32.0 - Bladder-neck obstruction (2) Abdominal pain ICD Code: R10.9 - Unspecified abdominal pain (3) Symptomatic anemia ICD Code: D64.9 - Anemia, unspecified (4) Metastatic urothelial carcinoma ICD Code: C79.10 - Secondary malignant neoplasm of unspecified urinary organs (5) Recurrent deep vein thrombosis (DVT) ICD Code: I82.409 - Acute embolism and thrombosis of unspecified deep veins of unspecified lower extremity (6) CKD (chronic kidney disease) stage 4, GFR 15-29 ml/min ICD Code: N18.4 - Chronic kidney disease, stage 4 (severe) (7) HTN (hypertension), benign ICD Code: I10 - Essential (primary) hypertension (8) Hypothyroidism ICD Code: E03.9 - Hypothyroidism, unspecified History of Present Illness 82-year-old gentleman with history 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 Chetan Maldonado and is status post placement of bilateral ureteral stents. Patient also is under the care of Dr. Arnaldo Machado and being managed with Opdivo. Patient reports that he was evaluated by Dr. Maldonado earlier this week and underwent cystoscopy with fulguration of bleeding sites. An indwelling catheter was not left in place and the patient subsequently developed gross hematuria and presented to the emergency room where by he was found to be markedly anemic. Patient was admitted for stabilization of his present medical condition and a urology consult was placed regarding the ongoing hematuria. At the time of consultation the patient was resting quietly in bed and not in any apparent distress. Past medical history includes chronic kidney disease and recurrent DVT with placement of an IVC filter. Review of Systems Constitutional: DENIES: Fever, Chills Cardiovascular: DENIES: Chest pain Gastrointestinal: DENIES: Abdominal pain Genitourinary: COMPLAINS OF: Hematuria, DENIES: Dysuria Except as stated in HPI: all other systems reviewed are Neg Past Family Social History Past Medical History Metastatic bladder cancer Chronic kidney disease Recurrent DVT Pulmonary embolism Hypertension Hyperlipidemia Diabetes mellitus Hypothyroidism Chronic anemia Cataracts Past Surgical History Status post bilateral ureteral stent placement Status post cystoscopy with fulguration of bleeding site Status post placement of IVC filter Status post bilateral cataract surgery Status post hernia surgery Reported Medications Refer to EMR Allergies: Coded Allergies: No Known Allergies (Verified Allergy, Unknown, 10/16/17) Active Ordered Medications Refer to EMR Family History Father with history leukemia Social History Nice history tobacco, alcohol or intravenous drug abuse Physical Exam Vital Signs Date Time Temp Pulse Resp B/P (MAP) Pulse Ox O2 Delivery O2 Flow Rate FiO2 10/16/17 12:07 98.5 84 18 156/69 (98) 98 10/16/17 10:35 97.8 76 18 133/64 (87) 99 10/16/17 09:45 97.9 77 18 125/64 (84) 98 Room Air 10/16/17 08:56 17 10/16/17 07:56 18 100 Room Air 10/16/17 07:55 18 100 Room Air 10/16/17 07:48 97.8 100 18 153/72 (99) 100 Physical Exam GENERAL: This is a well-nourished, well-developed patient, in no apparent distress. SKIN: No rashes, ecchymoses or lesions. Cool and dry. HEAD: Atraumatic. Normocephalic. No temporal or scalp tenderness. EYES: Pupils equal round and reactive. Extraocular motions intact. No scleral icterus. No injection or drainage. ENT: Nose without bleeding, purulent drainage or septal hematoma. Throat without erythema, tonsillar hypertrophy or exudate. Uvula midline. Airway patent. NECK: Trachea midline. No JVD or lymphadenopathy. Supple, nontender, no meningeal signs. GASTROINTESTINAL: Abdomen soft, non-tender, nondistended. No hepato-splenomegaly , or palpable masses. No guarding. GENITOURINARY: Bladder not distended. Pena catheter in place draining medium to dark red urine without clots in the tubing. MUSCULOSKELETAL: Extremities without clubbing, cyanosis, or edema. No joint tenderness, effusion, or edema noted. No calf tenderness. Negative Homans sign bilaterally. NEUROLOGICAL: Awake and alert. Cranial nerves II through XII intact. Motor and sensory grossly within normal limits. Five out of 5 muscle strength in all muscle groups. Normal speech. Lab results reviewed: Yes Laboratory Tests Test 10/16/17 08:00 10/16/17 08:45 White Blood Count 11.1 Red Blood Count 1.89 Hemoglobin 6.1 Hematocrit 18.4 Mean Corpuscular Volume 97.2 Mean Corpuscular Hemoglobin 32.2 Mean Corpuscular Hemoglobin Concent 33.2 Red Cell Distribution Width 17.5 Platelet Count 289 Mean Platelet Volume 7.0 Neutrophils (%) (Auto) 79.7 Lymphocytes (%) (Auto) 12.0 Monocytes (%) (Auto) 6.0 Eosinophils (%) (Auto) 1.7 Basophils (%) (Auto) 0.6 Neutrophils # (Auto) 8.9 Lymphocytes # (Auto) 1.3 Monocytes # (Auto) 0.7 Eosinophils # (Auto) 0.2 Basophils # (Auto) 0.1 CBC Comment AUTO DIFF Differential Total Cells Counted 100 Neutrophils % (Manual) 73 Band Neutrophils % 8 Lymphocytes % 15 Monocytes % 1 Eosinophils % 1 Neutrophils # (Manual) 9.2 Metamyelocytes 1 Myelocytes 1 Nucleated Red Blood Cells 2 Differential Comment FINAL DIFF MANUAL Platelet Estimate NORMAL Platelet Morphology Comment NORMAL Prothrombin Time 10.8 Prothromb Time International Ratio 1.1 Activated Partial Thromboplast Time 21.6 Urine Color RED Urine Turbidity MARKED Urine pH 8.0 Urine Specific [place] 1.031 Urine Protein GREATER THAN 600 Urine Glucose (UA) TRACE Urine Ketones NEG Urine Occult Blood LARGE Urine Nitrite NEG Urine Bilirubin NEG Urine Urobilinogen LESS THAN 2.0 Urine Leukocyte Esterase NEG Urine RBC Urine WBC Urine WBC Clumps FEW Urine Squamous Epithelial Cells 9 Urine Bacteria FEW Urine Mucus OCC Microscopic Urinalysis Comment CULTURE INDICATED Blood Urea Nitrogen 58 Creatinine 3.37 Random Glucose 144 Total Protein 5.7 Albumin 2.3 Calcium Level 8.0 Magnesium Level 1.9 Alkaline Phosphatase 56 Aspartate Amino Transf (AST/SGOT) 12 Alanine Aminotransferase (ALT/SGPT) 9 Total Bilirubin 0.2 Sodium Level 138 Potassium Level 4.2 Chloride Level 109 Carbon Dioxide Level 17.7 Anion Gap 11 Estimat Glomerular Filtration Rate 18 Total Creatine Kinase 118 Creatine Kinase MB 5.6 Troponin I 0.03 Date/Time Source Procedure Growth Status 10/16/17 08:00 Urine Random Urine Urine Culture Pending Received Result Diagram: 10/16/17 0800 10/16/17 0845 Imaging Last Impressions Chest X-Ray 10/16/17 0911 Signed Impressions: Service Date/Time: October 09:18 - CONCLUSION: 1. Cardiomegaly. No acute pulmonary disease. Ron Lopez MD Assessment and Plan Assessment and Plan Urologic impression: #1 gross hematuria related to patient's known history of metastatic bladder cancer #2 bilateral hydroureteronephrosis related to bladder cancer status post bilateral stent placement Recommendations: #1 Pena catheter to gravity drainage #2 irrigate Pena when necessary #3 agree with transfusion packed red blood cells #4 discharge home with Pena catheter to gravity drainage once hematuria resolved and medically stable #5 patient to keep his follow up appointment with Dr. Maldonado his established urologist after hospital discharge as scheduled #6 nothing further to add at this time Jack Thorne MD Oct 16, 2017 13:08
[2017-10-16] MEDS: HYDROmorphone HCL PF 2 MG/ML VIAL IV PUSH PRN (16:05)
[2017-10-16] MEDS: SODIUM CHLORIDE 0.9% FLUSH 10 ML FLUSH IV FLUSH SCH (21:40)
[2017-10-16] MEDS: TAMSULOSIN HCL 0.4 MG CAP PO SCH (21:40)
[2017-10-16] MEDS: ACETAMINOPHEN/HYDROcodone 325 MG/5 MG TAB PO PRN (21:40)
[2017-10-16] MEDS ORDERED: valACYclovir HCL 500 MG TAB PO SCH (22:00)
[2017-10-16] MEDS: valACYclovir HCL 500 MG TAB PO SCH (22:04)
[2017-10-17] VITALS (11 sets, daily range): BP systolic 110–148; BP diastolic 60–78; PULSE 76–93; RESP 18–20; TEMP 97.1–99; O2SAT 93–98
[2017-10-17] MEDS: valACYclovir HCL 500 MG TAB PO SCH ×3 (05:10→20:45)
[2017-10-17 07:32] LABS: AUTOMATED NEUTROPHIL # 7.2 TH/MM3 (1.8-7.7); BASOPHIL # 0.1 TH/MM3 (0-0.2); BASOPHIL % 0.7 % (0.0-2.0); EOSINOPHIL # 0.1 TH/MM3 (0-0.4); EOSINOPHIL % 1.6 % (0.0-4.0); HEMATOCRIT 23.2 % (39.0-51.0); HEMOGLOBIN 8.2 GM/DL (13.0-17.0); LYMPH % 6.9 % (9.0-44.0); LYMPHOCYTE # 0.6 TH/MM3 (1.0-4.8); MEAN CORPUSCULAR HGB CONC 35.3 % (32.0-36.0); MEAN PLATELET VOLUME 6.6 FL (7.0-11.0); MONO % 7.6 % (0.0-8.0); MONOCYTE # 0.7 TH/MM3 (0-0.9); NEUT % 83.2 % (16.0-70.0); PLATELET COUNT 214 TH/MM3 (150-450); RED BLOOD COUNT 2.64 MIL/MM3 (4.50-5.90); RED CELL DISTRIBUTION WIDTH 18.2 % (11.6-17.2); WHITE BLOOD COUNT 8.6 TH/MM3 (4.0-11.0)
[2017-10-17 08:01] LABS: BICARBONATE 20.4 MEQ/L (21.0-32.0); CALCIUM 8.3 MG/DL (8.5-10.1); CREATININE 2.83 MG/DL (0.60-1.30)
[2017-10-17 08:48] LABS: BANDS 1 % (0-6); CORRECTED NUCLEATED RBC 4 /100 WBC (0-0); LYMPHOCYTES 8 % (9-44); METAMYELOCYTES 2 % (0-1); MONOCYTES 4 % (0-8); NEUTROPHIL # MANUAL DIFF 7.5 TH/MM3 (1.8-7.7); NUCLEATED RED BLOOD CELL 4 (0-0); POLYS (SEG NEUTROPHILS) 84 % (16-70)
[2017-10-17 08:52] LABS: KERATOCYTES OCC (NORMAL)
[2017-10-17] MEDS ORDERED: METHENAMINE PO SCH (09:00)
[2017-10-17] MEDS: SODIUM CHLORIDE 0.9% FLUSH 10 ML FLUSH IV FLUSH SCH ×2 (09:00→20:44)
[2017-10-17] MEDS ORDERED: METHYLENE BLUE PO SCH (09:00)
[2017-10-17] MEDS ORDERED: HYOSCYAMINE PO SCH (09:00)
--- NOTE | 2017-10-17 09:34 | HHI.PR ---
Subjective Patient symptoms today S/P transfusion 2 units packed red blood cells yesterday Reports not taking much oral intake Feels weak and tired Objective Vital Signs Vital Signs Date Time Temp Pulse Resp B/P (MAP) Pulse Ox O2 Delivery O2 Flow Rate FiO2 10/17/17 08:00 98.0 87 20 133/62 (85) 95 10/17/17 05:30 99.0 87 18 134/74 (94) 95 10/17/17 04:13 82 10/17/17 00:10 82 10/17/17 00:00 97.8 87 18 148/78 (101) 95 10/16/17 21:36 Room Air 10/16/17 21:07 98.5 83 20 144/67 96 10/16/17 21:00 98.5 83 20 144/67 (92) 96 10/16/17 19:55 77 10/16/17 16:10 98.6 79 18 156/75 (102) 96 10/16/17 16:00 85 10/16/17 14:42 98.5 81 20 142/68 96 10/16/17 14:22 98.0 76 20 126/68 97 10/16/17 12:07 98.5 84 18 156/69 (98) 98 10/16/17 12:00 76 10/16/17 10:35 97.8 76 18 133/64 (87) 99 10/16/17 09:45 97.9 77 18 125/64 (84) 98 Room Air Intake & Output 10/17/17 10/17/17 07:00 19:00 Intake Total 430 ml Balance 430 ml IV Total 20 ml Packed Cells 400 ml Blood Product IV Normal Saline Flush 10 ml # Bowel Movements 1 Result Diagram: 10/17/17 0701 10/17/17 0701 Objective Remarks Abdomen soft, nondistended, nontender Bladder not distended Pena catheter in place with minimal output, urine in tubing medium red in color Medications and IVs Current Medications Medications (Trade) Dose Ordered Sig/Trisha Route Start Time Stop Time Status Last Admin (NS Flush) 2 ml UNSCH PRN IVF 10/16/17 08:00 10/16/17 08:27 (NS Flush) 2 ml UNSCH PRN IV FLUSH 10/16/17 09:15 (NS Flush) 2 ml BID IV FLUSH 10/16/17 21:00 10/16/17 21:40 (Tylenol) 650 mg Q4H PRN PO 10/16/17 09:15 (Zofran Inj) 4 mg Q6H PRN IVP 10/16/17 09:15 (Narcan Inj) 0.4 mg UNSCH PRN IV PUSH 10/16/17 09:15 (Milk Of Magnesia Liq) 30 ml Q12H PRN PO 10/16/17 09:15 (Norvasc) 10 mg DAILY PO 10/17/17 09:00 (Proscar) 5 mg DAILY PO 10/17/17 09:00 (Synthroid) 125 mcg DAILY PO 10/17/17 09:00 (Flomax) 0.4 mg HS PO 10/16/17 21:00 10/16/17 21:40 Patient Own Medication PT OWN MED: [id number]... DAILY PO 10/17/17 09:00 Future Hold ([place] 5-325 Mg) 1 tab Q4H PRN PO 10/16/17 14:00 10/16/17 21:40 (Dilaudid Pf Inj) 0.5 mg Q4H PRN IV PUSH 10/16/17 14:00 10/16/17 16:05 (Valtrex) 1,000 mg Q8HR PO 10/16/17 22:00 10/23/17 21:59 10/17/17 05:10 Assessment and Plan Assessment and Plan Urologic impression: #1 gross hematuria related to patient's known history of metastatic bladder cancer #2 bilateral hydroureteronephrosis related to bladder cancer status post bilateral stent placement #3 diminished urine output related to dehydration Recommendations: #1 Pena catheter to gravity drainage #2 irrigate Pena when necessary #3 will order intravenous fluids, rate and type of fluid replacement to be adjusted by medical team #4 discharge home with Pena catheter to gravity drainage once hematuria resolved and medically stable #5 patient to keep his follow up appointment with Dr. Maldonado his established urologist after hospital discharge as scheduled #6 nothing further to add at this time Jack Thorne MD Oct 17, 2017 09:34
[2017-10-17] MEDS: FINASTERIDE 5 MG TAB PO SCH (10:51)
[2017-10-17] MEDS: SODIUM CHLOR 0.45% 1000 ML INJ 1,000 ML IV SCH (10:51)
[2017-10-17] MEDS: LEVOTHYROXINE SODIUM 125 MCG TAB PO SCH (10:51)
--- NOTE | 2017-10-17 14:13 | PD.CONS ---
Consult Service Palliative Care Consult Requested By Dr. Moreno Primary Care Physician Jasmeet Farah MD Reason for Consultation a. To assist with evaluation and management of symptoms including:general weakness. b. To assist medical decision maker(s) with: better understanding of current medical conditions; weighing benefits/burdens of medical treatment options; making medical treatment decisions. HPI History of Present Illness Patient is a 82-year-old with past medical history significant for but not limited to bladder cancer on radiation and chemotherapy seeing Dr. Machado. 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 Patient had ureteral stents bilaterally placed. Condition is complicated by he matter urea, however he also has recurrent DVTs in which in an IVC filter was placed. Patient also has a history of arthritis, cardiac problems, hypertension, hypothyroidism, chronic kidney disease. Patient came in on 10/16/2017 with a complaint of weakness. He had a catheter removed yesterday and also does not remember the last time he urinated. In the ER: * Temperature is 97.8, pulse is 100, respirations 18, blood pressure is 153/72, pulse ox is 100% on room air * WBCs 11.1, hemoglobin 6.1, hematocrit is 18.4, platelets 289 * Sodium is 138, potassium is 4.2, chloride is 19, bicarbonate 17.7, BUN 58, creatinine is 3.37 * AST is 12, ALTs 9, CK-MB is 5.9, troponin I 0.03, protein total protein is 5.7 , and albumin is 2.3 * PT is 10.8, INR is 1.1 * UA she is red in color, large amounts of occult blood, * Urine culture shows no growth. * Checks x-ray shows cardiomegaly but no pulmonary Patient was admitted to the hospital. Neurology was consulted who recommends continue Skinner catheter irrigation as needed. 2 units of PRBC was transfused. IV fluids was given for acute on chronic renal failure. Patient cannot tolerate anticoagulants due to a matter urea. Labs were drawn and patient's condition was monitored. 10/17/2016- patient remains very weak and tired and not eating much. Palliative care was consulted to review goals of care. Pt endorse pain in the left buttock area 8/10, burning, but improved to 6/10 after pain medication. He say he gets dizzy with the medicine. He says he does feel better than before the hospitalization. Review goals of care with pt, with in the room. ==they endorse a DNR/DNI- If I decline "let me go." ==they are both not quite ready to transition to comfort measures. They want to follow up with Dr. Maldonado to see new stents needs to be place as it has been 6 months according to patient. Pt also state he has overall tolerated Optivo pretty well and is schedule to see Dr. Machado after follow up with Dr. Maldonado. He said he did not get any side effects from the medicine. == I review with them the challenges he faces, such as recurrent hematuria, his weakness, and the fact we could not anticoagulate despite DVT, PE risk. said "I want to keep alive as long as I can" .. short of resucitation. == They are amenable for me to call Dr. Machado to see if he has any recommendation or perspective. == they are grateful and amenable to follow up. Function/Cognitive Trajectory He has been in and out of the hospital. He had a he has increased weakness and has been declining. He did say he has tolerated optivo well and has not had side effects Review of Systems ROS Limitations: Clinical Condition Constitutional: COMPLAINS OF: Fatigue Eyes: DENIES: Diplopia Ears, nose, mouth, throat: DENIES: Hearing loss Cardiovascular: DENIES: Chest pain, Palpitations Gastrointestinal: DENIES: Nausea, Vomiting, Difficulty Swallowing Genitourinary: COMPLAINS OF: Urinary frequency, Hematuria Integumentary: COMPLAINS OF: Rash (left buttock shingles.) Hematologic/Lymphatics: COMPLAINS OF: Prolonged bleed w/ proced (hematauria requrin transfusion) Psychiatric: DENIES: Anxiety, Confusion Past Family Social History Coded Allergies: No Known Allergies (Verified Allergy, Unknown, 10/16/17) Past Medical History Metastatic bladder cancer Chronic kidney disease Recurrent DVT Pulmonary embolism Hypertension Hyperlipidemia Diabetes mellitus Hypothyroidism Chronic anemia Cataracts Past Surgical History Status post bilateral ureteral stent placement Status post cystoscopy with fulguration of bleeding site Status post placement of IVC filter Status post bilateral cataract surgery Status post hernia surgery Reported Medications Temazepam 15 Mg Cap 15 Mg PO HS PRN Vitamin C (Ascorbic Acid) 1,000 Mg Tablet.er Uribel (Crlsqzsdkfi-Tgbgb-Hbshfjlxx Blue) 1 Cap 2 Cap PO DAILY B12 (Cyanocobalamin) 1,000 Mcg Tab DAILY Zinc (Zinc Gluconate) 50 Mg Tab 1 Tab PO DAILY Magnesium 200 Mg Tab 250 Mg PO DAILY Proscar (Finasteride) 5 Mg Tab 5 Mg PO DAILY Do not crush. Tamsulosin (Tamsulosin HCl) 0.4 Mg Cap 0.4 Mg PO HS Amlodipine (Amlodipine Besylate) 10 Mg Tab 10 Mg PO DAILY Levothyroxine (Levothyroxine Sodium) 125 Mcg Tab 125 Mcg PO DAILY Current Medications Medications (Trade) Dose Ordered Sig/Trisha Route Start Time Stop Time Status Last Admin (NS Flush) 2 ml UNSCH PRN IVF 10/16/17 08:00 10/16/17 08:27 (NS Flush) 2 ml UNSCH PRN IV FLUSH 10/16/17 09:15 (NS Flush) 2 ml BID IV FLUSH 10/16/17 21:00 10/16/17 21:40 (Tylenol) 650 mg Q4H PRN PO 10/16/17 09:15 (Zofran Inj) 4 mg Q6H PRN IVP 10/16/17 09:15 (Narcan Inj) 0.4 mg UNSCH PRN IV PUSH 10/16/17 09:15 (Milk Of Magnesia Liq) 30 ml Q12H PRN PO 10/16/17 09:15 (Norvasc) 10 mg DAILY PO 10/17/17 09:00 10/17/17 10:51 (Proscar) 5 mg DAILY PO 10/17/17 09:00 10/17/17 10:51 (Synthroid) 125 mcg DAILY PO 10/17/17 09:00 10/17/17 10:51 (Flomax) 0.4 mg HS PO 10/16/17 21:00 10/16/17 21:40 Patient Own Medication PT OWN MED: Yjwlfjkowlq-Vnacg-New... DAILY PO 10/17/17 09:00 Future Hold (Martin 5-325 Mg) 1 tab Q4H PRN PO 10/16/17 14:00 10/16/17 21:40 (Dilaudid Pf Inj) 0.5 mg Q4H PRN IV PUSH 10/16/17 14:00 10/16/17 16:05 (Valtrex) 1,000 mg Q8HR PO 10/16/17 22:00 10/23/17 21:59 10/17/17 13:15 Sodium Chloride 1,000 ml @ 84 mls/hr [id number] IV 10/17/17 10:00 10/17/17 10:51 Family History Father has leukemia Substance Use Tobacco: No Alcohol: No Prescription med abuse: No Illicits: No Psychosocial History Patient is . Orignially from [facility]. Surived sov[employer] occupation and participated in [place] revolution. Immigrated to the in the 70s. Worked in the [employer]. Lived in [place] since leaving [facility] , travelled back to [facility] occasionally in the past. Has , son, and 2 grandson. Spiritual/Cultural Factors Patient is Adventist Living Will: Completed, but not made available Physical Exam Vital Signs Date Time Temp Pulse Resp B/P (MAP) Pulse Ox O2 Delivery O2 Flow Rate FiO2 10/17/17 12:00 97.1 76 20 130/60 (83) 93 10/17/17 08:00 98.0 87 20 133/62 (85) 95 10/17/17 05:30 99.0 87 18 134/74 (94) 95 10/17/17 04:13 82 10/17/17 00:10 82 10/17/17 00:00 97.8 87 18 148/78 (101) 95 10/16/17 21:36 Room Air 10/16/17 21:07 98.5 83 20 144/67 96 10/16/17 21:00 98.5 83 20 144/67 (92) 96 10/16/17 19:55 77 10/16/17 16:10 98.6 79 18 156/75 (102) 96 10/16/17 16:00 85 10/16/17 14:42 98.5 81 20 142/68 96 10/16/17 14:22 98.0 76 20 126/68 97 Exam CONSTITUTIONAL/GENERAL: This is an frail elderly male. TUBES/LINES/DRAINS: skinner, piv. SKIN: No jaundice. Rash left buttock HEAD: Atraumatic. Normocephalic. EYES: Pupils equal and round and reactive. Extraocular motions intact. No scleral icterus. No injection or drainage. Fundi not examined. ENT: Hearing grossly normal. Nose without bleeding or purulent drainage. Throat without visible erythema, exudates, masses, or lesions. NECK: Trachea midline. Supple, nontender. No palpable thyroid enlargement or nodularity. CARDIOVASCULAR: Regular rate and rhythm. No murmurs RESPIRATORY/CHEST: Symmetric, unlabored respirations. Clear to auscultation. Breath sounds equal bilaterally. No wheezes, rales, or rhonchi. GASTROINTESTINAL: Abdomen soft, non-tender, nondistended. No hepato-splenomegaly , or palpable masses. No guarding. Bowel sounds present. GENITOURINARY: Without palpable bladder distension. Skinner catheter in place, hematuria MUSCULOSKELETAL: Extremities without clubbing, cyanosis, or edema. No joint tenderness or effusion noted. No calf tenderness. No mottling or clubbing. LYMPHATICS: No palpable cervical or supraclavicular adenopathy. NEUROLOGICAL: Awake and alert. Motor and sensory grossly within normal limits. Follows commands. Cognitively sharp. Moves all extremities. PSYCHIATRIC: No obvious anxiety/depression. no apparent hallucinations or other psychotic thought process. Diagnostic Tests Laboratory Laboratory Tests Test 10/16/17 08:00 10/16/17 08:45 10/17/17 07:01 White Blood Count 11.1 TH/MM3 (4.0-11.0) 8.6 TH/MM3 (4.0-11.0) Red Blood Count 1.89 MIL/MM3 (4.50-5.90) 2.64 MIL/MM3 (4.50-5.90) Hemoglobin 6.1 GM/DL (13.0-17.0) 8.2 GM/DL (13.0-17.0) Hematocrit 18.4 % (39.0-51.0) 23.2 % (39.0-51.0) Mean Corpuscular Volume 97.2 FL (80.0-100.0) 88.0 FL (80.0-100.0) Mean Corpuscular Hemoglobin 32.2 PG (27.0-34.0) 31.0 PG (27.0-34.0) Mean Corpuscular Hemoglobin Concent 33.2 % (32.0-36.0) 35.3 % (32.0-36.0) Red Cell Distribution Width 17.5 % (11.6-17.2) 18.2 % (11.6-17.2) Platelet Count 289 TH/MM3 (150-450) 214 TH/MM3 (150-450) Mean Platelet Volume 7.0 FL (7.0-11.0) 6.6 FL (7.0-11.0) Neutrophils (%) (Auto) 79.7 % (16.0-70.0) 83.2 % (16.0-70.0) Lymphocytes (%) (Auto) 12.0 % (9.0-44.0) 6.9 % (9.0-44.0) Monocytes (%) (Auto) 6.0 % (0.0-8.0) 7.6 % (0.0-8.0) Eosinophils (%) (Auto) 1.7 % (0.0-4.0) 1.6 % (0.0-4.0) Basophils (%) (Auto) 0.6 % (0.0-2.0) 0.7 % (0.0-2.0) Neutrophils # (Auto) 8.9 TH/MM3 (1.8-7.7) 7.2 TH/MM3 (1.8-7.7) Lymphocytes # (Auto) 1.3 TH/MM3 (1.0-4.8) 0.6 TH/MM3 (1.0-4.8) Monocytes # (Auto) 0.7 TH/MM3 (0-0.9) 0.7 TH/MM3 (0-0.9) Eosinophils # (Auto) 0.2 TH/MM3 (0-0.4) 0.1 TH/MM3 (0-0.4) Basophils # (Auto) 0.1 TH/MM3 (0-0.2) 0.1 TH/MM3 (0-0.2) CBC Comment AUTO DIFF AUTO DIFF Differential Total Cells Counted 100 100 Neutrophils % (Manual) 73 % (16-70) 84 % (16-70) Band Neutrophils % 8 % (0-6) 1 % (0-6) Lymphocytes % 15 % (9-44) 8 % (9-44) Monocytes % 1 % (0-8) 4 % (0-8) Eosinophils % 1 % (0-4) 1 % (0-4) Neutrophils # (Manual) 9.2 TH/MM3 (1.8-7.7) 7.5 TH/MM3 (1.8-7.7) Metamyelocytes 1 % (0-1) 2 % (0-1) Myelocytes 1 % (0-0) Nucleated Red Blood Cells 2 /100 WBC (0-0) 4 /100 WBC (0-0) Differential Comment FINAL DIFF MANUAL FINAL DIFF MANUAL Platelet Estimate NORMAL (NORMAL) NORMAL (NORMAL) Platelet Morphology Comment NORMAL (NORMAL) NORMAL (NORMAL) Prothrombin Time 10.8 SEC (9.8-11.6) Prothromb Time International Ratio 1.1 RATIO Activated Partial Thromboplast Time 21.6 SEC (24.3-30.1) Urine Color RED (YELLW/STRAW) Urine Turbidity MARKED (CLEAR) Urine pH 8.0 (5.0-8.5) Urine Specific [place] 1.031 (1.002-1.035) Urine Protein GREATER THAN 600 mg/dL Urine Glucose (UA) TRACE mg/dL (NEG) Urine Ketones NEG mg/dL (NEG) Urine Occult Blood LARGE (NEG) Urine Nitrite NEG (NEG) Urine Bilirubin NEG (NEG) Urine Urobilinogen LESS THAN 2.0 MG/DL (LESS Urine Leukocyte Esterase NEG (NEG) Urine RBC /hpf (0-3) Urine WBC /hpf (0-5) Urine WBC Clumps FEW (NONE) Urine Squamous Epithelial Cells 9 /hpf (0-5) Urine Bacteria FEW /hpf (NONE) Urine Mucus OCC /lpf (OCC) Microscopic Urinalysis Comment CULTURE INDICATED Blood Urea Nitrogen 58 MG/DL (7-18) 52 MG/DL (7-18) Creatinine 3.37 MG/DL (0.60-1.30) 2.83 MG/DL (0.60-1.30) Random Glucose 144 MG/DL (74-106) 136 MG/DL (74-106) Total Protein 5.7 GM/DL (6.4-8.2) Albumin 2.3 GM/DL (3.4-5.0) Calcium Level 8.0 MG/DL (8.5-10.1) 8.3 MG/DL (8.5-10.1) Magnesium Level 1.9 MG/DL (1.5-2.5) Alkaline Phosphatase 56 U/L (45-117) Aspartate Amino Transf (AST/SGOT) 12 U/L (15-37) Alanine Aminotransferase (ALT/SGPT) 9 U/L (12-78) Total Bilirubin 0.2 MG/DL (0.2-1.0) Sodium Level 138 MEQ/L (136-145) 141 MEQ/L (136-145) Potassium Level 4.2 MEQ/L (3.5-5.1) 4.1 MEQ/L (3.5-5.1) Chloride Level 109 MEQ/L (98-107) 110 MEQ/L (98-107) Carbon Dioxide Level 17.7 MEQ/L (21.0-32.0) 20.4 MEQ/L (21.0-32.0) Anion Gap 11 MEQ/L (5-15) 11 MEQ/L (5-15) Estimat Glomerular Filtration Rate 18 ML/MIN (>89) 21 ML/MIN (>89) Total Creatine Kinase 118 U/L (39-308) Creatine Kinase MB 5.6 NG/ML (0.5-3.6) Troponin I 0.03 NG/ML (0.02-0.05) Basophilic Stippling FAINT (NORMAL) Keratocytes OCC (NORMAL) Result Diagram: 10/17/17 0701 10/17/17 0701 Microbiology Microbiology Date/Time Source Procedure Growth Status 10/16/17 08:00 Urine Random Urine Urine Culture - Final NO GROWTH Complete Imaging Last Impressions Chest X-Ray 10/16/17 0911 Signed Impressions: Service Date/Time: October 09:18 - CONCLUSION: 1. Cardiomegaly. No acute pulmonary disease. Ron Lopez MD Patient/Family Conference Present at Family Conference: Family Conference Location: Bedside Issues Discussed: * Palliative care role, purpose, approach * Additional medical, psychosocial, and spiritual history * Patients general health, functional status, and cognitive changes in the months leading up to the current hospitalization * Patient/family understanding of the current medical problems * Patient/family understanding of prognosis * Patients goals of care as best understood from advance directives and/or conversations and/or values * Current medical treatment options and benefits/burdens of those options * Likely scenarios comparing ongoing aggressive care with a transition to comfort measures only * Questions answered to the best of my ability * Palliative care contact information provided Assessment and Plan Disease Oriented Problem List: (1) Acute kidney injury superimposed on CKD (2) Hematuria (3) Hydronephrosis due to obstructive malignant bladder cancer (4) Symptomatic anemia (5) Metastatic urothelial carcinoma (6) Recurrent deep vein thrombosis (DVT) Comment: hx PE. Has IVC, not candidate for anticoagulation give hematuria. Symptom Scale: (1) Pain 0-10 Scale: 6 Pertinent Non-Medical Issues Psychosocial: Spiritual: Legal: Ethical issues impacting care: Important Contacts Prognosis 82 with stage IV urothelial carcinoma. Condition complicated by hematocrit urea , DVTs and PEs, decrease appetite, general weakness. Patient has had recurrent hospitalization. Patient is hospice appropriate of goals of care are consistent with comfort measures only. Code Status: No Code Plan == Pain- mostly form shingles. On valacyclovir. Dilaudid and norco prn. No new med rec for now. == code: DNR. == pt currently has capaicty to make medical decisons. == medical decis == goals of care. Review goals of care with pt, with in the room. * they endorse a DNR/DNI- If I decline "let me go." * ==they are both not quite ready to transition to comfort measures. They want to follow up with Dr. Maldonado to see if new stents needs to be place as it has been 6 months according to patient. Pt also state he has overall tolerated Optivo pretty well and is schedule to see Dr. Machado after follow up with Dr. Maldonado. He said he did not get any side effects from the medicine. * == I review with them the challenges he faces, such as recurrent hematuria, his weakness, and the fact we could not anticoagulate despite DVT, PE risk. said "I want to keep alive as long as I can" .. short of resucitation. * == They are amenable for me to call Dr. Machado to see if he has any recommendation or perspective. * == they are grateful and amenable to follow up Friday. * ask to bring in living will. ==Palliative care will follow to make recommendations for symptom managment and review goals of care as clinical condition evolves. Thank you for the opportunity to participate in the care of Mr. Ludwig. Attestation To help prompt me to consider important information that might be impacting today's encounter and assessment, information from prior notes written by myself or my colleagues may have been "brought forward" into today's note. My signature on this note, however, is an attestation that I personally performed the exam, history, and/or decision-making noted today, and, unless otherwise indicated, the interactions with patient, family, and staff as well as the review of records all occurred today. I also attest that the listed assessment and stated plan reflect my best clinical judgment today based on the combination of historical information, prior notes, and today's exam/ interactions. When time spent is documented, it refers only to time spent today by the signer, or if indicated, combined time spent today by collaborating physician/nurse practitioner. Baldev Hill MD Oct 17, 2017 14:13
[2017-10-17] MEDS: ACETAMINOPHEN/HYDROcodone 325 MG/5 MG TAB PO PRN (16:29)
--- NOTE | 2017-10-17 18:42 | HHI.PR ---
Subjective Remarks continued hematuria. Objective Vitals Vital Signs Date Time Temp Pulse Resp B/P (MAP) Pulse Ox O2 Delivery O2 Flow Rate FiO2 10/17/17 16:00 98.0 90 20 136/64 (88) 96 10/17/17 16:00 93 10/17/17 12:00 91 10/17/17 12:00 97.1 76 20 130/60 (83) 93 10/17/17 08:00 98.0 87 20 133/62 (85) 95 10/17/17 08:00 87 10/17/17 07:00 Room Air 10/17/17 05:30 99.0 87 18 134/74 (94) 95 10/17/17 04:13 82 10/17/17 00:10 82 10/17/17 00:00 97.8 87 18 148/78 (101) 95 10/16/17 21:36 Room Air 10/16/17 21:07 98.5 83 20 144/67 96 10/16/17 21:00 98.5 83 20 144/67 (92) 96 10/16/17 19:55 77 10/17/17 10/17/17 10/18/17 15:00 23:00 07:00 Intake Total 480 ml Output Total 300 ml Balance 180 ml Intake Oral 480 ml Output Urine Total 300 ml # Bowel Movements 2 Result Diagram: 10/17/17 0701 10/17/17 0701 Imaging Last Impressions Chest X-Ray 10/16/17 0911 Signed Impressions: Service Date/Time: October 09:18 - CONCLUSION: 1. Cardiomegaly. No acute pulmonary disease. Ron Lopez MD Objective Remarks GENERAL: This is a well-nourished, well-developed patient, in no apparent distress. CARDIOVASCULAR: Regular rate and rhythm without murmurs, gallops, or rubs. RESPIRATORY: Clear to auscultation. Breath sounds equal bilaterally. No wheezes , rales, or rhonchi. GASTROINTESTINAL: Abdomen soft, non-tender, nondistended. Normal active bowel sounds MUSCULOSKELETAL: Extremities without clubbing, cyanosis, or edema. NEURO: Alert & Oriented x4 to person, place, time, situation. 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 He follows with Dr. Maldonado. Pt had a cystoscopy with reported cauterization about [address] Maldonado. Patient was recently admitted to [facility] on 10/12/17 for . Patient then had Skinner catheter removed and bladder irrigation on 10/15/16. Patient returned to ER 10/16/17 with abdominal pain secondary to urinary obstruction. Pts labs at admission noted Hgb 6.1/Hct 18.4. Pt is being admitted for for transfusion and urology evaluation. bilateral hydroureteronephrosis related to bladder cancer status post bilateral stent placement - Hg 6.1 (10/16), 8.2 (10/17) - Pt transfused 2 units PRBCs (10/16) - skinner - continued gross hematuria - Case d/w Dr. Thorne, Urology, (10/16). He recommends continue skinner catheter with irrigation as needed - IVFs - Case d/w Oncology, Dr. Glover (10/17). He will consult - Will try to obtain records from pt's [facility] and place in paper chart - continue IVFs - obtain repeat CBC, BMP, mag in AM - continue PT - may need SNF at end of hospitalization - DVT prophylaxis - supportive care (2) Abdominal pain ICD Codes: R10.9 - Unspecified abdominal pain Status: Acute Plan: see above (3) Symptomatic anemia ICD Codes: D64.9 - Anemia, unspecified Status: Acute Plan: - see above (4) Metastatic urothelial carcinoma ICD Codes: C79.10 - Secondary malignant neoplasm of unspecified urinary organs Status: Chronic Plan: - see above (5) Acute kidney injury superimposed on CKD ICD Codes: N17.9 - Acute kidney failure, unspecified; N18.9 - Chronic kidney disease, unspecified Status: Acute Plan: Elevated renal function likely secondary retention On admission BUN 55 creatinine 3.37 estimated GFR 18 Skinner catheter placed and draining IV fluids monitor renal function - Cr 2.83 (10/17) - repeat BMP in AM (6) Recurrent deep vein thrombosis (DVT) ICD Codes: I82.409 - Acute embolism and thrombosis of unspecified deep veins of unspecified lower extremity Plan: - Pt had IVC filter placed in 07/2017. He could not tolerate anticoagulants due to hematuria. (7) HTN (hypertension), benign ICD Codes: I10 - Essential (primary) hypertension Status: Chronic Plan: - Home meds continued - Clonidine PRN (8) Hypothyroidism ICD Codes: E03.9 - Hypothyroidism, unspecified Status: Chronic Plan: - Home meds continued (9) Shingles ICD Codes: B02.9 - Zoster without complications Status: Acute Plan: start Valtrex - norco prn Dustin Moreno DO Oct 17, 2017 18:42
[2017-10-17] MEDS: AMINOCAPROIC ACID 500 MG TAB PO SCH (19:00)
[2017-10-17] MEDS: TAMSULOSIN HCL 0.4 MG CAP PO SCH (20:45)
--- NOTE | 2017-10-17 23:14 | EKG ---
Date Performed: 10/16/2017 Time Performed: 07:56:30 PTAGE: 82 years EKG: Sinus rhythm RIGHT BUNDLE BRANCH BLOCK LEFT ANTERIOR FASCICULAR BLOCK ABNORMAL ECG PREVIOUS TRACING : 02/21/2017 06.18 DOCTOR: Teodora Quesada Interpretating Date/Time 10/17/2017 23:13:59
[2017-10-18] VITALS (11 sets, daily range): BP systolic 124–160; BP diastolic 66–82; PULSE 78–92; RESP 15–20; TEMP 97.5–100; O2SAT 83–96
[2017-10-18] MEDS: AMINOCAPROIC ACID 500 MG TAB PO SCH ×5 (00:28→21:52)
[2017-10-18] MEDS: SODIUM CHLOR 0.45% 1000 ML INJ 1,000 ML IV SCH ×2 (00:32→12:41)
[2017-10-18] MEDS: valACYclovir HCL 500 MG TAB PO SCH ×3 (04:49→21:50)
[2017-10-18] MEDS: ACETAMINOPHEN/HYDROcodone 325 MG/5 MG TAB PO PRN (06:29)
[2017-10-18] MEDS: SODIUM CHLORIDE 0.9% FLUSH 10 ML FLUSH IV FLUSH SCH ×2 (09:00→21:55)
[2017-10-18] MEDS: LEVOTHYROXINE SODIUM 125 MCG TAB PO SCH (10:01)
[2017-10-18] MEDS: FINASTERIDE 5 MG TAB PO SCH (10:01)
[2017-10-18 11:04] LABS: AUTOMATED NEUTROPHIL # 4.8 TH/MM3 (1.8-7.7); BASOPHIL % 0.3 % (0.0-2.0); EOSINOPHIL # 0.1 TH/MM3 (0-0.4); EOSINOPHIL % 1.7 % (0.0-4.0); LYMPH % 7.9 % (9.0-44.0); LYMPHOCYTE # 0.5 TH/MM3 (1.0-4.8); MEAN CELL VOLUME 91.4 FL (80.0-100.0); MEAN CORPUSCULAR HEMOGLOBIN 31.4 PG (27.0-34.0); MEAN CORPUSCULAR HGB CONC 34.4 % (32.0-36.0); MONO % 6.8 % (0.0-8.0); MONOCYTE # 0.4 TH/MM3 (0-0.9); NEUT % 83.3 % (16.0-70.0); PLATELET COUNT 174 TH/MM3 (150-450); RED BLOOD COUNT 2.22 MIL/MM3 (4.50-5.90); RED CELL DISTRIBUTION WIDTH 18.2 % (11.6-17.2); WHITE BLOOD COUNT 5.7 TH/MM3 (4.0-11.0)
[2017-10-18 11:09] LABS: HEMATOCRIT 20.2 % (39.0-51.0)
[2017-10-18 11:23] LABS: BICARBONATE 19.4 MEQ/L (21.0-32.0); CALCIUM 7.8 MG/DL (8.5-10.1); CREATININE 2.5 MG/DL (0.60-1.30); MAGNESIUM 1.8 MG/DL (1.5-2.5)
[2017-10-18] MEDS ORDERED: FUROSEMIDE 20 MG/2 ML VIAL IV PUSH ONE (12:15)
[2017-10-18] MEDS ORDERED: SODIUM CHLOR 0.9% 250 ML INJ 250 ML IV ONE (12:15)
--- NOTE | 2017-10-18 12:42 | HHI.PR ---
Subjective Remarks No new complaints. continues to have hematuria Objective Vitals Vital Signs Date Time Temp Pulse Resp B/P (MAP) Pulse Ox O2 Delivery O2 Flow Rate FiO2 10/18/17 12:00 98.4 82 20 124/68 (86) 83 10/18/17 08:00 97.5 89 20 131/66 (87) 95 10/18/17 04:00 100.0 90 18 151/70 (97) 94 10/18/17 03:49 89 10/17/17 23:54 99.0 92 20 110/65 (80) 95 10/17/17 23:42 92 10/17/17 20:51 Room Air 10/17/17 20:00 98.6 79 20 133/64 (87) 98 10/17/17 19:43 82 10/17/17 16:00 98.0 90 20 136/64 (88) 96 10/17/17 16:00 93 Result Diagram: 10/18/17 1001 10/18/17 1001 Other Results Laboratory Tests Test 10/16/17 08:00 10/16/17 08:45 10/17/17 07:01 10/18/17 10:01 White Blood Count 11.1 TH/MM3 8.6 TH/MM3 5.7 TH/MM3 Red Blood Count 1.89 MIL/MM3 2.64 MIL/MM3 2.22 MIL/MM3 Hemoglobin 6.1 GM/DL 8.2 GM/DL 7.0 GM/DL Hematocrit 18.4 % 23.2 % 20.2 % Mean Corpuscular Volume 97.2 FL 88.0 FL 91.4 FL Mean Corpuscular Hemoglobin 32.2 PG 31.0 PG 31.4 PG Mean Corpuscular Hemoglobin Concent 33.2 % 35.3 % 34.4 % Red Cell Distribution Width 17.5 % 18.2 % 18.2 % Platelet Count 289 TH/MM3 214 TH/MM3 174 TH/MM3 Mean Platelet Volume 7.0 FL 6.6 FL 7.0 FL Neutrophils (%) (Auto) 79.7 % 83.2 % 83.3 % Lymphocytes (%) (Auto) 12.0 % 6.9 % 7.9 % Monocytes (%) (Auto) 6.0 % 7.6 % 6.8 % Eosinophils (%) (Auto) 1.7 % 1.6 % 1.7 % Basophils (%) (Auto) 0.6 % 0.7 % 0.3 % Neutrophils # (Auto) 8.9 TH/MM3 7.2 TH/MM3 4.8 TH/MM3 Lymphocytes # (Auto) 1.3 TH/MM3 0.6 TH/MM3 0.5 TH/MM3 Monocytes # (Auto) 0.7 TH/MM3 0.7 TH/MM3 0.4 TH/MM3 Eosinophils # (Auto) 0.2 TH/MM3 0.1 TH/MM3 0.1 TH/MM3 Basophils # (Auto) 0.1 TH/MM3 0.1 TH/MM3 0.0 TH/MM3 CBC Comment AUTO DIFF AUTO DIFF DIFF FINAL Differential Total Cells Counted 100 100 Neutrophils % (Manual) 73 % 84 % Band Neutrophils % 8 % 1 % Lymphocytes % 15 % 8 % Monocytes % 1 % 4 % Eosinophils % 1 % 1 % Neutrophils # (Manual) 9.2 TH/MM3 7.5 TH/MM3 Metamyelocytes 1 % 2 % Myelocytes 1 % Nucleated Red Blood Cells 2 /100 WBC 4 /100 WBC Differential Comment FINAL DIFF MANUAL FINAL DIFF MANUAL Platelet Estimate NORMAL NORMAL Platelet Morphology Comment NORMAL NORMAL Prothrombin Time 10.8 SEC Prothromb Time International Ratio 1.1 RATIO Activated Partial Thromboplast Time 21.6 SEC Urine Color RED Urine Turbidity MARKED Urine pH 8.0 Urine Specific Drew 1.031 Urine Protein GREATER THAN 600 mg/dL Urine Glucose (UA) TRACE mg/dL Urine Ketones NEG mg/dL Urine Occult Blood LARGE Urine Nitrite NEG Urine Bilirubin NEG Urine Urobilinogen LESS THAN 2.0 MG/DL Urine Leukocyte Esterase NEG Urine RBC /hpf Urine WBC /hpf Urine WBC Clumps FEW Urine Squamous Epithelial Cells 9 /hpf Urine Bacteria FEW /hpf Urine Mucus OCC /lpf Microscopic Urinalysis Comment CULTURE INDICATED Blood Urea Nitrogen 58 MG/DL 52 MG/DL 40 MG/DL Creatinine 3.37 MG/DL 2.83 MG/DL 2.50 MG/DL Random Glucose 144 MG/DL 136 MG/DL 164 MG/DL Total Protein 5.7 GM/DL Albumin 2.3 GM/DL Calcium Level 8.0 MG/DL 8.3 MG/DL 7.8 MG/DL Magnesium Level 1.9 MG/DL 1.8 MG/DL Alkaline Phosphatase 56 U/L Aspartate Amino Transf (AST/SGOT) 12 U/L Alanine Aminotransferase (ALT/SGPT) 9 U/L Total Bilirubin 0.2 MG/DL Sodium Level 138 MEQ/L 141 MEQ/L 139 MEQ/L Potassium Level 4.2 MEQ/L 4.1 MEQ/L 3.5 MEQ/L Chloride Level 109 MEQ/L 110 MEQ/L 108 MEQ/L Carbon Dioxide Level 17.7 MEQ/L 20.4 MEQ/L 19.4 MEQ/L Anion Gap 11 MEQ/L 11 MEQ/L 12 MEQ/L Estimat Glomerular Filtration Rate 18 ML/MIN 21 ML/MIN 25 ML/MIN Total Creatine Kinase 118 U/L Creatine Kinase MB 5.6 NG/ML Troponin I 0.03 NG/ML Basophilic Stippling FAINT Keratocytes OCC Imaging Last Impressions Chest X-Ray 10/16/17 0911 Signed Impressions: Service Date/Time: October 09:18 - CONCLUSION: 1. Cardiomegaly. No acute pulmonary disease. Ron Lopez MD Objective Remarks GENERAL: This is a elderly 82 year old male patient CARDIOVASCULAR: Regular rate and rhythm RESPIRATORY: Clear to auscultation. Breath sounds equal bilaterally. GASTROINTESTINAL: Abdomen soft, non-tender, nondistended. Normal active bowel sounds GENITOURINARY: Skinner in place draining bloody urine MUSCULOSKELETAL: Extremities without clubbing, cyanosis, or edema. NEURO: Alert & Oriented x4 to person, place, time, situation. 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 He follows with Dr. Maldonado. Pt had a cystoscopy with reported cauterization about [address] Malodnado. Patient was [place] [facility] [place] for . Patient then had Skinner catheter removed and bladder irrigation on 10/15/16. Patient returned to ER 10/16/17 with abdominal pain secondary to urinary obstruction. Pts labs at admission noted Hgb 6.1/Hct 18.4. Pt is being admitted for for transfusion and urology evaluation. bilateral hydroureteronephrosis related to bladder cancer status post bilateral stent placement - Hg 6.1 (10/16), 8.2 (10/17), 7.0 (10/18) - Pt transfused 2 units PRBCs (10/16) - skinner in place - continued gross hematuria - Case d/w Dr. Thorne, Urology, (10/16). He recommends continue skinner catheter with irrigation as needed - IVFs - Case d/w Oncology, Dr. Glover (10/17) and (10/18) consult placed to IR to place percutaneous nephrostomy tubes - Dr. Moreno discussed the case with Urology Dr. Flores. Plan is to have IR place percutaneous nephrostomy tubes to divert the urine away from the bladder. - Records from pt's [place] Oncologist and place in paper chart - continue IVFs - obtain repeat CBC, BMP in AM - continue PT - may need SNF at end of hospitalization - DVT prophylaxis - supportive care (2) Abdominal pain ICD Codes: R10.9 - Unspecified abdominal pain Status: Acute Plan: see above (3) Symptomatic anemia ICD Codes: D64.9 - Anemia, unspecified Status: Acute Plan: On admission patient's hgb was 6.1 - 10/16/17 -> 2 units PRBC 10/17/17 hgb 7.0, 2 units PRBC ordered (4) Metastatic urothelial carcinoma ICD Codes: C79.10 - Secondary malignant neoplasm of unspecified urinary organs Status: Chronic Plan: - see above (5) Acute kidney injury superimposed on CKD ICD Codes: N17.9 - Acute kidney failure, unspecified; N18.9 - Chronic kidney disease, unspecified Status: Acute Plan: Elevated renal function likely secondary retention On admission BUN 55 creatinine 3.37 estimated GFR 18 Skinner catheter placed and draining IV fluids monitor renal function - Cr 2.83 (10/17) - repeat BMP in AM (6) Recurrent deep vein thrombosis (DVT) ICD Codes: I82.409 - Acute embolism and thrombosis of unspecified deep veins of unspecified lower extremity Plan: - Pt had IVC filter placed in 07/2017. He could not tolerate anticoagulants due to hematuria. (7) HTN (hypertension), benign ICD Codes: I10 - Essential (primary) hypertension Status: Chronic Plan: - Home meds continued - Clonidine PRN (8) Hypothyroidism ICD Codes: E03.9 - Hypothyroidism, unspecified Status: Chronic Plan: - Home meds continued (9) Shingles ICD Codes: B02.9 - Zoster without complications Status: Acute Plan: Valtrex norco prn Assessment and Plan Patient examined. Assessment and plan formulated with Malu Trotter PA-C. I agree with the above. Malu Trotter Oct 18, 2017 12:42 Dustin Moreno DO Oct 22, 2017 23:57
[2017-10-18] MEDS: DEXAMETHASONE SOD PHOS 4 MG/ML VIAL IV PUSH SCH ×2 (12:43→18:06)
--- NOTE | 2017-10-18 13:56 | MB ---
cc: OPAL BACON ZAFAR MD DATE OF CONSULTATION: 10/18/17 DATE OF : 1935 ONCOLOGIC DIAGNOSIS: Metastatic bladder carcinoma. CURRENT TREATMENT The patient had been on palliative systemic therapy with nivolumab, last dose was delivered about three weeks ago. PREVIOUS TREATMENT The patient reports having received concurrent chemoradiotherapy about enn-dcd-e-half years ago under the care of Dr. Bacon and radiation oncology at [facility] [address]. CHIEF COMPLAINT 1. Gross hematuria. 2. Generalized fatigue and weakness. HISTORY OF PRESENT ILLNESS Mr. Ludwig is a very pleasant 82-year-old male who is originally from [place]. Him and his have been in the [facility] for 46 years. 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 They have one son who lives in [place]. Mr. Ludwig reports being diagnosed about three years ago with bladder carcinoma. He reports that the bladder carcinoma was noted incidentally when he underwent cystoscopy for further workup and management of benign prostatic hypertrophy. He underwent chemoradiotherapy for locally advanced disease under the care of Dr. Bacon and radiation oncology at [facility] [address]. Unfortunately, shortly thereafter his disease was noted to have metastasized and the patient has been on palliative immunotherapy with nivolumab for a little over a year. The patient reports having been tolerating treatment well. He reports his disease is under good control as well. About three months ago, he began to develop gross hematuria. He underwent evaluation with Dr. Maldonado as recently as earlier this week. He was noted to have bleeding lesions within the bladder. These were fulgurated in the office and he had a Pena catheter placed. In July of 2017, the patient was hospitalized at [facility] where he underwent similar procedures and at that time underwent ureteric stent placements which were placed by interventional radiology and were initially urostomies which were converted to internal ureteric stents. He presents to [facility] with complaints of fatigue, weakness, symptomatic anemia and gross hematuria. Oncology has been asked to see him for further recommendations. PAST MEDICAL HISTORY 1. Metastatic bladder carcinoma. 2. Benign prosthetic hypertrophy. 3. Hypoparathyroidism. 4. Hypertension. 5. Hyperlipidemia. 6. Cataracts. 7. History of pulmonary embolus. 8. Recurrent deep venous thromboses status post IVC filter. 9. Stage IV kidney disease. PAST SURGICAL HISTORY 1. Multiple cystoscopies. 2. Transurethral prostate resection. 3. Hernia repair. 4. Varicose vein ligation. 5. Strabismus repair. 6. 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 7. filter placement. FAMILY HISTORY Father with a history of leukemia. No other oncologic diagnoses noted. 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 He lives at home with his . He is originally from [place]. No noted history of tobaccoism or alcoholism. ALLERGIES NO KNOWN DRUG ALLERGIES. CURRENT INPATIENT MEDICATIONS 1. Normal saline 84 cc/hr. 2. Hydrocodone/acetaminophen 5/325 one tablet p.o. q.4 hours as needed for pain. 3. Tylenol 650 mg p.o. q.4 hours. 4. Amicar 500 mg p.o. q.6 hours. 5. Amlodipine 10 mg p.o. daily. 6. Finasteride 5 mg p.o. daily. 7. Hydromorphone 0.5 mg IV q.4 hours as needed for pain. 8. Levothyroxine 125 mcg daily p.o. 9. Zofran 4 mg IV q.6 hours as needed for nausea and vomiting. 10. Tamsulosin 0.4 mg p.o. q.h.s. 11. Valacyclovir 100 mg p.o. q.8 hours. REVIEW OF SYSTEMS 13-point review of systems were obtained, the following are the pertinent positives and negatives: CONSTITUTIONAL: The patient reports fatigue, loss of appetite, weight loss. Denies fevers, chills. HEENT: Denies headaches, blurry vision, difficulty swallowing, soreness in the throat. RESPIRATORY: Denies exertional dyspnea, cough, hemoptysis. CARDIOVASCULAR: Denies angina-like chest pain, PND, orthopnea. He reports chronic lower extremity edema. UROGENITAL: He reports dysuria. He also reports blood in the urine. He reports requiring a Pena catheter. GASTROINTESTINAL: Denies nausea, vomiting, hematochezia, melena, abdominal distension. MANAGER PAYER: Denies any focal sensory or motor deficits. SKIN: No complaints. LABORATORY FINDINGS Blood work dated 10/17/2017: WBC count 8.6, hemoglobin 8.2 g/dL, hematocrit is 23.2%, platelet count is 214, absolute neutrophil count is 7.2. Chemistries: Sodium 141, potassium 4.1, chloride 110, bicarb 20.4, BUN 52, creatinine 2.83, random glucose 136, calcium is 8.3; these are labs from 10/17/2017 ASSESSMENT Mr. Ludwig is a very pleasant 82-year-old male with a diagnosis of metastatic bladder carcinoma. He is presently on palliative systemic immunotherapy with nivolumab. Prior to that, he received concurrent chemoradiotherapy to the bladder about two years ago under the supervision of Dr. Opal Bacon and the radiation [facility]. The patient's active issue at this point is gross hematuria which has been a relapsing remitting issue for the past two months. The patient did undergo cystoscopy with fulguration of a bleeding bladder lesion earlier this week at Dr. Maldonado's office. Unfortunately, this did not help the bleeding and he is back at [facility] for management of the gross hematuria. He has required multiple transfusions as support. DISCUSSION I did have a detailed discussion with Dr. Flores. Dr. Flores is the on-call urologist who is familiar with this patient's case given Mr. Ludwig's repeated hospitalizations over the past few months at both [facility] as well as [facility] in [place]. Dr. Flores recommends the patient undergo bilateral nephrostomy tube placement. He also recommends we consider changing out the patient's current Pena catheter to a larger one so he can undergo continuous bladder irrigation to prevent an occlusive clot from developing within the bladder. Additionally, because radiation cystitis is a consideration corticosteroids are recommended as well. RECOMMENDATIONS 1. Gross hematuria in a patient with metastatic bladder carcinoma as well as previous radiation exposure to the bladder: I would recommend empirically initiating oral corticosteroids for possible radiation cystitis. I recommend changing out his Pena catheter to a 22-Vincentian for bladder irrigation. 2. Continue supportive transfusions to maintain hemoglobin over 8 g/dL. 3. I will consult interventional radiology for placement of bilateral nephrostomy tubes to divert his urine. MD ALEXUS Harris/KENDRA /9:54 AM /1:04 PM
[2017-10-18] MEDS: TAMSULOSIN HCL 0.4 MG CAP PO SCH (21:50)
[2017-10-18] MEDS: URIBEL PO SCH (21:51)
[2017-10-18] MEDS: HYDROmorphone HCL PF 2 MG/ML VIAL IV PUSH PRN (22:06)
[2017-10-19] VITALS (10 sets, daily range): BP systolic 140–169; BP diastolic 70–79; PULSE 70–89; RESP 15–18; TEMP 97.2–98.6; O2SAT 94–98
[2017-10-19] MEDS: DEXAMETHASONE SOD PHOS 4 MG/ML VIAL IV PUSH SCH ×5 (00:56→23:40)
[2017-10-19] MEDS: valACYclovir HCL 500 MG TAB PO SCH ×3 (06:00→21:53)
[2017-10-19] MEDS: AMINOCAPROIC ACID 500 MG TAB PO SCH ×4 (06:33→23:40)
[2017-10-19 07:19] LABS: AUTOMATED NEUTROPHIL # 7.1 TH/MM3 (1.8-7.7); BASOPHIL % 0.2 % (0.0-2.0); HEMATOCRIT 28.7 % (39.0-51.0); HEMOGLOBIN 9.8 GM/DL (13.0-17.0); LYMPH % 7.3 % (9.0-44.0); LYMPHOCYTE # 0.6 TH/MM3 (1.0-4.8); MEAN CORPUSCULAR HEMOGLOBIN 30.6 PG (27.0-34.0); MEAN CORPUSCULAR HGB CONC 34.3 % (32.0-36.0); MEAN PLATELET VOLUME 6.9 FL (7.0-11.0); MONO % 2.6 % (0.0-8.0); MONOCYTE # 0.2 TH/MM3 (0-0.9); NEUT % 89.9 % (16.0-70.0); PLATELET COUNT 171 TH/MM3 (150-450); RED BLOOD COUNT 3.22 MIL/MM3 (4.50-5.90); RED CELL DISTRIBUTION WIDTH 16.5 % (11.6-17.2); WHITE BLOOD COUNT 7.9 TH/MM3 (4.0-11.0)
[2017-10-19 07:42] LABS: BICARBONATE 19.3 MEQ/L (21.0-32.0); CALCIUM 7.8 MG/DL (8.5-10.1); CREATININE 2.41 MG/DL (0.60-1.30)
[2017-10-19] MEDS: LEVOTHYROXINE SODIUM 125 MCG TAB PO SCH (09:49)
[2017-10-19] MEDS: SODIUM CHLOR 0.45% 1000 ML INJ 1,000 ML IV SCH (09:49)
[2017-10-19] MEDS: FINASTERIDE 5 MG TAB PO SCH (09:50)
[2017-10-19] MEDS: SODIUM CHLORIDE 0.9% FLUSH 10 ML FLUSH IV FLUSH SCH ×2 (09:51→21:54)
[2017-10-19] MEDS: URIBEL PO SCH ×2 (09:51→21:54)
[2017-10-19] MEDS: MAGNESIUM HYDROXIDE SUSP 30 ML CUP PO PRN (13:19)
--- NOTE | 2017-10-19 16:19 | PD.ONC.PN ---
Subjective Subjective Remarks Subjectively; patient reports feeling better after transfusion yesterday. He now is on continuous bladder irrigation. He is happy to note his urine color has changed from being a red to being more clear. He denies acute complaints. There were no acute cardiopulmonary events reported overnight. Objective Data Date Time Temp Pulse Resp B/P (MAP) Pulse Ox O2 Delivery O2 Flow Rate FiO2 10/19/17 12:00 97.3 83 18 152/72 (98) 97 10/19/17 08:45 Room Air 10/19/17 08:00 97.2 72 18 143/74 (97) 94 10/19/17 04:00 98.6 87 16 140/73 (95) 98 10/19/17 04:00 79 10/19/17 00:00 79 10/19/17 00:00 98.6 87 15 145/70 (95) 96 10/19/17 00:00 Room Air 10/18/17 21:50 Room Air 10/18/17 20:00 86 10/18/17 20:00 98.5 85 15 145/73 (97) 96 10/19/17 10/19/17 10/19/17 07:00 15:00 23:00 Intake Total 670 ml Output Total 2375 ml Balance -1705 ml Result Diagram: 10/19/17 0550 10/19/17 0550 Laboratory Results Laboratory Tests Test 10/19/17 05:50 White Blood Count 7.9 TH/MM3 Red Blood Count 3.22 MIL/MM3 Hemoglobin 9.8 GM/DL Hematocrit 28.7 % Mean Corpuscular Volume 89.0 FL Mean Corpuscular Hemoglobin 30.6 PG Mean Corpuscular Hemoglobin Concent 34.3 % Red Cell Distribution Width 16.5 % Platelet Count 171 TH/MM3 Mean Platelet Volume 6.9 FL Neutrophils (%) (Auto) 89.9 % Lymphocytes (%) (Auto) 7.3 % Monocytes (%) (Auto) 2.6 % Eosinophils (%) (Auto) 0.0 % Basophils (%) (Auto) 0.2 % Neutrophils # (Auto) 7.1 TH/MM3 Lymphocytes # (Auto) 0.6 TH/MM3 Monocytes # (Auto) 0.2 TH/MM3 Eosinophils # (Auto) 0.0 TH/MM3 Basophils # (Auto) 0.0 TH/MM3 CBC Comment AUTO DIFF Differential Comment AUTO DIFF CONFIRMED Platelet Estimate NORMAL Platelet Morphology Comment NORMAL Crenated Cell 1+ Blood Urea Nitrogen 42 MG/DL Creatinine 2.41 MG/DL Random Glucose 188 MG/DL Calcium Level 7.8 MG/DL Sodium Level 138 MEQ/L Potassium Level 4.0 MEQ/L Chloride Level 108 MEQ/L Carbon Dioxide Level 19.3 MEQ/L Anion Gap 11 MEQ/L Estimat Glomerular Filtration Rate 26 ML/MIN Administered Medications Medications (Trade) Dose Ordered Sig/Trisha Route PRN Reason Start Time Stop Time Status Last Admin Dose Admin Sodium Chloride (NS Flush) 2 ml UNSCH PRN IVF FLUSH AFTER USING IV ACCESS 10/16/17 08:00 10/16/17 08:27 Sodium Chloride (NS Flush) 2 ml BID IV FLUSH 10/16/17 21:00 10/19/17 09:51 Magnesium Hydroxide (Milk Of David Liq) 30 ml Q12H PRN PO Mild constipation 10/16/17 09:15 10/19/17 13:19 Amlodipine Besylate (Norvasc) 10 mg DAILY PO 10/17/17 09:00 10/19/17 09:50 Finasteride (Proscar) 5 mg DAILY PO 10/17/17 09:00 10/19/17 09:50 Levothyroxine Sodium (Synthroid) 125 mcg DAILY PO 10/17/17 09:00 10/19/17 09:49 Tamsulosin HCl (Flomax) 0.4 mg HS PO 10/16/17 21:00 10/18/17 21:50 Acetaminophen/ Hydrocodone Bitart ([place] 5-325 Mg) 1 tab Q4H PRN PO pain 1-5 10/16/17 14:00 10/18/17 06:29 Hydromorphone HCl (Dilaudid Pf Inj) 0.5 mg Q4H PRN IV PUSH pain 6-10 10/16/17 14:00 10/18/17 22:06 Valacyclovir HCl (Valtrex) 1,000 mg Q8HR PO 10/16/17 22:00 10/23/17 21:59 10/19/17 13:20 Aminocaproic Acid (Amicar) 500 mg Q6HR PO 10/17/17 19:00 10/19/17 13:19 Dexamethasone Sodium Phosphate (Decadron Inj) 4 mg Q6HR IV PUSH 10/18/17 12:00 10/19/17 13:19 Patient Own Medication PT OWN MED: [place]... BID PO 10/18/17 21:00 10/19/17 09:51 Objective Remarks GENERAL: Elderly male, laying in bed, appears to be pale and chronically ill. He appears frail. SKIN: Warm and dry. HEAD: Normocephalic. EYES: No scleral icterus. No injection or drainage. Conjunctivae are pale. NECK: Supple, trachea midline. No JVD or lymphadenopathy. LYMPHATIC: No adenopathy. CARDIOVASCULAR: Regular rate and rhythm without murmurs. RESPIRATORY: Breath sounds equal bilaterally. No accessory muscle use. GASTROINTESTINAL: Abdomen soft, non-tender, nondistended. EXTREMITIES: No cyanosis, or edema. MUSCULOSKELETAL: Generally decreased muscle mass tone and strength. Atrophic muscles generally noted. NEUROLOGICAL: No obvious focal deficit. Awake, alert, and oriented x3. PSYCHIATRIC: Appropriate mood and affect; insight and judgment normal. Pena catheter bag examined, urine appears to have a blue/green tinged with specks of blood mixed into it. Assessment/Plan Assessment I did have a detailed discussion with Dr. Flores. Dr. Flores is the on-call urologist who is familiar with this patient's case given Mr. Ludwig's repeated hospitalizations over the past few months at both [facility] as well as [facility] in [place]. Dr. Flores recommends the patient undergo bilateral nephrostomy tube placement. He also recommends we consider changing out the patient's current Pena catheter to a larger one so he can undergo continuous bladder irrigation to prevent an occlusive clot from developing within the bladder. Additionally, because radiation cystitis is a consideration corticosteroids are recommended as well. Plan 1. Metastatic bladder carcinoma: Has been on palliative systemic immunotherapy with no Pena map for the past 12 months under the care of Dr. Arnaldo Machado of the [place] [facility]. The patient's outpatient urologist is Dr. Maldonado of [facility]. The patient will resume outpatient palliative systemic therapy should the treatment be assessed to be effective and his disease noted to be responding in a positive way. 2. 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 In the meantime he will continue continuous bladder irrigation. 3. Patient has been advised bilateral nephrostomy tubes by urology; interventional radiology consultation has been placed. Hemoglobin and hematocrit are stable after transfusion yesterday. Hematuria at present is minimal. If his hematuria remains under control, it may be reasonable to discontinue continuous bladder irrigation to assess for resumption of bleeding. If he does not develop hematuria I would assume either the continuous bladder irrigation or corticosteroids have helped manage the bleeding. Kb Glover MD Oct 19, 2017 16:19
--- NOTE | 2017-10-19 16:34 | HHI.PR ---
Subjective Remarks Patient offers no specific complaints CBI running no blood noted in Skinner bag Objective Vitals Vital Signs Date Time Temp Pulse Resp B/P (MAP) Pulse Ox O2 Delivery O2 Flow Rate FiO2 10/19/17 12:00 97.3 83 18 152/72 (98) 97 10/19/17 08:45 Room Air 10/19/17 08:00 97.2 72 18 143/74 (97) 94 10/19/17 04:00 98.6 87 16 140/73 (95) 98 10/19/17 04:00 79 10/19/17 00:00 79 10/19/17 00:00 98.6 87 15 145/70 (95) 96 10/19/17 00:00 Room Air 10/18/17 21:50 Room Air 10/18/17 20:00 86 10/18/17 20:00 98.5 85 15 145/73 (97) 96 10/19/17 10/19/17 10/20/17 15:00 23:00 07:00 Intake Total 100 ml Balance 100 ml IV Total 100 ml Result Diagram: 10/19/17 0550 10/19/17 0550 Other Results Laboratory Tests Test 10/17/17 07:01 10/18/17 10:01 10/19/17 05:50 White Blood Count 8.6 TH/MM3 5.7 TH/MM3 7.9 TH/MM3 Red Blood Count 2.64 MIL/MM3 2.22 MIL/MM3 3.22 MIL/MM3 Hemoglobin 8.2 GM/DL 7.0 GM/DL 9.8 GM/DL Hematocrit 23.2 % 20.2 % 28.7 % Mean Corpuscular Volume 88.0 FL 91.4 FL 89.0 FL Mean Corpuscular Hemoglobin 31.0 PG 31.4 PG 30.6 PG Mean Corpuscular Hemoglobin Concent 35.3 % 34.4 % 34.3 % Red Cell Distribution Width 18.2 % 18.2 % 16.5 % Platelet Count 214 TH/MM3 174 TH/MM3 171 TH/MM3 Mean Platelet Volume 6.6 FL 7.0 FL 6.9 FL Neutrophils (%) (Auto) 83.2 % 83.3 % 89.9 % Lymphocytes (%) (Auto) 6.9 % 7.9 % 7.3 % Monocytes (%) (Auto) 7.6 % 6.8 % 2.6 % Eosinophils (%) (Auto) 1.6 % 1.7 % 0.0 % Basophils (%) (Auto) 0.7 % 0.3 % 0.2 % Neutrophils # (Auto) 7.2 TH/MM3 4.8 TH/MM3 7.1 TH/MM3 Lymphocytes # (Auto) 0.6 TH/MM3 0.5 TH/MM3 0.6 TH/MM3 Monocytes # (Auto) 0.7 TH/MM3 0.4 TH/MM3 0.2 TH/MM3 Eosinophils # (Auto) 0.1 TH/MM3 0.1 TH/MM3 0.0 TH/MM3 Basophils # (Auto) 0.1 TH/MM3 0.0 TH/MM3 0.0 TH/MM3 CBC Comment AUTO DIFF DIFF FINAL AUTO DIFF Differential Total Cells Counted 100 Neutrophils % (Manual) 84 % Band Neutrophils % 1 % Lymphocytes % 8 % Monocytes % 4 % Eosinophils % 1 % Neutrophils # (Manual) 7.5 TH/MM3 Metamyelocytes 2 % Nucleated Red Blood Cells 4 /100 WBC Differential Comment FINAL DIFF MANUAL AUTO DIFF CONFIRMED Platelet Estimate NORMAL NORMAL Platelet Morphology Comment NORMAL NORMAL Basophilic Stippling FAINT Keratocytes OCC Blood Urea Nitrogen 52 MG/DL 40 MG/DL 42 MG/DL Creatinine 2.83 MG/DL 2.50 MG/DL 2.41 MG/DL Random Glucose 136 MG/DL 164 MG/DL 188 MG/DL Calcium Level 8.3 MG/DL 7.8 MG/DL 7.8 MG/DL Sodium Level 141 MEQ/L 139 MEQ/L 138 MEQ/L Potassium Level 4.1 MEQ/L 3.5 MEQ/L 4.0 MEQ/L Chloride Level 110 MEQ/L 108 MEQ/L 108 MEQ/L Carbon Dioxide Level 20.4 MEQ/L 19.4 MEQ/L 19.3 MEQ/L Anion Gap 11 MEQ/L 12 MEQ/L 11 MEQ/L Estimat Glomerular Filtration Rate 21 ML/MIN 25 ML/MIN 26 ML/MIN Magnesium Level 1.8 MG/DL Crenated Cell 1+ Imaging Last Impressions Chest X-Ray 10/16/17 0911 Signed Impressions: Service Date/Time: October 09:18 - CONCLUSION: 1. Cardiomegaly. No acute pulmonary disease. Ron Lopez MD Objective Remarks GENERAL: This is a elderly 82 year old male patient CARDIOVASCULAR: Regular rate and rhythm RESPIRATORY: Clear to auscultation. Breath sounds equal bilaterally. GASTROINTESTINAL: Abdomen soft, non-tender, nondistended. Normal active bowel sounds GENITOURINARY: Skinner in place with CBI, urine nonbloody MUSCULOSKELETAL: Extremities without clubbing, cyanosis, or edema. NEURO: Alert & Oriented x4 to person, place, time, situation. 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 He follows with Dr. Maldonado. Pt had a cystoscopy with reported cauterization about [address] Maldonado. Patient was recently admitted to [facility] [place] on 10/12/17 for . Patient then had Skinner catheter removed and bladder irrigation on 10/15/16. Patient returned to ER 10/16/17 with abdominal pain secondary to urinary obstruction. Pts labs at admission noted Hgb 6.1/Hct 18.4. Pt is being admitted for for transfusion and urology evaluation. bilateral hydroureteronephrosis related to bladder cancer status post bilateral stent placement - Hg 6.1 (10/16), 8.2 (10/17), 7.0 (10/18), 9.8 (10/19) - Pt transfused 2 units PRBCs (10/16) and (10/18) - skinner in place - gross hematuria improved after CBI and dexamethasone - Case d/w Dr. Thorne, Urology, (10/16). He recommends continue skinner catheter with irrigation as needed - IVFs - Case d/w Oncology, Dr. Glvoer (10/17) and (10/18) consult placed to IR to place percutaneous nephrostomy tubes - Dr. Moreno discussed the case with Urology Dr. Flores. Plan is to have IR place percutaneous nephrostomy tubes to divert the urine away from the bladder. - Records from pt's [place] Oncologist and place in paper chart - stop IVFs - obtain repeat CBC, BMP in AM - continue PT - may need SNF at end of hospitalization - DVT prophylaxis - supportive care (2) Abdominal pain ICD Codes: R10.9 - Unspecified abdominal pain Status: Acute Plan: see above (3) Symptomatic anemia ICD Codes: D64.9 - Anemia, unspecified Status: Acute Plan: On admission patient's hgb was 6.1 - 10/16/17 -> 2 units PRBC 10/18/17 hgb 7.0, 2 units PRBC (4) Metastatic urothelial carcinoma ICD Codes: C79.10 - Secondary malignant neoplasm of unspecified urinary organs Status: Chronic Plan: - see above (5) Acute kidney injury superimposed on CKD ICD Codes: N17.9 - Acute kidney failure, unspecified; N18.9 - Chronic kidney disease, unspecified Status: Acute Plan: Elevated renal function likely secondary retention On admission BUN 55 creatinine 3.37 estimated GFR 18 Skinner catheter placed and draining IV fluids monitor renal function - Cr 2.83 (10/17), 2.41 (10/19) (6) Recurrent deep vein thrombosis (DVT) ICD Codes: I82.409 - Acute embolism and thrombosis of unspecified deep veins of unspecified lower extremity Plan: - Pt had IVC filter placed in 07/2017. He could not tolerate anticoagulants due to hematuria. (7) HTN (hypertension), benign ICD Codes: I10 - Essential (primary) hypertension Status: Chronic Plan: - Home meds continued - Clonidine PRN (8) Hypothyroidism ICD Codes: E03.9 - Hypothyroidism, unspecified Status: Chronic Plan: - Home meds continued (9) Shingles ICD Codes: B02.9 - Zoster without complications Status: Acute Plan: Valtrex norco prn Assessment and Plan Patient examined. Assessment and plan formulated with Malu Trotter PA-C. I agree with the above. Malu Trotter Oct 19, 2017 16:34 Dustin Moreno DO Oct 22, 2017 23:57
[2017-10-19] MEDS: TAMSULOSIN HCL 0.4 MG CAP PO SCH (21:53)
[2017-10-19] MEDS: ACETAMINOPHEN/HYDROcodone 325 MG/5 MG TAB PO PRN (21:53)
[2017-10-20] VITALS (14 sets, daily range): BP systolic 140–160; BP diastolic 71–84; PULSE 66–95; RESP 18–21; TEMP 97.4–98.6; O2SAT 92–96
[2017-10-20] MEDS: ACETAMINOPHEN/HYDROcodone 325 MG/5 MG TAB PO PRN ×2 (02:47→21:22)
[2017-10-20] MEDS: valACYclovir HCL 500 MG TAB PO SCH ×3 (05:47→21:21)
[2017-10-20] MEDS: AMINOCAPROIC ACID 500 MG TAB PO SCH ×3 (05:47→18:00)
[2017-10-20] MEDS: DEXAMETHASONE SOD PHOS 4 MG/ML VIAL IV PUSH SCH ×3 (05:47→18:00)
[2017-10-20 07:58] LABS: AUTOMATED NEUTROPHIL # 9.3 TH/MM3 (1.8-7.7); BASOPHIL % 0.2 % (0.0-2.0); HEMATOCRIT 28.5 % (39.0-51.0); HEMOGLOBIN 9.6 GM/DL (13.0-17.0); LYMPH % 6.3 % (9.0-44.0); LYMPHOCYTE # 0.7 TH/MM3 (1.0-4.8); MEAN CELL VOLUME 90.2 FL (80.0-100.0); MEAN CORPUSCULAR HEMOGLOBIN 30.4 PG (27.0-34.0); MEAN CORPUSCULAR HGB CONC 33.7 % (32.0-36.0); MEAN PLATELET VOLUME 6.9 FL (7.0-11.0); MONO % 4.9 % (0.0-8.0); MONOCYTE # 0.5 TH/MM3 (0-0.9); NEUT % 88.6 % (16.0-70.0); PLATELET COUNT 206 TH/MM3 (150-450); RED BLOOD COUNT 3.16 MIL/MM3 (4.50-5.90); RED CELL DISTRIBUTION WIDTH 16.6 % (11.6-17.2); WHITE BLOOD COUNT 10.5 TH/MM3 (4.0-11.0)
[2017-10-20 08:12] LABS: CREATININE 2.72 MG/DL (0.60-1.30)
--- NOTE | 2017-10-20 08:22 | HHI.PR ---
Subjective Remarks no complaints Objective Vitals heart reg lung cta abd s/nt ext no edema cbi/skinner Vital Signs Date Time Temp Pulse Resp B/P (MAP) Pulse Ox O2 Delivery O2 Flow Rate FiO2 10/20/17 04:00 97.5 75 20 155/78 (103) 96 10/20/17 03:41 66 10/20/17 00:00 98.0 85 20 155/80 (105) 96 10/19/17 23:39 79 10/19/17 21:47 Room Air 10/19/17 20:04 98.0 89 18 169/79 (109) 96 10/19/17 20:00 77 10/19/17 16:00 97.7 73 18 155/77 (103) 96 10/19/17 15:43 76 10/19/17 12:00 97.3 83 18 152/72 (98) 97 10/19/17 08:45 Room Air Result Diagram: 10/20/17 0730 10/20/17 0730 Imaging Last Impressions Chest X-Ray 10/16/17 0911 Signed Impressions: Service Date/Time: October 09:18 - CONCLUSION: 1. Cardiomegaly. No acute pulmonary disease. 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 He follows with Dr. Maldonado. Pt had a cystoscopy with reported cauterization about [address] Maldonado. Patient was recently admitted [place] [facility] [place] 10/12/17 for blood transfusion Patient then had Skinner catheter removed and bladder irrigation on 10/15/16. Patient returned to ER 10/16/17 with abdominal pain secondary to urinary obstruction. Pts labs at admission noted Hgb 6.1/Hct 18.4. Pt is being admitted for for transfusion and urology evaluation. bilateral hydroureteronephrosis related to bladder cancer status post bilateral stent placement - Hem/onc managing hematuria. -pt getting cbi with 22F skinner and iv steroids for possible radiation cystitis ..also getting amicar. -going for bilateral nephrostomy tubes today -will plan to d/c to snf once ok with hem/onc - DVT prophylaxis - supportive care (2) Abdominal pain ICD Codes: R10.9 - Unspecified abdominal pain Status: Acute Plan: see above (3) Symptomatic anemia ICD Codes: D64.9 - Anemia, unspecified Status: Acute Plan: On admission patient's hgb was 6.1 - see above (4) Metastatic urothelial carcinoma ICD Codes: C79.10 - Secondary malignant neoplasm of unspecified urinary organs Status: Chronic Plan: - see above (5) Acute kidney injury superimposed on CKD ICD Codes: N17.9 - Acute kidney failure, unspecified; N18.9 - Chronic kidney disease, unspecified Status: Acute Plan: Elevated renal function likely secondary retention On admission BUN 55 creatinine 3.37 estimated GFR 18 Skinner catheter placed and draining IV fluids monitor renal function (6) Recurrent deep vein thrombosis (DVT) ICD Codes: I82.409 - Acute embolism and thrombosis of unspecified deep veins of unspecified lower extremity Plan: - Pt had IVC filter placed in 07/2017. He could not tolerate anticoagulants due to hematuria. (7) HTN (hypertension), benign ICD Codes: I10 - Essential (primary) hypertension Status: Chronic Plan: - Home meds continued - Clonidine PRN (8) Hypothyroidism ICD Codes: E03.9 - Hypothyroidism, unspecified Status: Chronic Plan: - Home meds continued (9) Shingles ICD Codes: B02.9 - Zoster without complications Status: Acute Plan: Valtrex norco prn Buck Rey MD Oct 20, 2017 08:22
[2017-10-20] MEDS: FINASTERIDE 5 MG TAB PO SCH (09:01)
[2017-10-20] MEDS: LEVOTHYROXINE SODIUM 125 MCG TAB PO SCH (09:01)
[2017-10-20] MEDS: URIBEL PO SCH ×2 (09:01→21:19)
[2017-10-20] MEDS: SODIUM CHLORIDE 0.9% FLUSH 10 ML FLUSH IV FLUSH SCH ×2 (09:02→21:23)
[2017-10-20] MEDS ORDERED: MIDAZOLAM HCL 2 MG/2 ML VIAL ONE ×2 (10:37→12:03)
[2017-10-20] MEDS ORDERED: LEVOFLOXACIN 500 MG PREMIX INJ 100 ML IV ONE (10:56)
--- NOTE | 2017-10-20 11:10 | HHI.PR ---
Subjective Patient symptoms today Dr. Flores was contacted over the weekend for ongoing hematuria and recommended continuous bladder irrigation and consideration of bilateral percutaneous nephrostomy tubes. Patient is scheduled to have the nephrostomy tubes placed today by interventional radiology. Presently denies complaints. Reports that the hematuria has resolved. Objective Vital Signs Vital Signs Date Time Temp Pulse Resp B/P (MAP) Pulse Ox O2 Delivery O2 Flow Rate FiO2 10/20/17 08:00 97.4 71 21 160/75 (103) 94 10/20/17 04:00 97.5 75 20 155/78 (103) 96 10/20/17 03:41 66 10/20/17 00:00 98.0 85 20 155/80 (105) 96 10/19/17 23:39 79 10/19/17 21:47 Room Air 10/19/17 20:04 98.0 89 18 169/79 (109) 96 10/19/17 20:00 77 10/19/17 16:00 97.7 73 18 155/77 (103) 96 10/19/17 15:43 76 10/19/17 12:00 97.3 83 18 152/72 (98) 97 Intake & Output 10/20/17 10/20/17 07:00 19:00 Intake Total 660 ml Output Total 1250 ml Balance -590 ml Intake Oral 660 ml Output Urine Total 1250 ml # Voids 3 # Bowel Movements 1 Result Diagram: 10/20/17 0730 10/20/17 0730 Objective Remarks Abdomen soft, nondistended, nontender Bladder not distended Pena catheter in place with resolution of the hematuria (continuous bladder irrigation clamped off) Medications and IVs Current Medications Medications (Trade) Dose Ordered Sig/Trisha Route Start Time Stop Time Status Last Admin (NS Flush) 2 ml UNSCH PRN IVF 10/16/17 08:00 10/16/17 08:27 (NS Flush) 2 ml UNSCH PRN IV FLUSH 10/16/17 09:15 (NS Flush) 2 ml BID IV FLUSH 10/16/17 21:00 10/20/17 09:02 (Tylenol) 650 mg Q4H PRN PO 10/16/17 09:15 (Zofran Inj) 4 mg Q6H PRN IVP 10/16/17 09:15 (Narcan Inj) 0.4 mg UNSCH PRN IV PUSH 10/16/17 09:15 (Milk Of Magnesia Liq) 30 ml Q12H PRN PO 10/16/17 09:15 10/19/17 13:19 (Norvasc) 10 mg DAILY PO 10/17/17 09:00 10/20/17 09:01 (Proscar) 5 mg DAILY PO 10/17/17 09:00 10/20/17 09:01 (Synthroid) 125 mcg DAILY PO 10/17/17 09:00 10/20/17 09:01 (Flomax) 0.4 mg HS PO 10/16/17 21:00 10/19/17 21:53 ([place] 5-325 Mg) 1 tab Q4H PRN PO 10/16/17 14:00 10/20/17 02:47 (Dilaudid Pf Inj) 0.5 mg Q4H PRN IV PUSH 10/16/17 14:00 10/18/17 22:06 (Valtrex) 1,000 mg Q8HR PO 10/16/17 22:00 10/23/17 21:59 10/20/17 05:47 (Amicar) 500 mg Q6HR PO 10/17/17 19:00 10/20/17 05:47 (Decadron Inj) 4 mg Q6HR IV PUSH 10/18/17 12:00 10/20/17 05:47 Patient Own Medication PT OWN MED: [place]... BID PO 10/18/17 21:00 10/20/17 09:01 Assessment and Plan Assessment and Plan Urologic impression: #1 gross hematuria related to patient's known history of metastatic bladder cancer now resolved #2 bilateral hydroureteronephrosis related to bladder cancer status post bilateral stent placement #3 agree with palliative bilateral nephrostomy tube placement as recommended by . Recommendations: #1 Pena catheter to gravity drainage and removed after bilateral nephrostomy tubes draining clear yellow urine #2 irrigate Pena when necessary #3 patient to keep his follow up appointment with Dr. Maldonado his established urologist after hospital discharge #4 nothing further to add at this time Jcak Thorne MD Oct 20, 2017 11:10
[2017-10-20] MEDS ORDERED: IOHEXOL 350 MG/ML 50 ML BTL (for Cath Lab) IVCONTRAST ONE (12:32)
--- NOTE | 2017-10-20 13:12 | HHI.HCPN ---
Made attempt to see patient. Currently undergoing procedure. Spoke with . Will f/u tomorrow. Baldev Hill MD Oct 20, 2017 13:12
--- NOTE | 2017-10-20 13:53 | PD.RAD ---
Post Procedure Progress Note Pre Procedure Diagnosis: (1) Hydronephrosis due to obstructive malignant bladder cancer (2) Hematuria Post Procedure Diagnosis: (1) Hematuria (2) Hydronephrosis due to obstructive malignant bladder cancer Procedure Date: Oct 20, 2017 Supervising Radiologist: Juan Henderson Proceduralist/Assist: Antolin Lawrence, RT(R), Ignacia Fleming, RT(R) Anesthesia: Local, Analgesia, Conscious Sedation Plan of Activity Patient to Unit: ROPU Patient Condition: Good See PACS Report for procedural detail/treatment Drainage Procedure Procedure 1 Imaging Guidance: Fluoroscopy, Ultrasound Side: Bilateral Procedure Type: Nephrostomy Procedure: Placement Slovak: 8 Fluid Description: Bloody, Other (greenish-blue) Juan Henderson MD Oct 20, 2017 13:53
[2017-10-20] MEDS: TAMSULOSIN HCL 0.4 MG CAP PO SCH (21:20)
[2017-10-21] VITALS (11 sets, daily range): BP systolic 135–159; BP diastolic 75–83; PULSE 71–98; RESP 16–18; TEMP 97.6–98.3; O2SAT 94–96
[2017-10-21] MEDS: DEXAMETHASONE SOD PHOS 4 MG/ML VIAL IV PUSH SCH ×4 (00:54→18:00)
[2017-10-21] MEDS: AMINOCAPROIC ACID 500 MG TAB PO SCH ×4 (00:55→18:00)
[2017-10-21] MEDS: valACYclovir HCL 500 MG TAB PO SCH ×3 (05:23→21:01)
--- NOTE | 2017-10-21 08:25 | HHI.PR ---
Subjective Remarks no complaints Objective Vitals heart reg lung cta abd s/nt ext no edema skinner..green urine right nephrostomy tube bloody left nephrostomy tube tea color Vital Signs Date Time Temp Pulse Resp B/P (MAP) Pulse Ox O2 Delivery O2 Flow Rate FiO2 10/21/17 04:23 71 10/21/17 04:00 98.0 85 18 150/82 (104) 95 10/21/17 00:00 97.6 83 18 145/75 (98) 96 10/20/17 23:56 82 10/20/17 20:07 88 10/20/17 20:00 98.3 95 18 150/81 (104) 95 10/20/17 19:00 Room Air 10/20/17 16:06 77 10/20/17 16:00 98.3 75 20 140/73 (95) 95 10/20/17 13:45 84 20 145/84 (104) 94 10/20/17 13:15 85 20 144/82 (102) 92 10/20/17 13:00 92 20 141/82 (101) 94 10/20/17 12:45 98.6 74 20 158/71 (100) 92 Result Diagram: 10/20/17 0730 10/20/17 0730 Imaging Last Impressions Chest X-Ray 10/16/17 0911 Signed Impressions: Service Date/Time: October 09:18 - CONCLUSION: 1. Cardiomegaly. No acute pulmonary disease. 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 He follows with Dr. Maldonado. Pt had a cystoscopy with reported cauterization about [address] Maldonado. Patient was recently admitted to [facility] [place] on 10/12/17 for blood transfusion Patient then had Skinner catheter removed and bladder irrigation on 10/15/16. Patient returned to ER 10/16/17 with abdominal pain secondary to urinary obstruction. Pts labs at admission noted Hgb 6.1/Hct 18.4. Pt is being admitted for for transfusion and urology evaluation. bilateral hydroureteronephrosis related to bladder cancer status post bilateral stent placement -s/p bilateral nephrostomy tubes 10/20 -spoke to Urology ...ok to pull skinner when nephrostomy tubes drainage light pink -cbi stopped cont steroids/amicar d/c to snf once ok with Urology addendum: spoke with dr Henderson. stents need removed before d/c..He spoke with dr Thorne who will schedule the procedure this week. (2) Abdominal pain ICD Codes: R10.9 - Unspecified abdominal pain Status: Acute Plan: see above (3) Symptomatic anemia ICD Codes: D64.9 - Anemia, unspecified Status: Acute Plan: On admission patient's hgb was 6.1 - see above (4) Metastatic urothelial carcinoma ICD Codes: C79.10 - Secondary malignant neoplasm of unspecified urinary organs Status: Chronic Plan: - see above (5) Acute kidney injury superimposed on CKD ICD Codes: N17.9 - Acute kidney failure, unspecified; N18.9 - Chronic kidney disease, unspecified Status: Acute Plan: Elevated renal function likely secondary retention On admission BUN 55 creatinine 3.37 estimated GFR 18 Skinner catheter placed and draining IV fluids monitor renal function (6) Recurrent deep vein thrombosis (DVT) ICD Codes: I82.409 - Acute embolism and thrombosis of unspecified deep veins of unspecified lower extremity Plan: - Pt had IVC filter placed in 07/2017. He could not tolerate anticoagulants due to hematuria. (7) HTN (hypertension), benign ICD Codes: I10 - Essential (primary) hypertension Status: Chronic Plan: - Home meds continued - Clonidine PRN (8) Hypothyroidism ICD Codes: E03.9 - Hypothyroidism, unspecified Status: Chronic Plan: - Home meds continued (9) Shingles ICD Codes: B02.9 - Zoster without complications Status: Acute Plan: Valtrex norco prn Buck Rey MD Oct 21, 2017 08:25
[2017-10-21] MEDS: SODIUM CHLORIDE 0.9% FLUSH 10 ML FLUSH IV FLUSH SCH ×2 (08:42→21:02)
[2017-10-21] MEDS: LEVOTHYROXINE SODIUM 125 MCG TAB PO SCH (08:42)
[2017-10-21] MEDS: URIBEL PO SCH ×2 (08:42→21:02)
[2017-10-21] MEDS: FINASTERIDE 5 MG TAB PO SCH (08:42)
--- NOTE | 2017-10-21 14:27 | RADRPT ---
EXAM DATE/TIME: 10/20/2017 11:56 [facility] COMPARISON: No previous studies available for comparison. INDICATIONS : Patient with a history of bladder cancer. MEDICAL HISTORY : Chronic kidney desease Metastatic urothelial carcinoma of the bladder Hydronephrosis DVT HTN Diabetes Hypothyroidism Chronic anemia Cataracts SURGICAL HISTORY : IVC filer Cystoscopy with ureteral stent placement Bilateral cataract surgery Hernia repair Varicose vein ligation ENCOUNTER: Initial ACUITY: 4 - 6 months PAIN SCORE: 5/10 LOCATION: low back FLUORO TIME: 10.1 minutes IMAGE SERIES: 3 SEDATION TIME: 60 minutes CONTRAST: 20 cc Omnipaque (iohexol) 350 MEDICATION(S): 1.) 3.5 mg midazolam (Versed) IV 2.) 175 mcg fentanyl (Sublimaze) IV DEVICE(S): 1.) 8 [place]ogolese nephrostomy catheter PROCEDURE : 1. Ultrasound-guided puncture of the kidney. 2. Antegrade percutaneous pyelogram. 3. Percutaneous nephrostomy placement. 4. Conscious sedation with continuous EKG and oximetry monitoring. The risks, benefits and alternatives to the procedure were explained and verbal and written consent w as obtained. The site was prepped in sterile fashion. Full sterile technique was used, including ca p, mask, sterile gloves and gown and a large sterile sheet. Hand hygiene and 2% chlorhexidine and/or betadine/alcohol prep was utilized per protocol for cutaneous antisepsis. Sterile gel and sterile probe cover were utilized for ultrasound guidance. The skin and subcutaneous tissues were infiltrate d with local anesthetic solution. With the patient prone on the angio table, bill clerk images the back demonstrated the double-J stent pres umably traversing the left ureter. Area over the proximal [place] loop was anesthetized and a 22 gauge s abril needle was advanced down to the [place] loop. Inner stylette was removed. There was free flow of a bluish green tinted urine. CO2 was injected to delineate the posterior calyceal system. A lower pole calyx was selected. This area was again anesthetized with an additional 5 cc 1% Xylocaine. Dermatoto my was made with a lumbar scalpel. Access to the lower pole calyx was made with the 18 gauge Galarza blunt needle. With the tip appropriately positioned in the collecting system, a straight Glidewire wa s advanced into the collecting system. The wire was advanced down the ureter with the aid of a hockey -stick catheter. Over the wire, the tract was serially dilated to accommodate the 8 Togolese [place] loop drainage catheter . Catheter was secured to the skin surface with 2-0 silk suture and a Percufix device. Conscious sedation was performed with the prescribed dosages and duration as above in the presence of an independent trained radiology nurse to assist in the monitoring of the patient. EKG and oximetry remained stable throughout the procedure. The patient tolerated the procedure well and there were n o complications. The patient was sent to post anesthesia recovery in stable condition. CONCLUSION: Uncomplicated nephrostomy tube placement as above. Juan Henderson MD on October 21, 2017 at 14:18 Board Certified Radiologist. This report was verified electronically.
--- NOTE | 2017-10-21 14:29 | RADRPT ---
EXAM DATE/TIME: 10/20/2017 11:56 [facility] COMPARISON: NEPHROSTOMY, RIGHT, February 21, 2017, 12:00. INDICATIONS : Patient with a history of bladder cancer. MEDICAL HISTORY : Chronic kidney desease Metastatic urothelial carcinoma of the bladder Hydronephrosis DVT HTN Diabetes Hypothyroidism Chronic anemia Cataracts SURGICAL HISTORY : IVC filer Cystoscopy with ureteral stent placement Bilateral cataract surgery Hernia repair Varicose vein ligation ENCOUNTER: Initial ACUITY: 4 - 6 months PAIN SCORE: 5/10 LOCATION: low back FLUORO TIME: 10.1 minutes IMAGE SERIES: 3 SEDATION TIME: 60 minutes CONTRAST: 20 cc Omnipaque (iohexol) 350 MEDICATION(S): 1.) 3.5 mg midazolam (Versed) IV 2.) 175 mcg fentanyl (Sublimaze) IV DEVICE(S): 1.) 8 [place]ian nephrostomy catheter PROCEDURE : 1. Ultrasound-guided puncture of the kidney. 2. Antegrade percutaneous pyelogram. 3. Percutaneous nephrostomy placement. 4. Conscious sedation with continuous EKG and oximetry monitoring. The risks, benefits and alternatives to the procedure were explained and verbal and written consent w as obtained. The site was prepped in sterile fashion. Full sterile technique was used, including ca p, mask, sterile gloves and gown and a large sterile sheet. Hand hygiene and 2% chlorhexidine and/or betadine/alcohol prep was utilized per protocol for cutaneous antisepsis. Sterile gel and sterile probe cover were utilized for ultrasound guidance. The skin and subcutaneous tissues were infiltrate d with local anesthetic solution. With fluoroscopic guidance, the proximal loop of the right ureteric stent was identified. Overlying s kin was anesthetized with approximately 3 cc 1% Xylocaine. 22 gauge spinal needle was advanced down t o the [place] loop. Inner stylette was removed with free flow of bluish green urine. CO2 was injected to delineate the posterior calyceal system. A lower pole calyx was selected and an additional 5 cc of X ylocaine was utilized for local anesthetic. A dermatotomy was made of the lumbar scalpel. Access to t he collecting system through the posterior calyx was obtained with an 18 gauge Galarza blunt needle. 035 wire was advanced through the outer cannula. Over the wire, the tract was serially dilated to acc ommodate the 8 [place]ian locking [place] loop drainage catheter. Catheter was secured to the skin surface with 2-0 silk suture and a Percufix device. Conscious sedation was performed with the prescribed dosages and duration as above in the presence of an independent trained radiology nurse to assist in the monitoring of the patient. EKG and oximetry remained stable throughout the procedure. The patient tolerated the procedure well and there were n o complications. The patient was sent to post anesthesia recovery in stable condition. CONCLUSION: Uncomplicated nephrostomy tube placement as above. Juan Henderson MD on October 21, 2017 at 14:24 Board Certified Radiologist. This report was verified electronically.
--- NOTE | 2017-10-21 17:17 | HHI.PR ---
Subjective Patient symptoms today Spoke with Dr. Henderson of interventional radiology earlier today and requested my service for removal of this patient's bilateral ureteral stents. Patient presently resting comfortably and in no acute distress. Anxious to have his Pena catheter removed Objective Vital Signs Vital Signs Date Time Temp Pulse Resp B/P (MAP) Pulse Ox O2 Delivery O2 Flow Rate FiO2 10/21/17 14:04 98.3 98 18 143/78 (99) 95 10/21/17 12:01 97.7 86 18 159/83 (108) 94 10/21/17 08:01 97.7 84 18 151/83 (105) 94 10/21/17 08:00 Room Air 10/21/17 07:45 79 10/21/17 04:23 71 10/21/17 04:00 98.0 85 18 150/82 (104) 95 10/21/17 00:00 97.6 83 18 145/75 (98) 96 10/20/17 23:56 82 10/20/17 20:07 88 10/20/17 20:00 98.3 95 18 150/81 (104) 95 10/20/17 19:00 Room Air Intake & Output 10/21/17 10/21/17 07:00 19:00 Output Total 825 ml Balance -825 ml Drainage Total 825 ml Result Diagram: 10/20/1730 10/20/17 0730 Objective Remarks Abdomen soft, nondistended, nontender Bilateral nephrostomy tubes in place and draining medium to dark red urine Bladder not distended Pena catheter in place draining very dark urine consistent with old blood Medications and IVs Current Medications Medications (Trade) Dose Ordered Sig/Trisha Route Start Time Stop Time Status Last Admin (NS Flush) 2 ml UNSCH PRN IVF 10/16/17 08:00 10/16/17 08:27 (NS Flush) 2 ml UNSCH PRN IV FLUSH 10/16/17 09:15 (NS Flush) 2 ml BID IV FLUSH 10/16/17 21:00 10/21/17 08:42 (Tylenol) 650 mg Q4H PRN PO 10/16/17 09:15 (Zofran Inj) 4 mg Q6H PRN IVP 10/16/17 09:15 (Narcan Inj) 0.4 mg UNSCH PRN IV PUSH 10/16/17 09:15 (Milk Of Magnclaudio Liq) 30 ml Q12H PRN PO 10/16/17 09:15 10/19/17 13:19 (Norvasc) 10 mg DAILY PO 10/17/17 09:00 10/21/17 08:42 (Proscar) 5 mg DAILY PO 10/17/17 09:00 10/21/17 08:42 (Synthroid) 125 mcg DAILY PO 10/17/17 09:00 10/21/17 08:42 (Flomax) 0.4 mg HS PO 10/16/17 21:00 10/20/17 21:20 ([place] 5-325 Mg) 1 tab Q4H PRN PO 10/16/17 14:00 10/20/17 21:22 (Dilaudid Pf Inj) 0.5 mg Q4H PRN IV PUSH 10/16/17 14:00 10/18/17 22:06 (Valtrex) 1,000 mg Q8HR PO 10/16/17 22:00 10/23/17 21:59 10/21/17 13:24 (Amicar) 500 mg Q6HR PO 10/17/17 19:00 10/21/17 13:25 (Decadron Inj) 4 mg Q6HR IV PUSH 10/18/17 12:00 10/21/17 13:25 Patient Own Medication PT OWN MED: [facility]... BID PO 10/18/17 21:00 10/21/17 08:42 (Benadryl) 25 mg Q4H PRN PO 10/21/17 07:45 Assessment and Plan Assessment and Plan Urologic impression: #1 gross hematuria related to patient's known history of metastatic bladder cancer #2 bilateral hydroureteronephrosis related to bladder cancer status post bilateral stent placement and recent bilateral nephrostomy tube placement Recommendations: #1 Pena catheter to gravity drainage #2 irrigate Pena prn clots #3 patient scheduled for cystoscopy and removal of bilateral ureteral stents at noon tomorrow #4 nothing by mouth after midnight #5 patient to keep his follow up appointments with Dr. Maldonado, his established urologist after hospital discharge Jack Thorne MD Oct 21, 2017 17:17
--- NOTE | 2017-10-21 17:57 | HHI.HCPN ---
Reason for visit a. To assist with evaluation and management of symptoms including:general weakness. b. To assist medical decision maker(s) with: better understanding of current medical conditions; weighing benefits/burdens of medical treatment options; making medical treatment decisions. Subjective/Interval History Pt status post nephrostomy tube placement. Plan ureteral stent removal. Pt anxious to have skinner out. He states pain from shingles is tolerable. Family/friend interactions not at bedside, but did bring in living will. Advance Directives Living Will: Completed, but not made available Objective Vital Signs Date Time Temp Pulse Resp B/P (MAP) Pulse Ox O2 Delivery O2 Flow Rate FiO2 10/21/17 14:04 98.3 98 18 143/78 (99) 95 10/21/17 12:01 97.7 86 18 159/83 (108) 94 10/21/17 08:01 97.7 84 18 151/83 (105) 94 10/21/17 08:00 Room Air 10/21/17 07:45 79 10/21/17 04:23 71 10/21/17 04:00 98.0 85 18 150/82 (104) 95 10/21/17 00:00 97.6 83 18 145/75 (98) 96 10/20/17 23:56 82 10/20/17 20:07 88 10/20/17 20:00 98.3 95 18 150/81 (104) 95 10/20/17 19:00 Room Air Intake & Output 10/21/17 10/21/17 07:00 19:00 Output Total 825 ml Balance -825 ml Drainage Total 825 ml Physical Exam CONSTITUTIONAL/GENERAL: This is an frail elderly male. TUBES/LINES/DRAINS: skinner, piv. SKIN: No jaundice. Rash left buttock HEAD: Atraumatic. Normocephalic. EYES: Pupils equal and round and reactive. Extraocular motions intact. No scleral icterus. No injection or drainage. Fundi not examined. ENT: Hearing grossly normal. Nose without bleeding or purulent drainage. Throat without visible erythema, exudates, masses, or lesions. NECK: Trachea midline. Supple, nontender. No palpable thyroid enlargement or nodularity. CARDIOVASCULAR: Regular rate and rhythm. No murmurs RESPIRATORY/CHEST: Symmetric, unlabored respirations. Clear to auscultation. Breath sounds equal bilaterally. No wheezes, rales, or rhonchi. GASTROINTESTINAL: Abdomen soft, non-tender, nondistended. No hepato-splenomegaly , or palpable masses. No guarding. Bowel sounds present. GENITOURINARY: Without palpable bladder distension. Skinner catheter in place, hematuria MUSCULOSKELETAL: Extremities without clubbing, cyanosis, or edema. No joint tenderness or effusion noted. No calf tenderness. No mottling or clubbing. LYMPHATICS: No palpable cervical or supraclavicular adenopathy. NEUROLOGICAL: Awake and alert. Motor and sensory grossly within normal limits. Follows commands. Cognitively sharp. Moves all extremities. PSYCHIATRIC: No obvious anxiety/depression. no apparent hallucinations or other psychotic thought process. Diagnostic Tests Laboratory Laboratory Tests Test 10/19/17 05:50 10/20/17 07:30 White Blood Count 7.9 TH/MM3 (4.0-11.0) 10.5 TH/MM3 (4.0-11.0) Red Blood Count 3.22 MIL/MM3 (4.50-5.90) 3.16 MIL/MM3 (4.50-5.90) Hemoglobin 9.8 GM/DL (13.0-17.0) 9.6 GM/DL (13.0-17.0) Hematocrit 28.7 % (39.0-51.0) 28.5 % (39.0-51.0) Mean Corpuscular Volume 89.0 FL (80.0-100.0) 90.2 FL (80.0-100.0) Mean Corpuscular Hemoglobin 30.6 PG (27.0-34.0) 30.4 PG (27.0-34.0) Mean Corpuscular Hemoglobin Concent 34.3 % (32.0-36.0) 33.7 % (32.0-36.0) Red Cell Distribution Width 16.5 % (11.6-17.2) 16.6 % (11.6-17.2) Platelet Count 171 TH/MM3 (150-450) 206 TH/MM3 (150-450) Mean Platelet Volume 6.9 FL (7.0-11.0) 6.9 FL (7.0-11.0) Neutrophils (%) (Auto) 89.9 % (16.0-70.0) 88.6 % (16.0-70.0) Lymphocytes (%) (Auto) 7.3 % (9.0-44.0) 6.3 % (9.0-44.0) Monocytes (%) (Auto) 2.6 % (0.0-8.0) 4.9 % (0.0-8.0) Eosinophils (%) (Auto) 0.0 % (0.0-4.0) 0.0 % (0.0-4.0) Basophils (%) (Auto) 0.2 % (0.0-2.0) 0.2 % (0.0-2.0) Neutrophils # (Auto) 7.1 TH/MM3 (1.8-7.7) 9.3 TH/MM3 (1.8-7.7) Lymphocytes # (Auto) 0.6 TH/MM3 (1.0-4.8) 0.7 TH/MM3 (1.0-4.8) Monocytes # (Auto) 0.2 TH/MM3 (0-0.9) 0.5 TH/MM3 (0-0.9) Eosinophils # (Auto) 0.0 TH/MM3 (0-0.4) 0.0 TH/MM3 (0-0.4) Basophils # (Auto) 0.0 TH/MM3 (0-0.2) 0.0 TH/MM3 (0-0.2) CBC Comment AUTO DIFF AUTO DIFF Differential Comment AUTO DIFF CONFIRMED AUTO DIFF CONFIRMED Platelet Estimate NORMAL (NORMAL) NORMAL (NORMAL) Platelet Morphology Comment NORMAL (NORMAL) NORMAL (NORMAL) Crenated Cell 1+ (NORMAL) Blood Urea Nitrogen 42 MG/DL (7-18) 52 MG/DL (7-18) Creatinine 2.41 MG/DL (0.60-1.30) 2.72 MG/DL (0.60-1.30) Random Glucose 188 MG/DL (74-106) 166 MG/DL (74-106) Calcium Level 7.8 MG/DL (8.5-10.1) 8.0 MG/DL (8.5-10.1) Sodium Level 138 MEQ/L (136-145) 137 MEQ/L (136-145) Potassium Level 4.0 MEQ/L (3.5-5.1) 4.1 MEQ/L (3.5-5.1) Chloride Level 108 MEQ/L (98-107) 110 MEQ/L (98-107) Carbon Dioxide Level 19.3 MEQ/L (21.0-32.0) 17.0 MEQ/L (21.0-32.0) Anion Gap 11 MEQ/L (5-15) 10 MEQ/L (5-15) Estimat Glomerular Filtration Rate 26 ML/MIN (>89) 22 ML/MIN (>89) Result Diagram: 10/20/1772910/20/17729 Assessment and Plan Disease Oriented Problem List: (1) Acute kidney injury superimposed on CKD (2) Hematuria (3) Hydronephrosis due to obstructive malignant bladder cancer (4) Symptomatic anemia (5) Metastatic urothelial carcinoma (6) Recurrent deep vein thrombosis (DVT) Comment: hx PE. Has IVC, not candidate for anticoagulation give hematuria. Symptom Scale: (1) Pain 0-10 Scale: 6 Pertinent Non-Medical Issues Psychosocial: Spiritual: Legal: Ethical issues impacting care: Important Contacts Prognosis 82 with stage IV urothelial carcinoma. Condition complicated by hematocrit urea , DVTs and PEs, decrease appetite, general weakness. Patient has had recurrent hospitalization. Patient is hospice appropriate of goals of care are consistent with comfort measures only. Code Status: No Code Plan == Pain- mostly form shingles. On valacyclovir. Dilaudid and norco prn. No new med rec for now. == code: DNR. == pt currently has capacity to make medical decisons. == medical decision maker: proxy is . Pt's brought in living will, but it was the wrong one. == goals of care. Review goals of care with pt, with in the room. * reaffirmed DNR/DNI- If I decline "let me go." community DNR at bedside * I have spoke with pt's oncologist Dr. Acevedo. Oncologist said so far, pt has been responding pretty well to chemotherapy. Pt endorse he would like to continue aggressive care short of resucitation. He understand the hematuria and complications from will likely continue to be a factor. He still wants to try. ==Goals of care appears for now pretty sent. Will follow up on advance directive, and as needed. Attestation To help prompt me to consider important information that might be impacting today's encounter and assessment, information from prior notes written by myself or my colleagues may have been "brought forward" into today's note. My signature on this note, however, is an attestation that I personally performed the exam, history, and/or decision-making noted today, and, unless otherwise indicated, the interactions with patient, family, and staff as well as the review of records all occurred today. I also attest that the listed assessment and stated plan reflect my best clinical judgment today based on the combination of historical information, prior notes, and today's exam/ interactions. When time spent is documented, it refers only to time spent today by the signer, or if indicated, combined time spent today by collaborating physician/nurse practitioner. Baldev Hill MD Oct 21, 2017 17:57
[2017-10-21] MEDS: diphenhydrAMINE HCL 25 MG CAP PO PRN (21:01)
[2017-10-21] MEDS: TAMSULOSIN HCL 0.4 MG CAP PO SCH (21:01)
[2017-10-21] MEDS: ACETAMINOPHEN/HYDROcodone 325 MG/5 MG TAB PO PRN (21:01)
[2017-10-22] VITALS (9 sets, daily range): BP systolic 142–151; BP diastolic 78–87; PULSE 66–85; RESP 18–20; TEMP 97.5–98.5; O2SAT 94–96
[2017-10-22] MEDS: DEXAMETHASONE SOD PHOS 4 MG/ML VIAL IV PUSH SCH ×2 (00:25→05:47)
[2017-10-22] MEDS: AMINOCAPROIC ACID 500 MG TAB PO SCH ×5 (00:25→18:30)
[2017-10-22] MEDS ORDERED: SODIUM CHLORID 0.9% 500 ML IV PRN (04:30)
[2017-10-22] MEDS ORDERED: CHLORHEXIDINE GLUCONATE 2 % 1 PACK (2 CLOTHS) TOPICAL PRN (04:30)
[2017-10-22] MEDS ORDERED: METOPROLOL TARTRATE 25 MG TAB PO PRN (04:30)
[2017-10-22] MEDS ORDERED: LACTATED RINGER'S 1000 ML IV PRN (04:30)
[2017-10-22] MEDS ORDERED: POVIDONE IODINE 5% (ANTISEPSIS KIT) 4 APPLICATIONS EACH NARE PRN (04:30)
[2017-10-22] MEDS: valACYclovir HCL 500 MG TAB PO SCH ×3 (05:46→22:45)
--- NOTE | 2017-10-22 09:44 | HHI.PR ---
Subjective Remarks pt and eager to get skinner cath out. Objective Vitals heart reg lung cta abd s/nt ext no edema left post leg shingles rash nephrostomy tubes.rightbloodier and some blood in skinner Vital Signs Date Time Temp Pulse Resp B/P (MAP) Pulse Ox O2 Delivery O2 Flow Rate FiO2 10/22/17 08:04 98.1 78 19 150/87 (108) 94 10/22/17 04:00 97.5 74 20 151/81 (104) 95 10/22/17 03:46 67 10/22/17 03:46 71 10/22/17 00:00 97.6 79 20 142/81 (101) 95 10/21/17 23:47 83 10/21/17 20:00 98.2 91 16 135/81 (99) 96 10/21/17 19:46 94 10/21/17 19:00 Room Air 10/21/17 16:16 97 10/21/17 14:04 98.3 98 18 143/78 (99) 95 10/21/17 12:01 97.7 86 18 159/83 (108) 94 Result Diagram: 10/20/17 0730 10/20/17 0730 Imaging Last Impressions Chest X-Ray 10/16/17 0911 Signed Impressions: Service Date/Time: October 09:18 - CONCLUSION: 1. Cardiomegaly. No acute pulmonary disease. 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 He follows with Dr. Maldonado. Pt had a cystoscopy with reported cauterization about [address] Maldonado. Patient was recently admitted to [facility] [place] on 10/12/17 for blood transfusion Patient then had Skinner catheter removed and bladder irrigation on 10/15/16. Patient returned to ER 10/16/17 with abdominal pain secondary to urinary obstruction. Pts labs at admission noted Hgb 6.1/Hct 18.4. Pt is being admitted for for transfusion and urology evaluation. bilateral hydroureteronephrosis related to bladder cancer status post bilateral stent placement -s/p bilateral nephrostomy tubes 10/20 -spoke to Urology ...ok to pull skinner when nephrostomy tubes drainage light pink -going today with Urology to pull ureter stents...d/c skinner if ok with Urology -hopefully d/c to snf tomorrow with ok with urology -cbi stopped cont steroids convert to po taper/amicar (2) Abdominal pain ICD Codes: R10.9 - Unspecified abdominal pain Status: Acute Plan: see above (3) Symptomatic anemia ICD Codes: D64.9 - Anemia, unspecified Status: Acute Plan: On admission patient's hgb was 6.1 - see above (4) Metastatic urothelial carcinoma ICD Codes: C79.10 - Secondary malignant neoplasm of unspecified urinary organs Status: Chronic Plan: - see above (5) Acute kidney injury superimposed on CKD ICD Codes: N17.9 - Acute kidney failure, unspecified; N18.9 - Chronic kidney disease, unspecified Status: Acute Plan: Elevated renal function likely secondary retention On admission BUN 55 creatinine 3.37 estimated GFR 18 Skinner catheter placed and draining IV fluids monitor renal function (6) Recurrent deep vein thrombosis (DVT) ICD Codes: I82.409 - Acute embolism and thrombosis of unspecified deep veins of unspecified lower extremity Plan: - Pt had IVC filter placed in 07/2017. He could not tolerate anticoagulants due to hematuria. (7) HTN (hypertension), benign ICD Codes: I10 - Essential (primary) hypertension Status: Chronic Plan: - Home meds continued - Clonidine PRN (8) Hypothyroidism ICD Codes: E03.9 - Hypothyroidism, unspecified Status: Chronic Plan: - Home meds continued (9) Shingles ICD Codes: B02.9 - Zoster without complications Status: Acute Plan: Valtrex norco prn Buck Rey MD Oct 22, 2017 09:44
[2017-10-22] MEDS: LEVOTHYROXINE SODIUM 125 MCG TAB PO SCH (09:56)
[2017-10-22] MEDS: SODIUM CHLORIDE 0.9% FLUSH 10 ML FLUSH IV FLUSH SCH ×2 (09:56→20:11)
[2017-10-22] MEDS: FINASTERIDE 5 MG TAB PO SCH (09:56)
[2017-10-22] MEDS: URIBEL PO SCH ×2 (09:59→20:10)
[2017-10-22] MEDS ORDERED: ONDANSETRON HCL 4 MG/2 ML VIAL IV ONE (12:00)
[2017-10-22] MEDS ORDERED: PROPOFOL 200 MG/20 ML AMP IV ONE (12:00)
[2017-10-22] MEDS ORDERED: LIDOCAINE HCL 1% PF 5 ML SYRINGE OTHER ONE (12:00)
[2017-10-22] MEDS ORDERED: DEXAMETHASONE SOD PHOS 4 MG/ML VIAL IV ONE (12:00)
[2017-10-22] MEDS ORDERED: IOHEXOL 300 INJ 100 ML IV ONE (15:35)
--- NOTE | 2017-10-22 16:57 | PD.OP ---
Operative Report Date of Surgery: Oct 22, 2017 Preoperative Diagnosis: (1) Bladder cancer Postoperative Diagnosis: (1) Bladder cancer Procedure: Cystoscopy, clot evacuation, fulguration of large bladder tumor and removal of bilateral ureteral stents Anesthesia: General Surgeon: Jack Thorne Public Defender(s): None Operation and Findings: Indication for procedure: Case of a pleasant 82-year-old gentleman with advanced bladder cancer status post recent placement of bilateral nephrostomy tubes and presents now for removal of his bilateral ureteral stents. Operative procedure in detail: Patient was brought to the operating room suite and placed supine on the cystoscopy table. He was then placed under general anesthesia. He was then repositioned in the dorsolithotomy position and prepped and draped in normal sterile fashion. After appropriate timeout was undertaken proceeded with cystoscopic evaluation utilizing the rigid cystoscope with the 22 Slovak sheath and the 30 lens. The urethra was patent without stricture formation, the prostatic urethra was nonobstructing and further passive cystoscope within the urinary bladder revealed a bladder full of clot. I then utilized the Elik evacuator to remove most of the clots. The patient was noted to have diffuse bladder cancer with bleeding at various sites. The distal portion of the previously placed bilateral ureteral stents could easily be seen. I exchanged the cystoscope for the resectoscope with a 24 Slovak loop and after irrigating the bladder once again with the elik device, proceeded with fulguration of the various bleeding sites. Once this was a [place], I utilized the 24 Slovak loop to rest the bilateral ureteral stents which were easily removed. Once the stents were removed they were inspected to ascertain that no stent fragments were left behind. A 18 Slovak 5 cc Pena catheter was placed and connected to gravity drainage. The patient tolerated the procedures without complications and was transferred to the PACU in satisfactory condition. Jack Thorne MD Oct 22, 2017 16:57
[2017-10-22] MEDS ORDERED: *morphine SULFATE 4 MG/ML PERIprocedure ONLY ONE ×2 (17:12→17:22)
[2017-10-22] MEDS ORDERED: DO NOT ADM ANY ANTICOAGULANT DRUGS PRN (17:30)
[2017-10-22] MEDS: predniSONE 20 MG TAB PO SCH (20:09)
[2017-10-22] MEDS: TAMSULOSIN HCL 0.4 MG CAP PO SCH (20:09)
[2017-10-23] VITALS (10 sets, daily range): BP systolic 130–150; BP diastolic 73–82; PULSE 63–106; RESP 16–20; TEMP 97.3–98.9; O2SAT 95–97
[2017-10-23] MEDS: diphenhydrAMINE HCL 25 MG CAP PO PRN ×2 (00:41→23:25)
[2017-10-23] MEDS: AMINOCAPROIC ACID 500 MG TAB PO SCH ×5 (00:41→23:24)
[2017-10-23] MEDS: valACYclovir HCL 500 MG TAB PO SCH ×2 (06:08→17:00)
[2017-10-23] MEDS: predniSONE 20 MG TAB PO SCH ×2 (08:33→20:01)
[2017-10-23] MEDS: FINASTERIDE 5 MG TAB PO SCH (08:34)
[2017-10-23] MEDS: URIBEL PO SCH ×2 (08:34→20:04)
[2017-10-23] MEDS: LEVOTHYROXINE SODIUM 125 MCG TAB PO SCH (08:34)
[2017-10-23] MEDS: SODIUM CHLORIDE 0.9% FLUSH 10 ML FLUSH IV FLUSH SCH ×2 (08:34→20:04)
--- NOTE | 2017-10-23 09:14 | HHI.PR ---
Subjective Remarks feels good. no new complaints Objective Vitals heart reg lung cta abd s/nt ext no edema right nephrostomy tube green left tea color skinner. no new blood Vital Signs Date Time Temp Pulse Resp B/P (MAP) Pulse Ox O2 Delivery O2 Flow Rate FiO2 10/23/17 05:01 98.4 88 18 136/78 (97) 96 10/23/17 03:45 69 10/23/17 00:48 98.4 86 18 132/73 (92) 96 10/22/17 23:44 83 10/22/17 21:23 97.6 68 18 142/78 (99) 96 10/22/17 19:43 85 10/22/17 19:00 Room Air 10/22/17 18:00 98.1 76 19 161/79 (106) 99 Nasal Cannula 2 10/22/17 17:45 76 20 154/75 (101) 97 10/22/17 17:30 75 17 161/78 (105) 97 10/22/17 17:15 83 20 168/76 (106) 96 Nasal Cannula 2 10/22/17 17:08 98.1 80 20 182/81 (114) 96 Nasal Cannula 2 10/22/17 12:14 98.5 79 18 144/80 (101) 95 Result Diagram: 10/20/17 0730 10/20/17 0730 Imaging Last Impressions Chest X-Ray 10/16/17 0911 Signed Impressions: Service Date/Time: October 09:18 - CONCLUSION: 1. Cardiomegaly. No acute pulmonary disease. 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 He follows with Dr. Maldonado. Pt had a cystoscopy with reported cauterization about [address] Maldonado. Patient was recently [place] [facility] [place]12[place] for blood transfusion Patient then had Skinner catheter removed and bladder irrigation on 10/15/16. Patient returned to ER 10/16/17 with abdominal pain secondary to urinary obstruction. Pts labs at admission noted Hgb 6.1/Hct 18.4. Pt is being admitted for for transfusion and urology evaluation. bilateral hydroureteronephrosis related to bladder cancer status post bilateral stent placement -off cbi -s/p bilateral nephrostomy tubes 10/20 -10/22 ureteral stents removed by Urology -today going for internalization per IR -pred taper.amicar -bmp pending -d/c to snf when ok with urology/IR...hopefully skinner removed today (2) Abdominal pain ICD Codes: R10.9 - Unspecified abdominal pain Status: Acute Plan: see above (3) Symptomatic anemia ICD Codes: D64.9 - Anemia, unspecified Status: Acute Plan: On admission patient's hgb was 6.1 - see above (4) Metastatic urothelial carcinoma ICD Codes: C79.10 - Secondary malignant neoplasm of unspecified urinary organs Status: Chronic Plan: - see above (5) Acute kidney injury superimposed on CKD ICD Codes: N17.9 - Acute kidney failure, unspecified; N18.9 - Chronic kidney disease, unspecified Status: Acute Plan: Elevated renal function likely secondary retention On admission BUN 55 creatinine 3.37 estimated GFR 18 Skinner catheter placed and draining IV fluids monitor renal function (6) Recurrent deep vein thrombosis (DVT) ICD Codes: I82.409 - Acute embolism and thrombosis of unspecified deep veins of unspecified lower extremity Plan: - Pt had IVC filter placed in 07/2017. He could not tolerate anticoagulants due to hematuria. (7) HTN (hypertension), benign ICD Codes: I10 - Essential (primary) hypertension Status: Chronic Plan: - Home meds continued - Clonidine PRN (8) Hypothyroidism ICD Codes: E03.9 - Hypothyroidism, unspecified Status: Chronic Plan: - Home meds continued (9) Shingles ICD Codes: B02.9 - Zoster without complications Status: Acute Plan: Valtrex norco prn Buck Rey MD Oct 23, 2017 09:14
--- NOTE | 2017-10-23 10:53 | HHI.HCPN ---
Met with Mr. Ludwig and his at bedside. Mr. Ludwig is alert, oriented, and able to make his needs known. He is pleasant throughout conversation, currently awaiting procedure in IR. He and his deny any questions or concerns at this time. Mr. Ludwig is anxiously awaiting discharge. Gently discussed Community DNR. Confirms desire to be a NO CODE and complete paperwork. Assisted with completion of Community DNR, obtained living will from patient, copies faxed to HIM to be scanned into EMR. Palliative care will continue to follow throughout hospitalization. Sakina Bonilla, HEATING PLANT SUPERINTENDENT Oct 23, 2017 10:53
[2017-10-23 11:46] LABS: BICARBONATE 18.5 MEQ/L (21.0-32.0); CALCIUM 8.2 MG/DL (8.5-10.1); CREATININE 2.08 MG/DL (0.60-1.30)
[2017-10-23] MEDS ORDERED: MIDAZOLAM HCL 2 MG/2 ML VIAL ONE ×2 (12:08)
[2017-10-23] MEDS ORDERED: LEVOFLOXACIN 500 MG PREMIX INJ 100 ML IV ONE (12:38)
[2017-10-23] MEDS ORDERED: IOHEXOL 350 MG/ML 50 ML BTL (for RAD DIAG) OTHER ONE (13:18)
--- NOTE | 2017-10-23 17:04 | RADRPT ---
EXAM DATE/TIME: 10/23/2017 13:38 [place] COMPARISON: URETERAL STENT PLACEMENT,RIGHT, September 24, 2016, 9:43. INDICATIONS : Patient with history of bladder mass in need of exchange of bilateral nephrostomy tubes for nephroure teral catheters. MEDICAL HISTORY : Chronic kidney disease Metastatic urothelial carcinoma of the bladder Hydronephrosis DVT HTN Diabetes Hypothyroidism Chronic anemia Cataracts SURGICAL HISTORY : IVC filter Cystoscopy with ureteral stent placement Bilateral cataract surgery Hernia repair Varicose vein ligation ENCOUNTER: Subsequent ACUITY: 4 - 6 months PAIN SCORE: 7/10 pelvis FLUORO TIME: 8.9 minutes IMAGE SERIES: 5 SEDATION TIME: 30 minutes CONTRAST: 45 cc Omnipaque (iohexol) 350 MEDICATION(S): 1.) 2.5 mg midazolam (Versed) IV 2.) 125 mcg fentanyl (Sublimaze) IV DEVICE(S): 1.) 8 Bulgarian x 26cm Expel nephroureteral stent PROCEDURE : 1. Exchange of right percutaneous nephrostomy tube for a percutaneous nephroureteral. 2. Antegrade percutaneous pyelogram. 3. Percutaneous nephroureteral stent placement. 4. Conscious sedation with continuous EKG and oximetry monitoring. The risks, benefits and alternatives to the procedure were explained and verbal and written consent w as obtained. The site was prepped in sterile fashion. Full sterile technique was used, including ca p, mask, sterile gloves and gown and a large sterile sheet. Hand hygiene and 2% chlorhexidine and/or betadine/alcohol prep was utilized per protocol for cutaneous antisepsis. Sterile gel and sterile p robe cover were utilized for ultrasound guidance. The skin and subcutaneous tissues were infiltrated with local anesthetic solution. Existing nephrostomy tube was injected with positive contrast showing appropriate position. The hub w as excised and the catheter accessed with a straight glide wire. Catheter was removed over the wire. Hockey-stick catheter and the glide wire were then advanced down into the distal ureter, through the UVJ and into the urinary bladder. Brief holdup at the UVJ presumably in the region of the patient's k nown bladder tumor. Conscious sedation was performed with the prescribed dosages and duration as above in the presence of an independent trained radiology nurse to assist in the monitoring of the patient. EKG and oximetry remained stable throughout the procedure. The patient tolerated the procedure well and there were n o complications. The patient was sent to post anesthesia recovery in stable condition. CONCLUSION: Uncomplicated nephroureteral stent placement as above. This was exchanged for an existing percutaneous nephrostomy tube. Juan Henderson MD on October 23, 2017 at 16:49 Board Certified Radiologist. This report was verified electronically.
--- NOTE | 2017-10-23 17:18 | RADRPT ---
EXAM DATE/TIME: 10/23/2017 13:38 [facility] COMPARISON: No previous studies available for comparison. INDICATIONS : Patient with history of bladder mass in need of exchange of bilateral nephrostomy tubes for nephroure teral catheters. MEDICAL HISTORY : Chronic kidney disease Metastatic urothelial carcinoma of the bladder Hydronephrosis DVT HTN Diabetes Hypothyroidism Chronic anemia Cataracts SURGICAL HISTORY : IVC filter Cystoscopy with ureteral stent placement Bilateral cataract surgery Hernia repair Varicose vein ligation ENCOUNTER: Initial ACUITY: 4 - 6 months PAIN SCORE: 7/10 pelvis FLUORO TIME: 8.9 minutes IMAGE SERIES: 5 SEDATION TIME: 30 minutes CONTRAST: 45 cc Omnipaque (iohexol) 350 MEDICATION(S): 1.) 3 mg midazolam (Versed) IV 2.) 150 mcg fentanyl (Sublimaze) IV DEVICE(S): 1.) 8 Maltese 8f x 24cm Expel nephroureteral stent PROCEDURE : 1. fluoroscopic guided exchange of a percutaneous nephrostomy tube for a percutaneous nephroureteral catheter. 2. Antegrade percutaneous pyelogram. 3. Percutaneous nephroureteral stent placement. 4. Conscious sedation with continuous EKG and oximetry monitoring. The risks, benefits and alternatives to the procedure were explained and verbal and written consent w as obtained. The site was prepped in sterile fashion. Full sterile technique was used, including ca p, mask, sterile gloves and gown and a large sterile sheet. Hand hygiene and 2% chlorhexidine and/or betadine/alcohol prep was utilized per protocol for cutaneous antisepsis. Sterile gel and sterile p robe cover were utilized for ultrasound guidance. The skin and subcutaneous tissues were infiltrated with local anesthetic solution. Existing nephrostomy tube was injected with positive contrast. Filling defect presumably represent th rombus the patient has a history of a bleeding bladder cancer. These filling defects were nonobstruct jesi, however. The hub of the nephrostomy tube was excised. Catheter was accessed with a 035 straight Glidewire. Catheter was removed. Wire and catheter were manipulated down the ureter and into the urin rabia bladder. Wire was used to determine the appropriate catheter length and a 24 cm percutaneous neph roureteral tube advanced over the wire and into the bladder. The proximal and distal cope loops were formed. Conscious sedation was performed with the prescribed dosages and duration as above in the presence of an independent trained radiology nurse to assist in the monitoring of the patient. EKG and oximetry remained stable throughout the procedure. The patient tolerated the procedure well and there were n o complications. The patient was sent to post anesthesia recovery in stable condition. CONCLUSION: 1. Successful exchange of nephrostomy tube for nephroureteral tube as above. 2. Patient is scheduled to return to radiology specials in 3 months for tube exchange. Patient and hi s were also provided the phone number for [facility] and were instructed to call if they experienced a ny difficulties with the catheters in the interim. Juan Henderson MD on October 23, 2017 at 17:01 Board Certified Radiologist. This report was verified electronically.
[2017-10-23] MEDS: TAMSULOSIN HCL 0.4 MG CAP PO SCH (20:02)
[2017-10-24] VITALS (12 sets, daily range): BP systolic 129–154; BP diastolic 72–84; PULSE 71–104; RESP 16–18; TEMP 97.2–98.5; O2SAT 95–97
[2017-10-24] MEDS: AMINOCAPROIC ACID 500 MG TAB PO SCH ×4 (05:45→23:26)
[2017-10-24] MEDS: SODIUM CHLORIDE 0.9% FLUSH 10 ML FLUSH IV FLUSH SCH ×2 (09:11→20:16)
[2017-10-24] MEDS: URIBEL PO SCH ×2 (09:12→20:16)
[2017-10-24] MEDS: FINASTERIDE 5 MG TAB PO SCH (09:12)
[2017-10-24] MEDS: LEVOTHYROXINE SODIUM 125 MCG TAB PO SCH (09:13)
[2017-10-24] MEDS: predniSONE 20 MG TAB PO SCH ×2 (09:13→20:17)
[2017-10-24] MEDS: ACETAMINOPHEN/HYDROcodone 325 MG/5 MG TAB PO PRN (09:41)
[2017-10-24] MEDS ORDERED: TEMA15CA PO (09:43)
[2017-10-24] MEDS ORDERED: HYDR-3516 PO (09:43)
[2017-10-24] MEDS ORDERED: PRED10 PO (09:45)
--- NOTE | 2017-10-24 09:45 | HHI.DCPOC ---
Discharge Care Plan Diagnosis: (1) Bladder cancer (2) Acute kidney injury superimposed on CKD (3) Bladder outlet obstruction (4) Shingles (5) CKD (chronic kidney disease) stage 4, GFR 15-29 ml/min (6) Hypothyroidism Goals to Promote Your Health * To prevent worsening of your condition and complications * To maintain your health at the optimal level Directions to Meet Your Goals Take your medications as prescribed Follow your dietary instruction Follow activity as directed Keep your appointments as scheduled Take your immunizations and boosters as scheduled If your symptoms worsen call your PCP, if no PCP go to Urgent Care Center or Emergency Room Smoking is Dangerous to Your Health. Avoid second hand smoke Call the 24-hour hour crisis hotline for domestic abuse at Buck Rey MD Oct 24, 2017 09:45
--- NOTE | 2017-10-24 09:53 | HHI.DS ---
Discharge Summary Admission Date Oct 16, 2017 at 09:22 Discharge Date: Oct 24, 2017 Admitting Diagnosis severe anemia/hematuria (1) Bladder outlet obstruction Diagnosis: Principal ICD Codes: N32.0 - Bladder-neck obstruction Status: Acute (2) Symptomatic anemia Diagnosis: Principal ICD Codes: D64.9 - Anemia, unspecified Status: Acute (3) Metastatic urothelial carcinoma Diagnosis: Principal ICD Codes: C79.10 - Secondary malignant neoplasm of unspecified urinary organs Status: Chronic (4) Acute kidney injury superimposed on CKD Diagnosis: Principal ICD Codes: N17.9 - Acute kidney failure, unspecified; N18.9 - Chronic kidney disease, unspecified Status: Acute (5) Recurrent deep vein thrombosis (DVT) Diagnosis: Secondary ICD Codes: I82.409 - Acute embolism and thrombosis of unspecified deep veins of unspecified lower extremity (6) HTN (hypertension), benign Diagnosis: Secondary ICD Codes: I10 - Essential (primary) hypertension Status: Chronic (7) Hypothyroidism Diagnosis: Secondary ICD Codes: E03.9 - Hypothyroidism, unspecified Status: Chronic (8) Shingles Diagnosis: Secondary ICD Codes: B02.9 - Zoster without complications Status: Acute Brief History Mr. 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 He follows with Dr. Maldonado. Pt had a cystoscopy with reported cauterization about [address] Maldonado. Patient was recently admitted to [facility] [place] on 10/12/17 for hematuria discharged with skinner. Patient then had Skinner catheter removed and bladder irrigation on . He denies any fevers or chills, back pain, nausea/vomiting, chest pain, SOB , palpitations, or dizziness. Pts labs at admission noted Hgb 6.1/Hct 18.4. Pt is being admitted for for transfusion and urology evaluation. 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 He follows with Dr. Maldonado. Pt had a cystoscopy with reported cauterization about [address] Maldonado. Patient was recently admitted to [facility] [place] on 10/12/17 for blood transfusion Patient then had Skinner catheter removed and bladder irrigation on 10/15/16. Patient returned to ER 10/16/17 with abdominal pain secondary to urinary obstruction. Pts labs at admission noted Hgb 6.1/Hct 18.4. Pt is being admitted for for transfusion and urology evaluation. bilateral hydroureteronephrosis related to bladder cancer status post bilateral stent placement -off cbi -s/p bilateral nephrostomy tubes 10/20 -10/22 ureteral stents removed by Urology -today going for internalization per IR -pred taper.amicar -d/c skinner -Dr Henderson placed internal stents yesterday..This will need changed in 3 months and every three months thereafter by IR...I wrote the order and discussed with radiology and dr Henderson. d/c to snf today. (2) Abdominal pain ICD Codes: R10.9 - Unspecified abdominal pain Status: Acute Plan: see above (3) Symptomatic anemia ICD Codes: D64.9 - Anemia, unspecified Status: Acute Plan: On admission patient's hgb was 6.1 - see above (4) Metastatic urothelial carcinoma ICD Codes: C79.10 - Secondary malignant neoplasm of unspecified urinary organs Status: Chronic Plan: - see above (5) Acute kidney injury superimposed on CKD ICD Codes: N17.9 - Acute kidney failure, unspecified; N18.9 - Chronic kidney disease, unspecified Status: Acute Plan: Elevated renal function likely secondary retention On admission BUN 55 creatinine 3.37 estimated GFR 18 Skinner catheter placed and draining IV fluids monitor renal function (6) Recurrent deep vein thrombosis (DVT) ICD Codes: I82.409 - Acute embolism and thrombosis of unspecified deep veins of unspecified lower extremity Plan: - Pt had IVC filter placed in 07/2017. He could not tolerate anticoagulants due to hematuria. (7) HTN (hypertension), benign ICD Codes: I10 - Essential (primary) hypertension Status: Chronic Plan: - Home meds continued - Clonidine PRN (8) Hypothyroidism ICD Codes: E03.9 - Hypothyroidism, unspecified Status: Chronic Plan: - Home meds continued (9) Shingles ICD Codes: B02.9 - Zoster without complications Status: Acute Plan: Valtrex norco prn Buck Rey MD Oct 23, 2017 09:14 Pt Condition on Discharge: Stable Discharge Disposition: Discharge to SNF Discharge Instructions DIET: Follow Instructions for: As Tolerated, No Restrictions Activities you can perform: Regular-No Restrictions Follow up Referrals: Appointment for Follow Up - 01/20/18 with [facility] PCP Follow-up - [address] harper 2 weeks. New Medications: Prednisone (Prednisone) 10 Mg Tab 10 MG PO DIRECTED for cystitis for 5 Days, TAB 0 Refills 20mg daily x 2 days, 10mg daily x 3 days Hydrocodone/Acetaminophen (Hydrocodone-Acetamin 5-325 mg) 5 Mg-325 Mg Tablet 1 TAB PO Q4H PRN for pain, #30 TAB Continued Medications: Amlodipine (Amlodipine) 10 Mg Tab 10 MG PO DAILY for Blood Pressure Management, #30 TAB 0 Refills Ascorbic Acid (Vitamin C) 1,000 Mg Tablet.er Cyanocobalamin (B12) 1,000 Mcg Tab DAILY Finasteride (Proscar) 5 Mg Tab 5 MG PO DAILY for Manage Prostate Problems, #30 TAB 0 Refills Do not crush. Levothyroxine (Levothyroxine) 125 Mcg Tab 125 MCG PO DAILY for Thyroid, #30 TAB 0 Refills Magnesium (Magnesium) 200 Mg Tab 250 MG PO DAILY, TAB Hewbqrbjbda-Uikgw-Garezwwkc Blue (Uribel) 1 Cap 2 CAP PO DAILY Tamsulosin (Tamsulosin) 0.4 Mg Cap 0.4 MG PO HS for Manage Prostate Problems, #30 CAP 0 Refills Temazepam (Temazepam) 15 Mg Cap 15 MG PO HS PRN for INSOMNIA, #15 CAP 0 Refills (This prescription has been renewed) Zinc Gluconate (Zinc) 50 Mg Tab 1 TAB PO DAILY Buck Rey MD Oct 24, 2017 09:53
[2017-10-24] MEDS: HYDROmorphone HCL PF 2 MG/ML VIAL IV PUSH PRN (12:10)
[2017-10-24] MEDS: MAGNESIUM HYDROXIDE SUSP 30 ML CUP PO PRN (12:11)
[2017-10-24] MEDS ORDERED: SIMETHICONE 125 MG CHEWABLE TAB PO ONE (12:30)
--- NOTE | 2017-10-24 15:20 | HHI.PR ---
Subjective Patient symptoms today Reports bilateral nephrostomy tubes draining well Status post exchange for bilateral nephro ureteral tubes yesterday by interventional radiology Pena catheter removed this morning Reports abdominal distention that developed just recently Denies having a normal bowel movement over the past several days Objective Vital Signs Vital Signs Date Time Temp Pulse Resp B/P (MAP) Pulse Ox O2 Delivery O2 Flow Rate FiO2 10/24/17 12:00 97.2 78 18 152/72 (98) 97 10/24/17 11:34 79 10/24/17 08:03 75 10/24/17 08:00 98.5 77 18 154/83 (106) 96 10/24/17 08:00 Room Air 2.00 10/24/17 04:01 71 10/24/17 04:00 98.0 78 18 144/84 (104) 95 10/24/17 00:07 83 10/24/17 00:00 98.1 82 16 129/74 (92) 95 10/23/17 20:24 106 10/23/17 20:00 98.1 90 18 148/77 (100) 96 10/23/17 19:45 Room Air 10/23/17 16:00 97.8 87 20 130/77 (94) 97 Intake & Output 10/24/17 10/24/17 07:00 19:00 Output Total 950 ml 1 ml Balance -950 ml -1 ml Stool Total 1 ml Drainage Total 950 ml Result Diagram: 10/20/17 0730 10/23/17 1002 Objective Remarks Abdomen soft, moderately distended, nontender Bilateral nephrostomy tubes in place and draining well without clot formation. Bladder not distended Medications and IVs Current Medications Medications (Trade) Dose Ordered Sig/Trisha Route Start Time Stop Time Status Last Admin (NS Flush) 2 ml UNSCH PRN IV FLUSH 10/16/17 09:15 (NS Flush) 2 ml BID IV FLUSH 10/16/17 21:00 10/24/17 09:11 (Tylenol) 650 mg Q4H PRN PO 10/16/17 09:15 (Zofran Inj) 4 mg Q6H PRN IVP 10/16/17 09:15 (Narcan Inj) 0.4 mg UNSCH PRN IV PUSH 10/16/17 09:15 (Milk Of Magnesia Liq) 30 ml Q12H PRN PO 10/16/17 09:15 10/24/17 12:11 (Norvasc) 10 mg DAILY PO 10/17/17 09:00 10/24/17 09:13 (Proscar) 5 mg DAILY PO 10/17/17 09:00 10/24/17 09:12 (Synthroid) 125 mcg DAILY PO 10/17/17 09:00 10/24/17 09:13 (Flomax) 0.4 mg HS PO 10/16/17 21:00 10/23/17 20:02 (Amelia 5-325 Mg) 1 tab Q4H PRN PO 10/16/17 14:00 10/24/17 09:41 (Dilaudid Pf Inj) 0.5 mg Q4H PRN IV PUSH 10/16/17 14:00 10/24/17 12:10 (Amicar) 500 mg Q6HR PO 10/17/17 19:00 10/24/17 13:02 Patient Own Medication PT OWN MED: [place]am... BID PO 10/18/17 21:00 10/24/17 09:12 (Benadryl) 25 mg Q4H PRN PO 10/21/17 07:45 10/23/17 23:25 (Deltasone) 20 mg BID PO 10/22/17 21:00 10/24/17 09:13 Assessment and Plan Assessment and Plan Urologic impression: #1 gross hematuria related to patient's known history of metastatic bladder cancer #2 bilateral hydroureteronephrosis related to bladder cancer status post bilateral nephroureteral tube placement #3 Neurontin abdominal distention possibly related to constipation Recommendations: #1 continue with bilateral nephroureteral tubes to gravity drainage #2 the bilateral nephroureteral tubes need to be changed out every 3 months by interventional radiology #3 will order a Fleet's enema to facilitate bowel movement #4 patient to keep his follow up appointments with Dr. Maldonado, his established urologist after hospital discharge Jack Thorne MD Oct 24, 2017 15:20
[2017-10-24] MEDS ORDERED: SOD PHOSPHATE/SOD BIPHOSPHATE (ADULT) ENEMA 133ML RECTAL ONE (15:30)
[2017-10-24] MEDS ORDERED: MAGNESIUM CITRATE SOLN 300 ML BTL PO ONE (15:30)
--- NOTE | 2017-10-24 16:28 | RADRPT ---
EXAM DATE/TIME: 10/24/2017 14:27 [facility] COMPARISON: No previous studies available for comparison. INDICATIONS : Abdominal pain overall. MEDICAL HISTORY : Chronic kidney disease, Metastatic urothelial carcinoma of the bladder, Hydronephrosis, DVT, HTN, Monserrat betes, Hypothyroidism, Chronic anemia, Cataracts. SURGICAL HISTORY : IVC filter, Colonoscopy with ureteral stent placement, Bilateral cataract surgery, Hernia reppair, Va ricose vein ligation. ENCOUNTER: Initial ACUITY: 2 days PAIN SCORE: 8/10 LOCATION: abdomen FINDINGS: Bilateral nephroureteral stents are present in what appears to be satisfactory position. An inferior vena caval filter is present. Intestinal gas pattern is nonspecific and benign. There are no suspicio us calcific densities. Pelvic phleboliths and vascular calcifications noted. Moderate degenerative ch anges seen in the spine and hips. CONCLUSION: Ureteral stents in satisfactory position. Nonspecific benign abdomen appearance. Dylan Yanes MD on October 24, 2017 at 16:24 Board Certified Radiologist. This report was verified electronically.
[2017-10-24] MEDS: TAMSULOSIN HCL 0.4 MG CAP PO SCH (20:17)
[2017-10-24] MEDS: diphenhydrAMINE HCL 25 MG CAP PO PRN (23:26)
[2017-10-25] VITALS (10 sets, daily range): BP systolic 133–153; BP diastolic 69–83; PULSE 65–81; RESP 16–20; TEMP 97.5–98.5; O2SAT 94–96
[2017-10-25] MEDS: AMINOCAPROIC ACID 500 MG TAB PO SCH ×4 (05:13→22:42)
[2017-10-25] MEDS: FINASTERIDE 5 MG TAB PO SCH (09:53)
[2017-10-25] MEDS: LEVOTHYROXINE SODIUM 125 MCG TAB PO SCH (09:53)
[2017-10-25] MEDS: predniSONE 20 MG TAB PO SCH ×2 (09:53→22:42)
[2017-10-25] MEDS: URIBEL PO SCH ×2 (09:54→22:43)
[2017-10-25] MEDS: SODIUM CHLORIDE 0.9% FLUSH 10 ML FLUSH IV FLUSH SCH ×2 (09:55→21:00)
[2017-10-25] MEDS: SIMETHICONE 125 MG CHEWABLE TAB PO SCH ×2 (11:21→18:41)
--- NOTE | 2017-10-25 11:35 | RADRPT ---
EXAM DATE/TIME: 10/25/2017 10:37 [facility] COMPARISON: ABDOMEN KUB ONLY, October 24, 2017, 14:27. INDICATIONS : Abdominal pain, distension MEDICAL HISTORY : Chronic kidney disease, Metastatic urothelial carcinoma of the bladder, Hydronephrosis, DVT, HTN, Monserrat betes, Hypothyroidism, Chronic anemia SURGICAL HISTORY : IVC filter, Colonoscopy with ureteral stent placement, Bilateral cataract, surgery, Hernia reppair, V aricose vein ligation ENCOUNTER: Subsequent ACUITY: 3 days PAIN SCORE: 8/10 LOCATION: Bilateral abdomen FINDINGS: 2 AP supine views of the abdomen. Scattered gas and stool in the colon. Mildly dilated air filled loo ps of mid small bowel measuring up to 4.3 cm in diameter. Bilateral ureteral stents remain in place. IVC filter noted. Prominent degenerative findings of the lumbar spine. CONCLUSION: Bilateral ureteral stents in place. Mildly dilated air-filled small bowel indicating possible ileus. Juan Manuel Jeter MD on October 25, 2017 at 11:31 Board Certified Radiologist. This report was verified electronically.
--- NOTE | 2017-10-25 17:31 | HHI.PR ---
Subjective Remarks Pt c/o abdominal discomfort and distension. Pt had BM today around 2PM. Objective Vitals Vital Signs Date Time Temp Pulse Resp B/P (MAP) Pulse Ox O2 Delivery O2 Flow Rate FiO2 10/25/17 16:00 98.5 79 20 133/69 (90) 96 10/25/17 12:00 97.7 68 20 144/73 (96) 96 10/25/17 12:00 65 10/25/17 10:09 Room Air 10/25/17 08:00 65 10/25/17 08:00 98.3 66 20 141/78 (99) 94 10/25/17 04:02 69 10/25/17 04:00 97.8 72 16 153/81 (105) 95 10/25/17 00:19 78 10/25/17 00:00 97.5 78 16 148/83 (104) 95 10/24/17 20:02 83 10/24/17 20:00 98.5 80 16 138/77 (97) 96 10/24/17 19:45 Room Air 10/25/17 10/25/17 10/26/17 14:59 22:59 06:59 Output Total 200 ml Balance -200 ml Drainage Total 200 ml # Bowel Movements 1 Result Diagram: 10/23/17 1002 Imaging Last Impressions Abdomen X-Ray 10/25/17 0000 Signed Impressions: Service Date/Time: Wednesday, October 25, 2017 10:37 - CONCLUSION: Bilateral ureteral stents in place. Mildly dilated air-filled small bowel indicating possible ileus. Juan Manuel Jeter MD Ureter Stent X-Ray 10/23/17 0000 Signed Impressions: Service Date/Time: October 13:38 - CONCLUSION: Uncomplicated nephroureteral stent placement as above. This was exchanged for an existing percutaneous nephrostomy tube. Juan Henderson MD Nephrostomy 10/20/17 0000 Signed Impressions: Service Date/Time: Friday, October 20, 2017 11:56 - CONCLUSION: Uncomplicated nephrostomy tube placement as above. Juan Henderson MD Chest X-Ray 10/16/17 0911 Signed Impressions: Service Date/Time: October 09:18 - CONCLUSION: 1. Cardiomegaly. No acute pulmonary disease. Ron Lopez MD Objective Remarks GENERAL: This is a well-nourished, well-developed patient, in no apparent distress. CARDIOVASCULAR: Regular rate and rhythm without murmurs, gallops, or rubs. RESPIRATORY: Clear to auscultation. Breath sounds equal bilaterally. No wheezes , rales, or rhonchi. GASTROINTESTINAL: abdomen distended, tympanic on percussion, +BS x 4, no g/r/r MUSCULOSKELETAL: Extremities without clubbing, cyanosis, or edema. NEURO: Alert & Oriented x4 to person, place, time, situation. 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 He follows with Dr. Maldonado. Pt had a cystoscopy with reported cauterization about [address] Maldonado. Patient was [place] [facility] [place] Patient then had Pena catheter removed and bladder irrigation on 10/15/16. Patient returned to ER 10/16/17 with abdominal pain secondary to urinary obstruction. Pts labs at admission noted Hgb 6.1/Hct 18.4. Pt is being admitted for for transfusion and urology evaluation. bilateral hydroureteronephrosis related to bladder cancer status post bilateral stent placement -off cbi -s/p bilateral nephrostomy tubes 10/20 -10/22 ureteral stents removed by Urology -today going for internalization per IR -pred taper.amicar -bmp pending - anticipate d/c to SNF in next 1-2 days (3) Symptomatic anemia ICD Codes: D64.9 - Anemia, unspecified Status: Acute Plan: On admission patient's hgb was 6.1 - see above (4) Metastatic urothelial carcinoma ICD Codes: C79.10 - Secondary malignant neoplasm of unspecified urinary organs Status: Chronic Plan: - see above (5) Acute kidney injury superimposed on CKD ICD Codes: N17.9 - Acute kidney failure, unspecified; N18.9 - Chronic kidney disease, unspecified Status: Acute Plan: Elevated renal function likely secondary retention On admission BUN 55 creatinine 3.37 estimated GFR 18 Pena catheter placed and draining IV fluids monitor renal function (6) Recurrent deep vein thrombosis (DVT) ICD Codes: I82.409 - Acute embolism and thrombosis of unspecified deep veins of unspecified lower extremity Plan: - Pt had IVC filter placed in 07/2017. He could not tolerate anticoagulants due to hematuria. (7) HTN (hypertension), benign ICD Codes: I10 - Essential (primary) hypertension Status: Chronic Plan: - Home meds continued - Clonidine PRN (8) Hypothyroidism ICD Codes: E03.9 - Hypothyroidism, unspecified Status: Chronic Plan: - Home meds continued (9) Shingles ICD Codes: B02.9 - Zoster without complications Status: Acute Plan: Valtrex norco prn Dustin Moreno DO Oct 25, 2017 17:31
[2017-10-25] MEDS: TAMSULOSIN HCL 0.4 MG CAP PO SCH (22:42)
[2017-10-26] VITALS: BP 157/80; PULSE 71; RESP 17; TEMP 98.4; O2SAT 94
[2017-10-26] MEDS: SIMETHICONE 125 MG CHEWABLE TAB PO SCH ×2 (02:16→13:17)
[2017-10-26 04:00] VITALS: BP 145/84; PULSE 71; RESP 17; TEMP 98.2; O2SAT 96
[2017-10-26 04:10] VITALS: PULSE 73
[2017-10-26] MEDS ORDERED: LEVOTHYROXINE SODIUM 125 MCG TAB PO SCH (06:00)
[2017-10-26] MEDS: AMINOCAPROIC ACID 500 MG TAB PO SCH ×3 (06:29→17:27)
[2017-10-26 08:00] VITALS: BP 149/78; PULSE 67; PULSE 77; RESP 20; TEMP 98.4; O2SAT 96
[2017-10-26 08:07] LABS: AUTOMATED NEUTROPHIL # 8.8 TH/MM3 (1.8-7.7); BASOPHIL % 0.1 % (0.0-2.0); HEMATOCRIT 26.5 % (39.0-51.0); HEMOGLOBIN 8.9 GM/DL (13.0-17.0); LYMPH % 6.2 % (9.0-44.0); LYMPHOCYTE # 0.6 TH/MM3 (1.0-4.8); MEAN CELL VOLUME 93.2 FL (80.0-100.0); MEAN CORPUSCULAR HEMOGLOBIN 31.4 PG (27.0-34.0); MEAN CORPUSCULAR HGB CONC 33.7 % (32.0-36.0); MEAN PLATELET VOLUME 6.9 FL (7.0-11.0); MONO % 3.3 % (0.0-8.0); MONOCYTE # 0.3 TH/MM3 (0-0.9); NEUT % 90.4 % (16.0-70.0); PLATELET COUNT 142 TH/MM3 (150-450); RED BLOOD COUNT 2.84 MIL/MM3 (4.50-5.90); RED CELL DISTRIBUTION WIDTH 15.8 % (11.6-17.2); WHITE BLOOD COUNT 9.8 TH/MM3 (4.0-11.0)
[2017-10-26 08:30] LABS: BICARBONATE 21.5 MEQ/L (21.0-32.0); CALCIUM 7.8 MG/DL (8.5-10.1); CREATININE 1.54 MG/DL (0.60-1.30); MAGNESIUM 2.3 MG/DL (1.5-2.5)
--- NOTE | 2017-10-26 08:54 | RADRPT ---
EXAM DATE/TIME: 10/26/2017 08:04 [facility] COMPARISON: ABDOMEN KUB ONLY, October 25, 2017, 10:37. INDICATIONS : Distention MEDICAL HISTORY : Chronic kidney disease, Metastatic urothelial carcinoma of the bladder, Hydronephrosis, DVT, HTN, Monserrat betes, Hypothyroidism, Chronic anemia SURGICAL HISTORY : IVC filter, Colonoscopy with ureteral stent placement, Bilateral cataract,surgery, Hernia reppair, Va ricose vein ligation ENCOUNTER: Subsequent ACUITY: 4 - 6 days PAIN SCORE: 8/10 LOCATION: Bilateral Abdomen FINDINGS: 2 supine AP views of the abdomen. Bilateral ureteral stents remain in place. Air-filled loops of smal l bowel are again seen with less distention than on the comparison study. Scattered gas in the colon. IVC filter also noted. CONCLUSION: Decrease in gaseous small bowel distention. Juan Manuel Jeter MD on October 26, 2017 at 8:50 Board Certified Radiologist. This report was verified electronically.
[2017-10-26 09:27] LABS: LYMPHOCYTES 4 % (9-44); MONOCYTES 3 % (0-8); MYELOCYTES 1 % (0-0); NEUTROPHIL # MANUAL DIFF 9.1 TH/MM3 (1.8-7.7); POLYS (SEG NEUTROPHILS) 92 % (16-70)
[2017-10-26 09:28] LABS: KERATOCYTES OCC (NORMAL); OVALOCYTES 1+ (NORMAL)
[2017-10-26] MEDS: predniSONE 20 MG TAB PO SCH (09:46)
[2017-10-26] MEDS: SODIUM CHLORIDE 0.9% FLUSH 10 ML FLUSH IV FLUSH SCH (09:47)
[2017-10-26] MEDS: FINASTERIDE 5 MG TAB PO SCH (09:47)
[2017-10-26] MEDS: URIBEL PO SCH (09:47)
[2017-10-26 12:00] VITALS: BP 155/82; PULSE 68; RESP 18; TEMP 97.7; O2SAT 94
--- NOTE | 2017-10-26 14:19 | HHI.PR ---
Subjective Remarks Pt had BM yesterday and today. Pt is tolerating PO intake. Pt is eager for discharge to SNF. Objective Vitals Vital Signs Date Time Temp Pulse Resp B/P (MAP) Pulse Ox O2 Delivery O2 Flow Rate FiO2 10/26/17 12:00 97.7 68 18 155/82 (106) 94 10/26/17 08:00 98.4 77 20 149/78 (101) 96 10/26/17 04:10 73 10/26/17 04:00 Room Air 10/26/17 04:00 98.2 71 17 145/84 (104) 96 10/26/17 00:00 Room Air 10/26/17 00:00 98.4 71 17 157/80 (105) 94 10/25/17 23:43 76 10/25/17 20:00 Room Air 10/25/17 20:00 98.3 75 17 149/83 (105) 95 10/25/17 19:43 81 10/25/17 16:00 98.5 79 20 133/69 (90) 96 10/25/17 16:00 76 Result Diagram: 10/26/17 0645 10/26/17 0645 Imaging Last Impressions Abdomen X-Ray 10/25/17 0000 Signed Impressions: Service Date/Time: Wednesday, October 25, 2017 10:37 - CONCLUSION: Bilateral ureteral stents in place. Mildly dilated air-filled small bowel indicating possible ileus. Juan Manuel Jeter MD Ureter Stent X-Ray 10/23/17 0000 Signed Impressions: Service Date/Time: October 13:38 - CONCLUSION: Uncomplicated nephroureteral stent placement as above. This was exchanged for an existing percutaneous nephrostomy tube. Juan Henderson MD Nephrostomy 10/20/17 0000 Signed Impressions: Service Date/Time: Friday, October 20, 2017 11:56 - CONCLUSION: Uncomplicated nephrostomy tube placement as above. Juan Henderson MD Chest X-Ray 10/16/17 0911 Signed Impressions: Service Date/Time: October 09:18 - CONCLUSION: 1. Cardiomegaly. No acute pulmonary disease. Ron Lopez MD Objective Remarks GENERAL: This is a well-nourished, well-developed patient, in no apparent distress. CARDIOVASCULAR: Regular rate and rhythm without murmurs, gallops, or rubs. RESPIRATORY: Clear to auscultation. Breath sounds equal bilaterally. No wheezes , rales, or rhonchi. GASTROINTESTINAL: abdomen distended, tympanic on percussion, +BS x 4, no g/r/r MUSCULOSKELETAL: Extremities without clubbing, cyanosis, or edema. NEURO: Alert & Oriented x4 to person, place, time, situation. Moves all ext x4 A/P Problem List: (1) Abdominal distension ICD Codes: R14.0 - Abdominal distension (gaseous) Status: Resolved Plan: - pt had BM yesterday and today - KUB (10/25) --> possible ileus - KUB (10/26) --> NO acute findings - discharge to SNF this evening as previously planned. 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 He follows with Dr. Maldonado. Pt had a cystoscopy with reported cauterization about [address] Maldonado. Patient was recently admitted to [facility] on 10/12/17 for blood transfusion Patient then had Pena catheter removed and bladder irrigation on 10/15/16. Patient returned to ER 10/16/17 with abdominal pain secondary to urinary obstruction. Pts labs at admission noted Hgb 6.1/Hct 18.4. Pt is being admitted for for transfusion and urology evaluation. bilateral hydroureteronephrosis related to bladder cancer status post bilateral stent placement -off cbi -s/p bilateral nephrostomy tubes 10/20 -10/22 ureteral stents removed by Urology -today going for internalization per IR -pred taper.amicar -bmp pending - anticipate d/c to SNF in next 1-2 days (3) Symptomatic anemia ICD Codes: D64.9 - Anemia, unspecified Status: Acute Plan: On admission patient's hgb was 6.1 - see above (4) Metastatic urothelial carcinoma ICD Codes: C79.10 - Secondary malignant neoplasm of unspecified urinary organs Status: Chronic Plan: - see above (5) Acute kidney injury superimposed on CKD ICD Codes: N17.9 - Acute kidney failure, unspecified; N18.9 - Chronic kidney disease, unspecified Status: Acute Plan: Elevated renal function likely secondary retention On admission BUN 55 creatinine 3.37 estimated GFR 18 Pena catheter placed and draining IV fluids monitor renal function (6) Recurrent deep vein thrombosis (DVT) ICD Codes: I82.409 - Acute embolism and thrombosis of unspecified deep veins of unspecified lower extremity Plan: - Pt had IVC filter placed in 07/2017. He could not tolerate anticoagulants due to hematuria. (7) HTN (hypertension), benign ICD Codes: I10 - Essential (primary) hypertension Status: Chronic Plan: - Home meds continued - Clonidine PRN (8) Hypothyroidism ICD Codes: E03.9 - Hypothyroidism, unspecified Status: Chronic Plan: - Home meds continued (9) Shingles ICD Codes: B02.9 - Zoster without complications Status: Acute Plan: Valtrex norco prn Dustin Moreno DO Oct 26, 2017 14:19
[2017-10-26 16:00] VITALS: BP 105/52; PULSE 77; RESP 18; TEMP 98.4; O2SAT 95
== END 2017-10-26 18:02 | DRG 669 ==
LOC: NEPE 07:43 → NEDA 09:22 → N04A 11:09
PROVIDERS: ADMIT Hospitalist; ATTEND Hospitalist
PROC: 0T9B70Z Drainage of Bladder with Drainage Device, Via Natural or Artificial Opening (ICD-10-PCS; 2017-10-16)
PROC: 30233N1 Transfusion of Nonautologous Red Blood Cells into Peripheral Vein, Percutaneous Approach (ICD-10-PCS; 2017-10-16)
PROC: 0T9030Z Drainage of Right Kidney with Drainage Device, Percutaneous Approach (ICD-10-PCS; 2017-10-20)
PROC: 0T9130Z Drainage of Left Kidney with Drainage Device, Percutaneous Approach (ICD-10-PCS; 2017-10-20)
PROC: BT141ZZ Fluoroscopy of Kidneys, Ureters and Bladder using Low Osmolar Contrast (ICD-10-PCS; 2017-10-20)
PROC: 0TCB8ZZ Extirpation of Matter from Bladder, Via Natural or Artificial Opening Endoscopic (ICD-10-PCS; 2017-10-22)
PROC: 0TP98DZ Removal of Intraluminal Device from Ureter, Via Natural or Artificial Opening Endoscopic (ICD-10-PCS; 2017-10-22)
PROC: 0T5B8ZZ Destruction of Bladder, Via Natural or Artificial Opening Endoscopic (ICD-10-PCS; principal; 2017-10-22 14:55)
PROC: 0TP5X0Z Removal of Drainage Device from Kidney, External Approach (ICD-10-PCS; 2017-10-23)
PROC: 0TP5X0Z Removal of Drainage Device from Kidney, External Approach (ICD-10-PCS; 2017-10-23)
PROC: 0T783DZ Dilation of Bilateral Ureters with Intraluminal Device, Percutaneous Approach (ICD-10-PCS; 2017-10-23)
PROC: BT141ZZ Fluoroscopy of Kidneys, Ureters and Bladder using Low Osmolar Contrast (ICD-10-PCS; 2017-10-23)
DX: N32.0 Bladder-neck obstruction (principal); N18.4 Chronic kidney disease, stage 4 (severe); C79.89 Secondary malignant neoplasm of other specified sites; E11.22 Type 2 diabetes mellitus with diabetic chronic kidney disease; K56.7 Ileus, unspecified; N17.9 Acute kidney failure, unspecified; N13.1 Hydronephrosis with ureteral stricture, not elsewhere classified; E86.0 Dehydration; N02.9 Recurrent and persistent hematuria with unspecified morphologic changes; N13.30 Unspecified hydronephrosis; C67.9 Malignant neoplasm of bladder, unspecified; D64.9 Anemia, unspecified; B02.9 Zoster without complications; E78.5 Hyperlipidemia, unspecified; E03.9 Hypothyroidism, unspecified; M19.90 Unspecified osteoarthritis, unspecified site; I12.9 Hypertensive chronic kidney disease with stage 1 through stage 4 chronic kidney disease, or unspecified chronic kidney disease; I51.7 Cardiomegaly; E20.9 Hypoparathyroidism, unspecified; Z66 Do not resuscitate; Z86.718 Personal history of other venous thrombosis and embolism; Z86.711 Personal history of pulmonary embolism; Z51.5 Encounter for palliative care; R06.02 Shortness of breath; R53.1 Weakness; Z79.899 Other long term (current) drug therapy
CPT/HCPCS: 36430; 50432; 50434; 51702; 71045; 74018; 80048; 80053; 81001; 82550; 82552; 83735; 84484; 85007; 85025; 85027; 85610; 85730; 86850; 86900; 86901; 86902; 86920; 86921; 86922; 87086; 93005; 96374; 99152; 99153; C1729; C1769; C1877; C1887; J1100; J1170; J1940; J1956; J2250; J2270; J2405; J3010; J7050; J7512; P9016; Q9967

== ENCOUNTER 2017-10-28 15:42 | Emergency (ER) | payer MEDICARE ==
[~2017-10-28 15:42] MED LIST changes: +HYDR-3516 PO; +PRED10 PO
[2017-10-28 15:43] VITALS: BP 173/72; PULSE 105; RESP 18; TEMP 98.6; O2SAT 98
[2017-10-28 17:43] VITALS: BP 155/74; PULSE 90; RESP 18; TEMP 98.3; O2SAT 99
--- NOTE | 2017-10-28 17:54 | PD ---
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 He has bilateral hydronephrosis from malignant bladder cancer spread into his pelvis. He went home from the custodial today at 10 AM feeling fine. At 2 PM he noticed the left nephrostomy tube was leaking. He came to the ER to see if he could get it replaced or fixed. He is not having any acute symptoms. Denies fever or injury. Severity is moderate. No alleviating factors. Exacerbating factors. Duration is 4 hours PFSH Past Medical History Arthritis: Yes (Left Shoulder) Asthma: No Autoimmune Disease: No Blood Disorders: No Anxiety: No Depression: No Heart Rhythm Problems: No Cancer: Yes (BLADDER) Cardiovascular Problems: Yes High Cholesterol: No Chemotherapy: Yes Chest Pain: No Congestive Heart Failure: No COPD: No Cerebrovascular Accident: No Diabetes: No Diminished Hearing: No Endocrine: Yes Gastrointestinal Disorders: No GERD: No Glaucoma: No Genitourinary: Yes (BLADDER CANCER - bilat urostomy tubes) Headaches: No Hepatitis: No Hiatal Hernia: No Heparin Induced Thrombocytopen: No Hypertension: Yes Immune Disorder: No Implanted Vascular Access Dvce: No Kidney Stones: No Medical other: Yes (arthritis) Musculoskeletal: Yes (ARTHRITIS) Neurologic: No Psychiatric: No Reproductive: No Respiratory: No Immunizations Current: No Migraines: No Radiation Therapy: Yes Renal Failure: Yes Seizures: No Sickle Cell Disease: No Sleep Apnea: No Thyroid Disease: Yes (HYPOTHYROIDISM) Ulcer: No Past Surgical History Abdominal Surgery: Yes (hernia repair) AICD: No Arteriovenous Shunt: No Cardiac Surgery: No Ear Surgery: No Endocrine Surgery: No Eye Surgery: Yes (sx for double vision left eye) Genitourinary Surgery: Yes (KIDNEY STENTS ) Gynecologic Surgery: No Insulin Pump: No Joint Replacement: No Neurologic Surgery: No Oral Surgery: No Pacemaker: No Thoracic Surgery: No Other Surgery: Yes Social History Alcohol Use: Yes (occ) Tobacco Use: No Substance Use: No Allergies-Medications (Allergen,Severity, Reaction): Coded Allergies: No Known Allergies (Verified Allergy, Unknown, 10/16/17) Reported Meds & Prescriptions Reported Meds & Active Scripts Active Prednisone 10 Mg Tab 10 Mg PO DIRECTED 5 Days 20mg daily x 2 days, 10mg daily x 3 days Temazepam 15 Mg Cap 15 Mg PO HS PRN Reported Vitamin C (Ascorbic Acid) 1,000 Mg Tablet.er Uribel (Bhnrgjcpyll-Lwgly-Edcohgojb Blue) 1 Cap 2 Cap PO DAILY B12 (Cyanocobalamin) 1,000 Mcg Tab DAILY Zinc (Zinc Gluconate) 50 Mg Tab 1 Tab PO DAILY Magnesium 200 Mg Tab 250 Mg PO DAILY Proscar (Finasteride) 5 Mg Tab 5 Mg PO DAILY Do not crush. Tamsulosin (Tamsulosin HCl) 0.4 Mg Cap 0.4 Mg PO HS Amlodipine (Amlodipine Besylate) 10 Mg Tab 10 Mg PO DAILY Levothyroxine (Levothyroxine Sodium) 125 Mcg Tab 125 Mcg PO DAILY Review of Systems General / Constitutional: No: Fever Eyes: No: Visual changes HENT: No: Headaches Cardiovascular: No: Chest Pain or Discomfort Respiratory: No: Shortness of Breath Gastrointestinal: No: Abdominal Pain Genitourinary: No: Dysuria Musculoskeletal: No: Pain Skin: No Rash Neurologic: No: Weakness Psychiatric: No: Depression Endocrine: No: Polydipsia Hematologic/Lymphatic: No: Easy Bruising Physical Exam Narrative GENERAL: Well-nourished, well-developed patient in no apparent distress. SKIN: Focused skin assessment reveals no rash and nodules. Skin is Warm and dry. HEAD: Atraumatic. Normocephalic. EYES: Pupils equal and round. No scleral icterus. No injection or drainage. ENT: No nasal bleeding or discharge. Mucous membranes pink and moist. NECK: Trachea midline. No JVD. CARDIOVASCULAR: Regular rate and rhythm. No murmur appreciated. RESPIRATORY: No accessory muscle use. Clear to auscultation. Breath sounds equal bilaterally. GASTROINTESTINAL: Abdomen soft, non-tender, nondistended. Hepatic and splenic margins not palpable. MUSCULOSKELETAL: No obvious deformities. No clubbing. No cyanosis. No edema. Examination the back reveals he has bilateral nephrostomy tubes in place. The right side is clean and dry. The left side is soaked and every few seconds a drop of urine drips out of the hole and down the nephrostomy tube catheter. NEUROLOGICAL: Awake and alert. No obvious cranial nerve deficits. Motor grossly within normal limits. Normal speech. PSYCHIATRIC: Appropriate mood and affect; insight and judgment normal. Data Data Last Documented VS Vital Signs Date Time Temp Pulse Resp B/P (MAP) Pulse Ox O2 Delivery O2 Flow Rate FiO2 10/28/17 17:43 98.3 90 18 155/74 (101) 99 Room Air MDM Medical Decision Making Medical Screen Exam Complete: Yes Emergency Medical Condition: Yes Medical Record Reviewed: Yes Differential Diagnosis Nephrostomy leak, nephrostomy malpositioned Narrative Course I have reviewed the patient's electronic medical record. Reviewed radiology note from October 20 when nephrostomy was placed as well as discharge summary from recent hospitalization IV placed I reviewed with radiologist Dr. Dylan Yanes. He is going to replace the leaking left nephrostomy tube with a fresh new one. After his tube is replaced he will be stable for discharge home Diagnosis Primary Impression: Nephrostomy tube failure with subsequent urine leak Additional Impression: Metastatic urothelial carcinoma Additional Instructions: The patient was advised to follow up with their physician and return if they worsen. Med/Other Pt SpecificInfo: Other Disposition: DISCHARGE HOME Condition: Stable Murali Jung MD Oct 28, 2017 17:54
--- NOTE | 2017-10-28 18:41 | PD.RAD ---
Post Procedure Progress Note Pre Procedure Diagnosis: (1) Bladder cancer Post Procedure Diagnosis: (1) Bladder cancer Procedure Date: Oct 28, 2017 Supervising Radiologist: Dylan Yanes Proceduralist/Assist: RT Elsa(R)(CV) Anesthesia: Conscious Sedation Plan of Activity Patient to Unit: Nursing Unit Patient Condition: Good See PACS Report for procedural detail/treatment Drainage Procedure Procedure 1 Imaging Guidance: Fluoroscopy Side: Left Procedure Type: Ureteral Stent Procedure: Exchange Lithuanian: 8 Drainage: Newton drainage Dylan Yanes MD Oct 28, 2017 18:41
[2017-10-28] MEDS ORDERED: IOHEXOL 350 MG/ML 50 ML BTL (for RAD DIAG) OTHER ONE (18:51)
--- NOTE | 2017-10-28 19:05 | RADRPT ---
EXAM DATE/TIME: 10/28/2017 18:06 [facility] COMPARISON: No previous studies available for comparison. INDICATIONS : Patient with chronic bladder mass presents with nephroureteral stent in need of ev aluation and possible exchange. Leaking tube site on the left. MEDICAL HISTORY : Chronic kidney disease Metastatic urothelial carcinoma of the bladder Hydronephrosis DVT HTN Diabetes Hypothyroidism Chronic anemia Cataracts SURGICAL HISTORY : IVC filter Cystoscopy with ureteral stent placement Bilateral cataract surgery Hernia repair Varicose vein ligation ENCOUNTER: Subsequent ACUITY: 1 day PAIN SCORE: 0/10 LOCATION: N/A FLUORO TIME: 2.3 minutes IMAGE SERIES: CONTRAST: 30 cc Omnipaque (iohexol) 350 MEDICATION(S): 1.) 50 mcg fentanyl (Sublimaze) IV DEVICE(S): 1.) 8 Lithuanian 24 CM nephroureteral stent TECHNIQUE: The patient was placed prone on the fluoroscopy table. The patient's existing left nep hroureteral catheter was prepped with surrounding skin as a sterile field. Full sterile technique was used, including cap, mask, sterile gloves and gown and a large sterile sheet. Hand hygiene and 2% ch lorhexidine and/or betadine/alcohol prep was utilized per protocol for cutaneous antisepsis. Under direct fluoroscopic guidance, a hydrophilic guidewire was introduced and coiled into the urinar y bladder to maintain good stable access. The existing nephroureteral catheter was removed intact. A new 8 Lithuanian 24 cm nephroureteral catheter was introduced and formed up with distal loop in the urina ry bladder and proximal loop in the renal pelvis. The catheter was connected to gravity drainage. Goo d positioning was confirmed with digital imaging. The patient tolerated the procedure well and was ta dorys to the recovery area in stable condition. CONCLUSION: Uncomplicated fluoroscopic guided nephroureteral catheter exchange as described in de tail above. Dylan Yanes MD on October 28, 2017 at 19:00 Board Certified Radiologist. This report was verified electronically.
== END 2017-10-28 19:59 | disposition home or self-care (01) ==
LOC: NEPE 15:42
DX: T83.012A Breakdown (mechanical) of nephrostomy catheter, initial encounter (principal); C67.9 Malignant neoplasm of bladder, unspecified; C79.89 Secondary malignant neoplasm of other specified sites; E03.9 Hypothyroidism, unspecified
CPT/HCPCS: 50387; 99284; C1769; C1877; J3010; Q9967